=== PATIENT | female | born 1955 | race Caucasian/White ===

== ENCOUNTER → 2016-04-15 | Outpatient (CLI) | payer OTHER ==
[~2016-04-15] MED LIST: ANAS1TAB6 PO; AZITTAB PO; CETI10TA84 PO; CHOL100010 PO; FLUT0.15 NAE; HYDR-5688 PO; LEVOPOW PO; LORA10TA44 PO; MULT-506 PO; NAPR1CAP12 PO; TAMO20TA47 PO; ZNTT/150 PO
[2016-04-15 12:23] LABS: BASO % 0.8 %; BASO ABS # 0.04 K/uL (0-0.2); COMPLETE YES; LYMPH % 23.3 %; LYMPH ABS # 1.16 K/uL (1.2-3.4); MEAN CELL VOLUME 93.3 fL (80-100); MEAN CORPUSCULAR HEMOGLOBIN 30.6 pg (25-34); MEAN CORPUSCULAR HGB CONC 32.8 g/dl (32-36); MONO % 11.1 %; NEUT % 62.8 %; PLATELET COUNT 234 K/uL (130-400); RED BLOOD COUNT 3.86 M/uL (4.2-5.4); WHITE BLOOD COUNT 4.97 K/uL (4.8-10.8)
[2016-04-15 12:35] LABS: ALT/SGPT 84 U/L (12-78); BLOOD UREA NITROGEN 13 mg/dl (7-18); BUN/CREATININE RATIO 16.4 (10-20); CALCIUM 9.2 mg/dl (8.5-10.1); CARBON DIOXIDE 26 mmol/L (21-32); CHLORIDE 106 mmol/L (98-107); CREATININE 0.77 mg/dl (0.60-1.20); GLUCOSE 96 mg/dl (70-99); POTASSIUM 3.9 mmol/L (3.5-5.1); SODIUM 142 mmol/L (136-145)
[2016-04-15 12:38] LABS: ALB/GLOB RATIO 1.1 (0.9-2); ALKALINE PHOSPHATASE 109 U/L (45-117); AST/SGOT 50 U/L (15-37)
--- NOTE | 2016-04-17 07:26 | CODING QUERY NO DIAGNOSIS ---
TREATMENT RENDERED WITHOUT A DIAGNOSIS To promote full compliance with coding requirements relating to patient care, physician participation is requested in all cases of middle school director uncertainty. Please assist us with providing a diagnosis/symptom for the test(s) below: A diagnosis/symptom was not documented on your Order. A valid diagnosis/symptom is required to bill all insurances. Please remember that we are unable to code a diagnosis of rule out, probable, possible, questionable, or suspected. Tests that require a diagnosis: DOS 04/15 * CBC, CMP DIAGNOSIS: Provider Signature: Date: Thank you Carmelina Mtz Health Information Management Once completed, please kindly fax back to [phone] For questions please call [phone]
== END | disposition home or self-care (01) ==
LOC: C.LABBFT 08:59
PROVIDERS: ATTEND Internal Medicine Hematology & Oncology
DX: D05.10 Intraductal carcinoma in situ of unspecified breast (principal)

== ENCOUNTER → 2016-04-17 | Outpatient (CLI) | payer OTHER ==
[2016-04-17 14:36] VITALS: BP 119/71; PULSE 82; TEMP 36.9; O2SAT 93
--- NOTE | 2016-04-17 16:03 | Radiation Oncology Follow-Up ---
Radiation Oncology Follow-Up Date of Visit Apr 17, 2016. Reason For Visit One month and cancer survivorship care plan Radiation Completion Date finished 03-14-2016 Diagnosis (1) Breast cancer Onset Date: 12/19/2015 Stage: 0 Permanent Comment: STAGING: Right breast, DCIS, high grade, comedonecrosis present, ER positive, [place] negative, pTis, stage 0 TREATMENT: 1. Steriotactic Biopsy - 12/19/2015 2. Lumpectomy - 01/15/2016 - Dr. Bc Hernandez 3. Status post completion of radiation therapy 03/14/2016 received 5130 cGy utilizing hypo-fractionation Last Edited By: Malinda Miller on Mar 24, 2016 14:59 History of Present Illness Ms. Frias is a 60-year-old postmenopausal female who presented with an abnormal screening mammogram on 11/27/2015 which showed a cluster of calcifications in the right breast. She underwent a unilateral right diagnostic mammogram on 12/19/2015 which revealed a cluster of microcalcifications in the right breast from the 11:00 to 11:30 position measuring 2 cm in diameter. She then underwent a stereotactic guided biopsy of the right breast on 12/19/2015 which revealed atypical ductal hyperplasia suspicious for ductal carcinoma in situ. The patient was seen in consultation by Dr. Bc Hernandez who discussed treatment options including mastectomy and breast conserving therapy including a lumpectomy and adjuvant radiation therapy. The patient elected for a lumpectomy and underwent the procedure 01/[address] Bc Hernandez. 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 The margins were negative however there was a close 1 mm margin. The tumor was estrogen receptor positive and progesterone receptor negative. The patient was seen by Dr. Gerry Bell for medical oncology who recommended anti-hormonal therapy. We are now seeing the patient in consultation to discuss the role of adjuvant radiation therapy. Overall, the patient is doing relatively well. She is feeling well from her surgery. She has no other complaints. Final decision following CT simulation was to treat with a hypo-fractionation. This was completed March 2016. She received 5130 cGy Interim History She's been doing well over the past month. She had some mild dryness of the skin for which she used Aquaphor following treatment. She is noted no masses or tenderness. She saw Dr. Bell in follow-up and has now been started on tamoxifen. She denies any side effects to the medication. She has noticed no hot flashes. She has had no problems with weight gain. She saw him in January and had a recheck again this past week. She currently is not scheduled for follow-up mammography. She has a recheck visit with Dr. Hernandez scheduled. Allergies Coded Allergies: Statins (Verified Allergy, Unknown, MUSCLE PAINS, 01/15/16) Home Medications Scheduled Cholecalciferol (Vitamin D), 1 TAB PO QAM Levothyroxine Sodium (Bulk) (L-Thyroxine Sodium), 25 MCG PO QAM Multivitamin (Multivitamin), 2 TAB PO QAM Tamoxifen (Nolvadex), 20 MG PO DAILY Scheduled PRN Loratadine (Allergy), 1 TAB PO DAILY PRN for PRN Naproxen Sodium (Aleve), 1 TAB PO BID PRN for Pain Review of Systems Gastrointestinal: Symptoms: WNL Oral: Symptoms: No Problems Respiratory: Symptoms: WNL Urinary: Symptoms: WNL Skin: Symptoms: No Problems Breast: Right Upper Arm Measurement: 34.5 Right Mid Arm Measurement: 27.5 Right Wrist Measurement: 17.0 Left Upper Arm Measurement: 34.7 Left Mid Arm Measurement: 27.4 Left Wrist Measurement: 17.0 Arm Dominence: Right Patient Cosmetic Evaluation: Good Staff Cosmetic Evalaluation: Good Physical Exam Vital Signs Date Time Temp Pulse Resp B/P Pulse Ox O2 Delivery O2 Flow Rate FiO2 04/17/16 14:36 36.9 82 18 119/71 93 Pain: Side: Bilateral Patient Pain Scale: 0 - 10 Initial Pain Intensity: 0.0 General Appearance: no apparent distress Eyes: normal inspection, EOMI ENT: normal ENT inspection, hearing grossly normal Neck: no adenopathy, thyroid normal Respiratory/Chest: lungs clear, no respiratory distress, no accessory muscle use Breast: Breast examination reveals mild hyperpigmentation especially noted of the right upper anterior chest wall just below the breast. There is fading hyperpigmentation of the breast. There are no masses or tenderness and no axillary adenopathy. She is no skin retractions or nipple changes. Using the [place] score cosmesis she has a good outcome. Left breast shows no masses or tenderness and no axillary adenopathy. Cardiovascular: regular rate, rhythm, no gallop, no murmur Extremities: no pedal edema Neurologic/Psychiatric: no motor/sensory deficits, alert, normal mood/affect Skin: warm/dry Lymphatic: no adenopathy Laboratory Studies Test 01/22/16 15:30 04/15/16 09:03 White Blood Count 8.16 K/uL (4.8-10.8) 4.97 K/uL (4.8-10.8) Red Blood Count 3.92 M/uL (4.2-5.4) 3.86 M/uL (4.2-5.4) Hemoglobin 12.3 g/dL (12.0-16.0) 11.8 g/dL (12.0-16.0) Hematocrit 36.3 % (37-47) 36.0 % (37-47) Mean Corpuscular Volume 92.6 fL (80-100) 93.3 fL (80-100) Mean Corpuscular Hemoglobin 31.4 pg (25-34) 30.6 pg (25-34) Mean Corpuscular Hemoglobin Concent 33.9 g/dl (32-36) 32.8 g/dl (32-36) Platelet Count 254 K/uL (130-400) 234 K/uL (130-400) Mean Platelet Volume 11.6 fL (7.4-10.4) 12.0 fL (7.4-10.4) Neutrophils (%) (Auto) 57.1 % 62.8 % Lymphocytes (%) (Auto) 31.7 % 23.3 % Monocytes (%) (Auto) 9.1 % 11.1 % Eosinophils (%) (Auto) 1.7 % 2.0 % Basophils (%) (Auto) 0.2 % 0.8 % Neutrophils # (Auto) 4.65 K/uL (1.4-6.5) 3.12 K/uL (1.4-6.5) Lymphocytes # (Auto) 2.59 K/uL (1.2-3.4) 1.16 K/uL (1.2-3.4) Monocytes # (Auto) 0.74 K/uL (0.11-0.59) 0.55 K/uL (0.11-0.59) Eosinophils # (Auto) 0.14 K/uL (0-0.5) 0.10 K/uL (0-0.5) Basophils # (Auto) 0.02 K/uL (0-0.2) 0.04 K/uL (0-0.2) RDW Standard Deviation 44.7 fL (36.4-46.3) 46.4 fL (36.4-46.3) RDW Coefficient of Variation 13.2 % (11.5-14.5) 13.7 % (11.5-14.5) Immature Granulocyte % (Auto) 0.2 % 0.0 % Immature Granulocyte # (Auto) 0.02 K/uL (0.00-0.02) 0.00 K/uL (0.00-0.02) Sodium Level 141 mmol/L (136-145) 142 mmol/L (136-145) Potassium Level 3.7 mmol/L (3.5-5.1) 3.9 mmol/L (3.5-5.1) Chloride Level 104 mmol/L (98-107) 106 mmol/L (98-107) Carbon Dioxide Level 29 mmol/L (21-32) 26 mmol/L (21-32) Anion Gap 8.0 mmol/L (3-11) 10.0 mmol/L (3-11) Blood Urea Nitrogen 16 mg/dl (7-18) 13 mg/dl (7-18) Creatinine 0.81 mg/dl (0.60-1.20) 0.77 mg/dl (0.60-1.20) Estimated GFR () 91.5 97.3 Estimated GFR (Non- 78.9 83.9 BUN/Creatinine Ratio 20.2 (10-20) 16.4 (10-20) Random Glucose 75 mg/dl (70-99) 96 mg/dl (70-99) Calcium Level 9.0 mg/dl (8.5-10.1) 9.2 mg/dl (8.5-10.1) Total Bilirubin 0.4 mg/dl (0.2-1) 0.4 mg/dl (0.2-1) Aspartate Amino Transferase (AST) 23 U/L (15-37) 50 U/L (15-37) Alanine Aminotransferase (ALT) 32 U/L (12-78) 84 U/L (12-78) Alkaline Phosphatase 104 U/L (45-117) 109 U/L (45-117) Total Protein 8.1 gm/dl (6.4-8.2) 7.6 gm/dl (6.4-8.2) Albumin 4.4 gm/dl (3.4-5.0) 4.0 gm/dl (3.4-5.0) Globulin 3.7 gm/dl (2.5-4.0) 3.6 gm/dl (2.5-4.0) Albumin/Globulin Ratio 1.2 (0.9-2) 1.1 (0.9-2) Assessment & Plan Plan: The patient was seen and examined today by Dr. Agosto. Continue regular follow-up with her primary Care physician, Dr. Bell and Dr. Hernandez. Follow-up mammography was scheduled. She will have digital diagnostic mammograms. The right breast will be evaluated in 2 months. She'll then have bilateral mammography in 8 months. We reviewed that she'll continue digital diagnostic mammograms of the right breast every 6 months for 2 years. Then we'll follow the recommendation of the radiologist. Today we completed a cancer survivorship care plan. A copy of the document was given to the patient. She is also given a survivorship booklet. She continues on the tamoxifen. She'll continue Aquaphor as needed for dryness of the skin. We asked her to return to our office in 6 months. She may call she has any questions or concerns in the interim. Total Time In Follow-Up I spent 20 minutes speaking to the patient and performing examination. I spent 20 minutes reviewing information, completing survivorship document, and completing this note. Copy To Bc Hernandez M.D.; Malvin Bliss M.D.; Gerry Bell D.O.
== END | disposition home or self-care (01) ==
LOC: C.ONC 14:22
PROVIDERS: ATTEND Radiology Radiation Oncology
DX: Z08 Encounter for follow-up examination after completed treatment for malignant neoplasm (principal); Z92.3 Personal history of irradiation; Z85.3 Personal history of malignant neoplasm of breast

== ENCOUNTER → 2016-06-16 | Outpatient (CLI) | payer OTHER ==
[~2016-06-16] MED LIST changes: -HYDR-5688 PO; -TAMO20TA47 PO; +TAMO20TA9 PO
--- NOTE | 2016-06-16 12:44 | MAMMOGRAPHY REPORT ---
UNILATERAL RIGHT DIGITAL DIAGNOSTIC MAMMOGRAM TOMOSYNTHESIS WITH CAD: 06/16/2016 CLINICAL HISTORY: 61-year-old woman with right breast DCIS status post lumpectomy and radiation ther apy. She presents to establish new baseline after treatment in the right breast. TECHNIQUE: Right breast CC and MLO 2-D digital and tomosynthesis images, spot magnification right CC and ML views were obtained. Current study was also evaluated with a Computer Aided Detection (CAD) system. COMPARISON: Comparison is made to exams dated: 12/10/2015 mammogram, 11/27/2015 mammogram, 11/23/2014 mammogram, 11/22/2013 mammogram, 11/18/2012 mammogram, and 11/17/2011 mammogram - [facility]. BREAST COMPOSITION: There are scattered areas of fibroglandular density in the right breast. FINDINGS: There is expected architectural distortion and 2 surgical clips in the 9:00 posterior rig ht breast, at the site of prior lumpectomy. A linear scar marker overlies the upper outer posterior right breast. There is a grouping of 2 round and adjacent very faint punctate amorphous microcalci fications extending over 11 mm in the upper outer posterior right breast, superior to the lumpectomy bed. Based on the spot magnification ML view and comparing back to prior available for field mammo grams, these microcalcifications have been stable on all available prior mammograms dating back to a t least 11/13/2009, and likely also 2005 based on the records available, although technique is sligh tly different given the screen film mammograms have been digitized and scanned into the system. Wit h approximately 7-11 years of stability these microcalcifications are most likely benign but can con tinue to assess that follow-up to ensure stability. Overall, no new suspicious mass, focal area of architectural distortion or new suspicious cluster of calcifications is identified. IMPRESSION: ACR-BI-RADS CATEGORY 3: PROBABLY BENIGN Expected post-therapeutic changes in the right breast, without definite mammographic evidence of mal ignancy. Follow-up right diagnostic mammograms including spot magnification views are recommended i n 6 months. Annual left mammography is also due at that time. These results and recommendations were discussed with the patient at the time of the exam. Approximately 10% of breast cancers are not detected with mammography. A negative mammographic repor t should not delay biopsy if a clinically suggestive mass is present. Bharti Adamson M.D. ay/:06/16/2016 10:56:46 Tourist Guide: Dena AYALA(R)(M), [facility] letter sent: Follow Up Recommended 3 BI-RADS Code: ACR-BI-RADS Category 3: Probably Benign
== END | disposition home or self-care (01) ==
LOC: C.MAMM 09:28
PROVIDERS: ATTEND Physician Assistant Medical
DX: D05.11 Intraductal carcinoma in situ of right breast (principal); Z98.890 Other specified postprocedural states; Z92.3 Personal history of irradiation

== ENCOUNTER → 2016-06-18 | Outpatient (CLI) | payer OTHER ==
[2016-06-18 12:59] LABS: ALKALINE PHOSPHATASE 96 U/L (45-117); ALT/SGPT 86 U/L (12-78); AST/SGOT 37 U/L (15-37)
== END | disposition home or self-care (01) ==
LOC: C.LABBFT 08:46
PROVIDERS: ATTEND Family Medicine
DX: D05.11 Intraductal carcinoma in situ of right breast (principal)

== ENCOUNTER → 2016-07-11 | Outpatient (CLI) | payer OTHER ==
[~2016-07-11] MED LIST changes: -LORA10TA44 PO
[2016-07-11 13:53] LABS: URINE APPEARANCE CLEAR (CLEAR); URINE BILIRUBIN NEG (NEG); URINE COLOR YELLOW; URINE EPITHELIAL CELL AUTO >30 /lpf (0-5); URINE NITRITE NEG (NEG); URINE SPECIFIC GRAVITY 1.017 (1.000-1.030); UROBILINOGEN NEG (NEG); ZZUR CULT IF INDIC CLEAN CATCH NO
[2016-07-11 13:57] LABS: MANUAL MICROSCOPIC REQUIRED? NO; REVIEW REQ? NO
== END | disposition home or self-care (01) ==
LOC: C.LABSPEC 12:36
PROVIDERS: ATTEND Internal Medicine
DX: R25.1 Tremor, unspecified (principal)

== ENCOUNTER → 2016-07-23 | Outpatient (CLI) | payer OTHER ==
[2016-07-23 12:31] LABS: ALKALINE PHOSPHATASE 125 U/L (45-117); ALT/SGPT 147 U/L (12-78); AST/SGOT 76 U/L (15-37)
== END | disposition home or self-care (01) ==
LOC: C.LABBFT 08:27
PROVIDERS: ATTEND Physician Assistant Medical
DX: R74.8 Abnormal levels of other serum enzymes (principal)

== ENCOUNTER → 2016-07-30 | Outpatient (CLI) | payer OTHER ==
--- NOTE | 2016-07-30 08:26 | DIAGNOSTIC IMAGING REPORT ---
Hydrocodone ultrasound (LIVER) ABDOMEN LIMITED CLINICAL HISTORY: R74.8 Abnormal liver enzymes TECHNIQUE: Ultrasound COMPARISON STUDY: None FINDINGS: Fatty infiltration of liver. Normal gallbladder. Common bile duct 4 mm. Normal pancreas and right kidney. IMPRESSION: Fatty infiltration of liver. Otherwise normal study Electronically signed by: Luis Armando Oakes M.D. 07/30/2016 8:25 AM Dictated Date/Time: 07/30/2016 8:24 AM
== END | disposition home or self-care (01) ==
LOC: C.ULTR 07:47
PROVIDERS: ATTEND Nurse Practitioner
DX: R74.8 Abnormal levels of other serum enzymes (principal); K76.0 Fatty (change of) liver, not elsewhere classified

== ENCOUNTER → 2016-08-08 | Outpatient (CLI) | payer OTHER ==
[2016-08-08 12:47] LABS: HEPATITIS B AB NEG
[2016-08-08 12:56] LABS: ALKALINE PHOSPHATASE 123 U/L (45-117); ALT/SGPT 111 U/L (12-78); AST/SGOT 60 U/L (15-37); FERRITIN 388.7 ng/ml (8.0-388.0)
[2016-08-13 14:07] LABS: ALPHA-1-ANTITRYPSIN TC 67710E 184 MG/DL (83-199)
== END | disposition home or self-care (01) ==
LOC: C.LABBFT 07:54
PROVIDERS: ATTEND Internal Medicine
DX: R74.8 Abnormal levels of other serum enzymes (principal)

== ENCOUNTER → 2016-08-19 | Outpatient (CLI) | payer OTHER ==
[2016-08-19 12:21] LABS: BASO % 1.3 %; BASO ABS # 0.06 K/uL (0-0.2); COMPLETE YES; EOS % 3.1 %; HEMATOCRIT 36.5 % (37-47); MEAN CELL VOLUME 96.6 fL (80-100); MEAN CORPUSCULAR HEMOGLOBIN 32.3 pg (25-34); MEAN CORPUSCULAR HGB CONC 33.4 g/dl (32-36); MEAN PLATELET VOLUME 12.3 fL (7.4-10.4); MONO % 11.8 %; NEUT % 54.8 %; PLATELET COUNT 214 K/uL (130-400); RED BLOOD COUNT 3.78 M/uL (4.2-5.4); WHITE BLOOD COUNT 4.49 K/uL (4.8-10.8)
[2016-08-19 12:41] LABS: ALT/SGPT 77 U/L (12-78); BLOOD UREA NITROGEN 11 mg/dl (7-18); CARBON DIOXIDE 27 mmol/L (21-32); CHLORIDE 106 mmol/L (98-107); CREATININE 0.94 mg/dl (0.60-1.20); GLUCOSE 92 mg/dl (70-99); POTASSIUM 3.9 mmol/L (3.5-5.1); SODIUM 142 mmol/L (136-145)
[2016-08-19 12:43] LABS: CALCIUM 9.1 mg/dl (8.5-10.1)
[2016-08-19 12:44] LABS: ALKALINE PHOSPHATASE 104 U/L (45-117); AST/SGOT 38 U/L (15-37)
== END | disposition home or self-care (01) ==
LOC: C.LABBFT 08:05
PROVIDERS: ATTEND Internal Medicine Hematology & Oncology
DX: D05.11 Intraductal carcinoma in situ of right breast (principal)

== ENCOUNTER → 2016-09-10 | Outpatient (CLI) | payer OTHER ==
[~2016-09-10] MED LIST changes: +TAMO20TA47 PO; -TAMO20TA9 PO
[2016-09-10 12:48] LABS: ALKALINE PHOSPHATASE 101 U/L (45-117); ALT/SGPT 101 U/L (12-78); AST/SGOT 56 U/L (15-37)
== END | disposition home or self-care (01) ==
LOC: C.LABBFT 07:37
PROVIDERS: ATTEND Internal Medicine
DX: R74.8 Abnormal levels of other serum enzymes (principal)

== ENCOUNTER → 2016-09-23 | Outpatient (CLI) | payer OTHER ==
[2016-09-23 16:14] LABS: TOTAL IRON BINDING CAPACITY 421 mcg/dl (250-450)
== END | disposition home or self-care (01) ==
LOC: C.LAB1850 14:49
PROVIDERS: ATTEND Registered Nurse
DX: R74.8 Abnormal levels of other serum enzymes (principal)

== ENCOUNTER → 2016-10-16 | Outpatient (CLI) | payer OTHER ==
[2016-10-16 14:29] VITALS: BP 112/70; PULSE 76; TEMP 36.8; O2SAT 96
--- NOTE | 2016-10-16 15:56 | Radiation Oncology Follow-Up ---
Radiation Oncology Follow-Up Date of Visit Oct 16, 2016. Reason For Visit 6 month follow-up Radiation Completion Date finished 03-14-2016 Diagnosis (1) Breast cancer Onset Date: 12/19/2015 Stage: 0 Permanent Comment: STAGING: Right breast, DCIS, high grade, comedonecrosis present, ER positive, [place] negative, pTis, stage 0 TREATMENT: 1. Steriotactic Biopsy - 12/19/2015 2. Lumpectomy - 01/15/2016 - Dr. Bc Hernandez 3. Status post completion of radiation therapy 03/14/2016 received 5130 cGy utilizing hypo-fractionation Last Edited By: Malinda Miller on Mar 24, 2016 14:59 History of Present Illness Ms. Frias is a 61 year-old postmenopausal female who presented with an abnormal screening mammogram on 11/27/2015 which showed a cluster of calcifications in the right breast. She underwent a unilateral right diagnostic mammogram on 12/19/2015 which revealed a cluster of microcalcifications in the right breast from the 11:00 to 11:30 position measuring 2 cm in diameter. She then underwent a stereotactic guided biopsy of the right breast on 12/19/2015 which revealed atypical ductal hyperplasia suspicious for ductal carcinoma in situ. The patient was seen in consultation by Dr. Bc Hernandez who discussed treatment options including mastectomy and breast conserving therapy including a lumpectomy and adjuvant radiation therapy. The patient elected for a lumpectomy and underwent the procedure 01/[address] Bc Hernandez. 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 The margins were negative however there was a close 1 mm margin. The tumor was estrogen receptor positive and progesterone receptor negative. The patient was seen by Dr. Gerry Bell for medical oncology who recommended anti-hormonal therapy. We are now seeing the patient in consultation to discuss the role of adjuvant radiation therapy. Overall, the patient is doing relatively well. She is feeling well from her surgery. She has no other complaints. Final decision following CT simulation was to treat with a hypo-fractionation. This was completed March 2016. She received 5130 cGy Interim History She's been doing well over the past 6 months. She's noted no changes to her breast. There are no masses or tenderness no change of the axilla. She's had no swelling of her arm. She is up-to-date on mammography. She did have difficulty with antiestrogen therapy. She was started on tamoxifen. This causes swelling of her hands and elevated liver function studies. The medication was stopped. Within 2 weeks her symptoms had resolved. Her laboratory studies improved. Decision was to continue off the medication and start anastrozole. She has had no difficulty with taking this medication. Her next mammogram is scheduled for 12/23/2016. Allergies Coded Allergies: Statins (Verified Allergy, Unknown, MUSCLE PAINS, 06/27/16) Home Medications Scheduled Anastrozole (Anastrozole), 1 TAB PO DAILY Cholecalciferol (Vitamin D), 1 TAB PO QAM Levothyroxine Sodium (Bulk) (L-Thyroxine Sodium), 25 MCG PO QAM Multivitamin (Multivitamin), 2 TAB PO QAM Ranitidine (Zantac), 1 TAB PO BID Scheduled PRN Fluticasone Propionate (Nasal) (Flonase Allergy Relief), 2 SPRAYS ABE QPM PRN for ALLERGIES Naproxen Sodium (Aleve), 1 TAB PO BID PRN for Pain Review of Systems Gastrointestinal: Symptoms: WNL Oral: Symptoms: No Problems Respiratory: Symptoms: WNL Urinary: Comments: occ nocturia Skin: Symptoms: No Problems Breast: Right Upper Arm Measurement: 34.5 Right Mid Arm Measurement: 27.5 Right Wrist Measurement: 17.0 Left Upper Arm Measurement: 34.5 Left Mid Arm Measurement: 25.5 Left Wrist Measurement: 17.1 Arm Dominence: Right Patient Cosmetic Evaluation: Excellent Staff Cosmetic Evalaluation: Excellent Physical Exam Vital Signs Date Time Temp Pulse Resp B/P (MAP) Pulse Ox O2 Delivery O2 Flow Rate FiO2 10/16/16 14:29 36.8 76 16 112/70 96 Pain: Side: Bilateral Patient Pain Scale: 0 - 10 Initial Pain Intensity: 0.0 Fatigue: None General Appearance: no apparent distress Eyes: normal inspection, EOMI ENT: normal ENT inspection, hearing grossly normal Neck: no adenopathy, thyroid normal Respiratory/Chest: lungs clear, no respiratory distress, no accessory muscle use Breast: Breast examination reveals well-healed incision of the right breast. There are no masses or tenderness no axillary adenopathy. She has no skin retractions or nipple changes. Using the [place] score cosmesis she has a excellent outcome. The left breast showed no masses or tenderness no axillary adenopathy. Cardiovascular: regular rate, rhythm, no gallop, no murmur Extremities: no pedal edema Neurologic/Psychiatric: no motor/sensory deficits, alert, normal mood/affect Skin: warm/dry Laboratory Studies Test 08/08/16 08:00 08/19/16 08:20 09/10/16 07:50 09/23/16 14:52 Ferritin 388.7 ng/ml (8.0-388.0) Direct Bilirubin < 0.1 mg/dl (0-0.2) < 0.1 mg/dl (0-0.2) [id number] 184 MG/DL (83-199) Ceruloplasmin 35 MG/DL (18-53) Anti-Nuclear Antibody Screen NEGATIVE (NEGATIVE) Anti-Smooth Muscle Antibody LESS THAN 1:20 TITER Hepatitis B Surface Antigen NEG (NEG) Hepatitis B Surface Antibody NEG Hepatitis B Core Total Antibody NON-REACTIVE (NON-REACTIVE) Hepatitis C Antibody NEG (NEG) White Blood Count 4.49 K/uL (4.8-10.8) Red Blood Count 3.78 M/uL (4.2-5.4) Hemoglobin 12.2 g/dL (12.0-16.0) Hematocrit 36.5 % (37-47) Mean Corpuscular Volume 96.6 fL (80-100) Mean Corpuscular Hemoglobin 32.3 pg (25-34) Mean Corpuscular Hemoglobin Concent 33.4 g/dl (32-36) Platelet Count 214 K/uL (130-400) Mean Platelet Volume 12.3 fL (7.4-10.4) Neutrophils (%) (Auto) 54.8 % Lymphocytes (%) (Auto) 29.0 % Monocytes (%) (Auto) 11.8 % Eosinophils (%) (Auto) 3.1 % Basophils (%) (Auto) 1.3 % Neutrophils # (Auto) 2.46 K/uL (1.4-6.5) Lymphocytes # (Auto) 1.30 K/uL (1.2-3.4) Monocytes # (Auto) 0.53 K/uL (0.11-0.59) Eosinophils # (Auto) 0.14 K/uL (0-0.5) Basophils # (Auto) 0.06 K/uL (0-0.2) RDW Standard Deviation 47.6 fL (36.4-46.3) RDW Coefficient of Variation 13.6 % (11.5-14.5) Immature Granulocyte % (Auto) 0.0 % Immature Granulocyte # (Auto) 0.00 K/uL (0.00-0.02) Sodium Level 142 mmol/L (136-145) Potassium Level 3.9 mmol/L (3.5-5.1) Chloride Level 106 mmol/L (98-107) Carbon Dioxide Level 27 mmol/L (21-32) Anion Gap 9.0 mmol/L (3-11) Blood Urea Nitrogen 11 mg/dl (7-18) Creatinine 0.94 mg/dl (0.60-1.20) Estimated GFR () 75.9 Estimated GFR (Non- 65.5 BUN/Creatinine Ratio 12.0 (10-20) Random Glucose 92 mg/dl (70-99) Calcium Level 9.1 mg/dl (8.5-10.1) Total Bilirubin 0.3 mg/dl (0.2-1) 0.4 mg/dl (0.2-1) Aspartate Amino Transferase (AST) 38 U/L (15-37) 56 U/L (15-37) Alanine Aminotransferase (ALT) 77 U/L (12-78) 101 U/L (12-78) Alkaline Phosphatase 104 U/L (45-117) 101 U/L (45-117) Total Protein 7.5 gm/dl (6.4-8.2) 7.1 gm/dl (6.4-8.2) Albumin 3.8 gm/dl (3.4-5.0) 4.0 gm/dl (3.4-5.0) Globulin 3.7 gm/dl (2.5-4.0) Albumin/Globulin Ratio 1.0 (0.9-2) Iron Level 88 mcg/dl (35-150) Total Iron Binding Capacity 421 mcg/dl (250-450) Transferrin 325 mg/dl (200-360) Transferrin % Saturation 19 % (15-50) Anti-Mitochondrial Antibody LESS THAN 1:20 TITER Hepatitis A Antibody Total NON-REACTIVE (NON-REACTIVE) Additional Studies Patient: ALEX FRIAS [facility] Rec: [id number] Address1: [address] [place] [address] Address2: Acct ID: [id number] Date: 1955 Sex: F Ref Phy: Malvin Bliss M.D. Att Phy: Malinda Miller PA-C Marika Phy: Malvin Bliss M.D. Inter Phy: Bharti Adamson MD [facility] Zip: [place] [address] SC: C.MAMM Report #: [id number] Certified Pest Control Technician: CALVIN Diagnosis: F/U S/P TREATMENT-HX RIGHT BREAST CA Service Date: 06/16/16 MNE: [id number] Ordering Dr: Malinda Miller PA-C CC: Malinda Miller PA-C CONF: DICTATED BY: Bharti Adamson MD MAMMOGRAPHY REPORT UNILATERAL RIGHT DIGITAL DIAGNOSTIC MAMMOGRAM TOMOSYNTHESIS WITH CAD: 06/16/2016 CLINICAL HISTORY: 61-year-old woman with right breast DCIS status post lumpectomy and radiation therapy. She presents to establish new baseline after treatment in the right breast. TECHNIQUE: Right breast CC and MLO 2-D digital and tomosynthesis images, spot magnification right CC and ML views were obtained. Current study was also evaluated with a Computer Aided Detection (CAD) system. COMPARISON: Comparison is made to exams dated: 12/10/2015 mammogram, 11/27/2015 mammogram, 11/23/2014 mammogram, 11/22/2013 mammogram, 11/18/2012 mammogram, and 12/2011 mammogram - [facility]. BREAST COMPOSITION: There are scattered areas of fibroglandular density in the right breast. FINDINGS: There is expected architectural distortion and 2 surgical clips in the 9:00 posterior right breast, at the site of prior lumpectomy. A linear scar marker overlies the upper outer posterior right breast. There is a grouping of 2 round and adjacent very faint punctate amorphous microcalcifications extending over 11 mm in the upper outer posterior right breast, superior to the lumpectomy bed. Based on the spot magnification ML view and comparing back to prior available for field mammograms, these microcalcifications have been stable on all available prior mammograms dating back to at least 11/13/2009, and likely also 2006 based on the records available , although technique is slightly different given the screen film mammograms have been digitized and scanned into the system. With approximately 7-11 years of stability these microcalcifications are most likely benign but can continue to assess that follow-up to ensure stability. Overall, no new suspicious mass, focal area of architectural distortion or new suspicious cluster of calcifications is identified. IMPRESSION: ACR-BI-RADS CATEGORY 3: PROBABLY BENIGN Expected post-therapeutic changes in the right breast, without definite mammographic evidence of malignancy. Follow-up right diagnostic mammograms including spot magnification views are recommended in 6 months. Annual left mammography is also due at that time. These results and recommendations were discussed with the patient at the time of the exam. Approximately 10% of breast cancers are not detected with mammography. A negative mammographic report should not delay biopsy if a clinically suggestive mass is present. Bharti Adamson M.D. ay/:06/16/2016 10:56:46 Forest Management Professor: Dena LOPEZ)(Pro), [facility] letter sent: Follow Up Recommended 3 BI-RADS Code: ACR-BI-RADS Category 3: Probably Benign Dictated by: Bharti Adamson MD Signed by: Bharti Adamson MD Assessment & Plan Plan: She was also seen and examined by Dr. Agosto. Continue scheduled mammography. She'll be having a mammogram in December. She continues on anastrozole. We asked her to return to our office in 1 year. She may call if she has any questions or concerns in the interim. ADDENDUM: I agree with note created by Malinda Miller PA-C. I reviewed the patient's chart and information with her. I have examined and evaluated the patient. I reviewed relevant clinical information and answered the patient's and /or family's questions. Total Time In Follow-Up I spent 20 minutes speak to the patient and performing examination. I spent 15 minutes reviewing information in completing this note. I spent 15 minutes examining and counseling the patient. NEONATAL NURSE Copy To Bc Hernandez M.D.; Malvin Bliss M.D.; Gerry Bell D.O.
== END | disposition home or self-care (01) ==
LOC: C.ONC 14:03
PROVIDERS: ATTEND Physician Assistant Medical
DX: D05.11 Intraductal carcinoma in situ of right breast (principal)

== ENCOUNTER → 2016-12-16 | Outpatient (CLI) | payer OTHER ==
[~2016-12-16] MED LIST changes: -AZITTAB PO; -CETI10TA84 PO; -TAMO20TA47 PO
--- NOTE | 2016-12-16 14:23 | MAMMOGRAPHY REPORT ---
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 She presents for close follow-up in the right breast after treatment, and routine screening of the left breast. TECHNIQUE: Bilateral CC and MLO 2-D and tomosynthesis images, spot magnification CC and ML views of each breast were obtained. Current study was also evaluated with a Computer Aided Detection (CAD) sy stem. COMPARISON: Comparison is made to exams dated: 06/16/2016 mammogram, 01/15/2016 specimen, 01/15/2016 lo calization, 12/19/2015 stereotactic biopsy, 12/19/2015 mammogram, and 12/10/2015 mammogram - [facility]. BREAST COMPOSITION: There are scattered areas of fibroglandular density in both breasts. FINDINGS: There is expected architectural distortion in 2 surgical clips in the 9:00 far posterior r ight breast, at the site of prior lumpectomy. On the spot magnification views of the right breast, n o new microcalcifications are seen near the surgical site. There are punctate and amorphous grouped microcalcifications located 3 cm superior to the surgical clips on the spot magnification MLO view me asuring 19 mm in AP dimension. When comparing back to all available prior mammograms, these calcific ations appear nearly identical to the 2011 MLO view, and likely also the 2009 mammogram, given slight differences in technique. There are unchanged comparing to the most recent spot magnification views dated 06/16/2016. However, given their appearance is somewhat similar to the biopsy proven DCIS, de spite long-term stability definitive characterization with a stereotactic biopsy is recommended. No other new suspicious masses, calcifications or focal area of distortion is seen in the right breast. There are loosely grouped punctate microcalcifications in the upper outer posterior left breast, that appears similar to prior mammograms dating back to 2009. However, given the history of right breast DCIS with a somewhat similar appearing microcalcifications, definitive characterization with a stere otactic biopsy is also recommended in the left breast. No other new suspicious masses, asymmetry or areas of distortion are seen in the left breast. IMPRESSION: ACR BI-RADS CATEGORY 4: SUSPICIOUS Bilateral breast stereotactic guided biopsy is recommended for punctate and amorphous microcalcificat ions in the upper outer posterior right breast, 3 cm superior to the surgical site, and also punctate , loosely grouped microcalcifications in the upper outer posterior left breast. These results and recommendations were discussed with the patient at the time of the exam. She tenta tively scheduled the bilateral stereotactic biopsies prior to leaving our department. Approximately 10% of breast cancers are not detected with mammography. A negative mammographic report should not delay biopsy if a clinically suggestive mass is present. Bharti Adamson M.D. ay/:12/16/2016 10:18:43 Mangle Catcher: Selene Chiu, [facility] letter sent: Abnormal 4/5 BI-RADS Code: ACR BI-RADS Category 4: Suspicious
== END | disposition home or self-care (01) ==
LOC: C.MAMM 09:16
PROVIDERS: ATTEND Physician Assistant Medical
DX: Z85.3 Personal history of malignant neoplasm of breast (principal); Z98.890 Other specified postprocedural states; R92.0 Mammographic microcalcification found on diagnostic imaging of breast

== ENCOUNTER → 2016-12-23 | Outpatient (CLI) | payer OTHER ==
[2016-12-23 12:45] LABS: ALKALINE PHOSPHATASE 135 U/L (45-117); ALT/SGPT 141 U/L (12-78); AST/SGOT 84 U/L (15-37)
== END | disposition home or self-care (01) ==
LOC: C.LABBFT 08:32
PROVIDERS: ATTEND Registered Nurse
DX: R74.8 Abnormal levels of other serum enzymes (principal)

== ENCOUNTER → 2016-12-24 | Outpatient (CLI) | payer OTHER ==
--- NOTE | 2016-12-24 10:51 | Discharge Instructions ---
Discharge Instructions Procedure Procedure Date: Dec 24, 2016. Reason for visit: Bilateral Calcifications. Discharge Discharge Date: Dec 24, 2016. Discharge Diagnosis: post bilateral breast stereotactic guided biopsy Instructions Activity Recommendations: Additional Limitations (see below) Return to School/Work: no limitations Recommended Home Diet: No Limitations Provider Instructions: ACTIVITY RECOMMENDATIONS: * No lifting, pushing, pulling or exercising the affected side for three days. RETURN TO SCHOOL/WORK: * You may return to work/school after the procedure, but do not perform any strenuous activities for 24 to 48 hours. MEDICATIONS: * Tylenol (two 325 mg) every four to six hours if needed for mild pain (if not allergic to Tylenol). DIET: * Resume previous diet. SPECIAL CARE INSTRUCTIONS: * Keep biopsy site dry for 24 hours. May shower after 24 hours, but do not soak (bathe) incision. * May remove Tegaderm (plastic patch) tomorrow AFTER showering. * Leave the steri-strips on for one week. Allow the steri-strips to fall off by themselves. If not off after one week, you may remove them. You may place a Bandaid crosswise over the strips, if desired. * Apply ice 10 minutes on and 10 minutes off as needed. * Wear a bra at bedtime to sleep more comfortably for 2-3 days. * Your referring physician should have the results after approximately 5 to 7 business days. * Call for unusual bleeding, fever, drainage, etc or if you have any questions call [phone] during normal business hours or after hours call Dr Adamson, . FOLLOW UP VISIT: Follow-up with Referring Physician as scheduled. Allergies Coded Allergies: Statins (Verified Allergy, Unknown, MUSCLE PAINS, 06/27/16) Melissa Macedo Recommendations: Call your doctor if: * Temperature above 101 degrees * Pain not relieved by pain medicine ordered * There is increased drainage or redness from any incision * You have any unanswered questions or concerns. Your Doctors Instructions noted above were prepared by provider Bharti Adamson. Patient Signature Section: Patient Instructions Signature Page Danuta Frias Patient (or Guardian) Signature/Date: I have read and understand the instructions given to me by my caregivers. Caregiver/RN/Doctor Signature/Date: The above-named patient and/or guardian has received patient instructions on this date. + Original Patient Signature Page (only) stays with chart. Please make copy for patient.
--- NOTE | 2016-12-25 07:44 | MAMMOGRAPHY REPORT ---
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 COMPARISON: Comparison is made to exams dated: 12/16/2016 mammogram, 06/16/2016 mammogram, 01/15/2016 specimen, 01/15/2016 localization, 12/19/2015 stereotactic biopsy, and 12/19/2015 mammogram - [facility]. PATIENT CONSENT: After explaining the risks, benefits and alternatives of the procedure to the patien t, informed consent was obtained both verbally and in writing. Specific risks include: Bleeding, inf ection, puncture of adjacent structure, pain, nontarget biopsy, sampling error, metal allergy and med ication reaction. PROCEDURE DESCRIPTION: A time-out was performed and both breasts were confirmed as sites for biopsy. The patient was placed prone on the stereotactic biopsy table and the right breast was placed in lat eralmedial compression. A handle sander operator image was obtained that demonstrated the clustered microcalcificatio ns in question. They are amenable to sterotactic biopsy. Then +15 and -15 stereo pair images were obtained. The calcifications were targeted utilizing the coordinates obtained by the computer. The s kin was prepped with Betadine. 1% Lidocaine with and without epinipherine was administered as local a nesthesia. A small skin incision was made. Through the incision, the needle was inserted to the dept h determined by the computer. 7 samples were obtained using a [employer] 9-gauge vacuum-assisted bio psy device. The specimen radiograph demonstrated several videotape sales representative microcalcifications, therefor e, a dumbbell-shaped metallic marker was placed at the biopsy site. There was no immediate complicati on. Hemostasis was achieved after several minutes of manual compression. Then the clustered rounded and punctate macro calcifications in the upper outer posterior left breast were targeted for biopsy. With the patient prone on the biopsy table, the left breast was placed in lateralmedial compression. A handle sander operator image was obtained that demonstrated the clustered microcalcific ations in question. They are amenable to sterotactic biopsy. Then +15 and -15 stereo pair images w ere obtained. The calcifications were targeted utilizing the coordinates obtained by the computer. T he skin was prepped with Betadine. 1% Lidocaine with and without epinipherine was administered as loc al anesthesia. A small skin incision was made. Through the incision, the needle was inserted to the depth determined by the computer. 7 samples were obtained using a CUPS 9-gauge vacuum-assisted biopsy device. The specimen radiograph demonstrated several videotape sales representative microcalcifications, ther efore, a dumbbell-shaped metallic marker was placed at the biopsy site. There was no immediate compli cation. Hemostasis was achieved after several minutes of manual compression. The left breast samples were sent in one container as they were seen interspersed throughout all core samples. The right breast core biopsy samples were demonstrating with calcifications and without calcifications in 2 appropriately labeled containers. The patient left the department in sat isfactory condition. Postprocedure CC and ML views of each breast were obtained. New dumbbell-shaped biopsy marker clips are seen in each upper outer quadrant. There is a small, 1 cm hematoma at the biopsy site in the upp er outer posterior right breast, no significant hematoma identified in the left breast. IMPRESSION: STEREOTACTIC GUIDED BIOPSY Status post bilateral breast stereotactic guided biopsy of clustered micro-calcifications in each upp er outer quadrant, with biopsy marker clips placed at each site. The patient will receive notification of the biopsy results from her referring physician. Bharti Adamson M.D. ay/:12/24/2016 11:56:11 Office Machine Servicer: Donnell LOPEZ)(Pro), [facility]
--- NOTE | 2016-12-25 07:44 | MAMMOGRAPHY REPORT ---
STEREOTACTIC GUIDED BIOPSY: 12/24/2016 CLINICAL HISTORY: Indeterminate clustered microcalcifications in each upper outer quadrant. Personal history of right breast DCIS status post breast conserving treatment. Patient presents for dolores [place]wood stereotactic guided biopsies. Please refer to the report from stereotactic guided biopsy performed at the same time for full detail . IMPRESSION: STEREOTACTIC GUIDED BIOPSY Please refer to the report from stereotactic guided biopsy performed at the same time for full detail . Bharti Adamson M.D. ay/:12/24/2016 11:56:53 Burr Sander: Lorena AYALA(R)(M), [facility]
--- NOTE | 2016-12-25 07:49 | MAMMOGRAPHY REPORT ---
BILATERAL DIGITAL DIAGNOSTIC MAMMOGRAM: 12/24/2016 CLINICAL HISTORY: Status post bilateral breast stereotactic guided biopsy of clustered micro-calcific ations in each upper outer quadrant. Personal history of right breast DCIS status post breast conser ving therapy. Please refer to reports from right and left stereotactic guided biopsy performed at the same time for full detail. IMPRESSION: POST PROCEDURE IMAGING FOR MARKER PLACEMENT Please refer to reports from right and left stereotactic guided biopsy performed at the same time for full detail. Approximately 10% of breast cancers are not detected with mammography. A negative mammographic report should not delay biopsy if a clinically suggestive mass is present. Bharti Adamson M.D. ay/:12/24/2016 10:53:54 Boiler Out: Donnell AYALA(R)(M), [facility] BI-RADS Code: Post Procedure Imaging For Marker Placement
== END | disposition home or self-care (01) ==
LOC: C.MAMM 09:08
PROVIDERS: ATTEND Physician Assistant Medical
DX: R92.0 Mammographic microcalcification found on diagnostic imaging of breast (principal)

== ENCOUNTER → 2017-02-16 | Outpatient (CLI) | payer OTHER ==
[2017-02-16 12:16] LABS: BASO % 0.5 %; BASO ABS # 0.03 K/uL (0-0.2); COMPLETE YES; EOS % 2.9 %; HEMATOCRIT 38.7 % (37-47); IG% 0.2 %; LYMPH % 28.1 %; LYMPH ABS # 1.54 K/uL (1.2-3.4); MEAN CELL VOLUME 96.5 fL (80-100); MEAN CORPUSCULAR HEMOGLOBIN 31.7 pg (25-34); MEAN CORPUSCULAR HGB CONC 32.8 g/dl (32-36); MEAN PLATELET VOLUME 11.8 fL (7.4-10.4); MONO % 10.7 %; NEUT % 57.6 %; PLATELET COUNT 249 K/uL (130-400); RED BLOOD COUNT 4.01 M/uL (4.2-5.4); WHITE BLOOD COUNT 5.49 K/uL (4.8-10.8)
[2017-02-16 12:49] LABS: ALT/SGPT 136 U/L (12-78); AST/SGOT 71 U/L (15-37); BLOOD UREA NITROGEN 14 mg/dl (7-18); BUN/CREATININE RATIO 15.8 (10-20); CALCIUM 9.4 mg/dl (8.5-10.1); CARBON DIOXIDE 29 mmol/L (21-32); CHLORIDE 102 mmol/L (98-107); CREATININE 0.86 mg/dl (0.60-1.20); GLUCOSE 94 mg/dl (70-99); POTASSIUM 3.8 mmol/L (3.5-5.1); SODIUM 137 mmol/L (136-145)
[2017-02-16 12:52] LABS: ALB/GLOB RATIO 1.1 (0.9-2); ALKALINE PHOSPHATASE 127 U/L (45-117)
== END | disposition home or self-care (01) ==
LOC: C.LABBFT 07:52
PROVIDERS: ATTEND Internal Medicine Hematology & Oncology
DX: D05.11 Intraductal carcinoma in situ of right breast (principal)

== ENCOUNTER → 2017-03-26 | Outpatient (CLI) | payer OTHER ==
[2017-03-26 13:42] LABS: ALBUMIN 4.1 gm/dl (3.4-5.0); ALT/SGPT 64 U/L (12-78); AST/SGOT 29 U/L (15-37); BLOOD UREA NITROGEN 19 mg/dl (7-18); CALCIUM 9.5 mg/dl (8.5-10.1); CARBON DIOXIDE 31 mmol/L (21-32); CREATININE 0.88 mg/dl (0.60-1.20); GLUCOSE 93 mg/dl (70-99); POTASSIUM 3.9 mmol/L (3.5-5.1); SODIUM 138 mmol/L (136-145); TOTAL PROTEIN 7.8 gm/dl (6.4-8.2)
[2017-03-26 13:53] LABS: ALKALINE PHOSPHATASE 113 U/L (45-117)
== END | disposition home or self-care (01) ==
LOC: C.LABBFT 08:16
PROVIDERS: ATTEND Internal Medicine
DX: E03.9 Hypothyroidism, unspecified (principal); R74.8 Abnormal levels of other serum enzymes; E55.9 Vitamin D deficiency, unspecified

== ENCOUNTER → 2017-04-30 | Outpatient (CLI) | payer OTHER ==
[~2017-04-30] MED LIST changes: +RANI150T85 PO; -ZNTT/150 PO
== END | disposition home or self-care (01) ==
LOC: C.MAMM 12:59
PROVIDERS: ATTEND Internal Medicine
DX: Z78.0 Asymptomatic menopausal state (principal); M85.89 Other specified disorders of bone density and structure, multiple sites

== ENCOUNTER → 2017-06-24 | Outpatient (CLI) | payer OTHER ==
[~2017-06-24] MED LIST changes: +ANAS1TAB19 PO; -ANAS1TAB6 PO; +ANAS1TAB7 PO; +ASCO125C3 PO; +FLAX1CAP11 PO; +LEVO25TA5 PO; +MISCCAP80 PO; +MULT1CHW39 PO; +ONDA4TAB46 PO
--- NOTE | 2017-06-24 15:14 | MAMMOGRAPHY REPORT ---
UNILATERAL RIGHT DIGITAL DIAGNOSTIC MAMMOGRAM TOMOSYNTHESIS WITH CAD: 06/24/2017 CLINICAL HISTORY: History of right breast cancer status post lumpectomy January 2016. Also with rec ent stereotactic biopsy of right breast calcifications December 2016 which yielded benign pathology. The patient reports no new lumps or other complaints. TECHNIQUE: Breast tomosynthesis in addition to standard 2D mammography was performed. Current study was also evaluated with a Computer Aided Detection (CAD) system. Right CC and MLO 2D and tomosynthes is images and spot magnification right CC and ML views were obtained. COMPARISON: Comparison is made to exams dated: 12/24/2016 stereotactic biopsy, 12/24/2016 mammogram, 12/24/2016 stereotactic biopsy, 12/16/2016 mammogram, 06/16/2016 mammogram, and 01/15/2016 specimen - [facility]. BREAST COMPOSITION: There are scattered areas of fibroglandular density in the right breast. FINDINGS: There are stable postsurgical changes in the right upper outer quadrant from prior lumpecto my, including stable density, architectural distortion, and surgical clips at the lumpectomy bed. A biopsy marker clip is seen within the right upper outer quadrant superior to the lumpectomy bed at th e site of recent benign stereotactic biopsy. A few residual punctate calcifications at the biopsy si te are stable. There are no suspicious masses, calcifications, or areas of architectural distortion noted in either breast. IMPRESSION: ACR-BI-RADS CATEGORY 3: PROBABLY BENIGN Stable postsurgical and postbiopsy changes in the right breast,, without mammographic evidence of mal ignancy in the right breast. Recommend bilateral diagnostic tomosynthesis mammograms in 6 months to reevaluate right breast posttreatment changes and for routine mammography of the left breast. The patient has been verbally notified of the results. Approximately 10% of breast cancers are not detected with mammography. A negative mammographic report should not delay biopsy if a clinically suggestive mass is present. Melody Ho M.D. /:06/24/2017 08:47:29 Supervisor Production: Selene Chiu, [facility] letter sent: Personal History 3 BI-RADS Code: ACR-BI-RADS Category 3: Probably Benign
== END | disposition home or self-care (01) ==
LOC: C.MAMM 08:17
PROVIDERS: ATTEND Physician Assistant Medical
DX: Z85.3 Personal history of malignant neoplasm of breast (principal); Z08 Encounter for follow-up examination after completed treatment for malignant neoplasm

== ENCOUNTER → 2017-06-29 | Outpatient (CLI) | payer OTHER | END | disposition home or self-care (01) | LOC: C.LABBFT 13:46 | PROVIDERS: ATTEND Internal Medicine | DX: R39.9 Unspecified symptoms and signs involving the genitourinary system (principal) ==

== ENCOUNTER → 2017-07-02 | Outpatient (CLI) | payer OTHER | END | disposition home or self-care (01) | LOC: C.LABBFT 08:34 | PROVIDERS: ATTEND Physician Assistant Medical | DX: R39.9 Unspecified symptoms and signs involving the genitourinary system (principal) ==

== ENCOUNTER 2017-07-10 15:31 | Emergency (ER) | payer OTHER ==
[~2017-07-10] VITALS: Ht 157.5 cm; Wt 75.6 kg
[~2017-07-10 15:31] MED LIST changes: -ANAS1TAB7 PO; -FLUT0.15 NAE; -LEVOPOW PO; -MULT-506 PO; -NAPR1CAP12 PO
[2017-07-10 15:37] VITALS: TEMP 36.6; Ht 157.5 cm; Wt 75.6 kg
[2017-07-10] MEDS ORDERED: SODIUM CHLORIDE 0.9% 500ML 500 ML IV STA (15:53)
[2017-07-10] MEDS ORDERED: ONDANSETRON INJ 2 MG/ML 2 ML VIAL IV STA (15:53)
[2017-07-10] MEDS ORDERED: KETOROLAC TROMETHAMINE 30 MG/ML VIAL IV STA (15:53)
[2017-07-10 16:31] LABS: BASO % 0.4 %; BASO ABS # 0.04 K/uL (0-0.2); EOS % 0.2 %; EOS ABS # 0.02 K/uL (0-0.5); HEMATOCRIT 35.6 % (37-47); HEMOGLOBIN 12.2 g/dL (12.0-16.0); IG# 0.03 K/uL (0.00-0.02); LYMPH % 8.9 %; LYMPH ABS # 1.01 K/uL (1.2-3.4); MEAN CELL VOLUME 91.8 fL (80-100); MEAN CORPUSCULAR HEMOGLOBIN 31.4 pg (25-34); MEAN CORPUSCULAR HGB CONC 34.3 g/dl (32-36); MEAN PLATELET VOLUME 11.4 fL (7.4-10.4); MONO % 5.4 %; MONO ABS # 0.61 K/uL (0.11-0.59); NEUT % 84.8 %; NEUT ABS # 9.69 K/uL (1.4-6.5); PLATELET COUNT 276 K/uL (130-400); RED CELL DISTRIBUTION WIDTH CV 13.2 % (11.5-14.5); RED CELL DISTRIBUTION WIDTH SD 43.9 fL (36.4-46.3)
[2017-07-10 17:01] LABS: ALBUMIN 4.6 gm/dl (3.4-5.0); ALT/SGPT 45 U/L (12-78); AST/SGOT 33 U/L (15-37); BLOOD UREA NITROGEN 22 mg/dl (7-18); CALCIUM 9.7 mg/dl (8.5-10.1); CARBON DIOXIDE 26 mmol/L (21-32); CREATININE 1.19 mg/dl (0.60-1.20); GLUCOSE 100 mg/dl (70-99); LIPASE 187 U/L (73-393); POTASSIUM 3.9 mmol/L (3.5-5.1); SODIUM 139 mmol/L (136-145)
--- NOTE | 2017-07-10 17:01 | DIAGNOSTIC IMAGING REPORT ---
ABD/PELVIS WITHOUT FOR STONE HISTORY: 62 years-old Female right flank pain eval for stone acute right-sided flank pain with concern for nephrolithiasis COMPARISON: None available TECHNIQUE: Multiple axial CT images of the abdomen and pelvis were obtained without the use of IV contrast. A dose lowering technique was used consistent with the principals of KAUR. FINDINGS: Mild subsegmental dependent bibasilar atelectasis. No pneumatosis or pneumoperitoneum. Coronary arterial calcifications are noted along with mild cardiomegaly. Mural fibrofatty changes of the left ventricular apex suggest sequela of prior myocardial infarction. Evaluation of the solid abdominal organs is limited without the use of IV contrast. Mild fatty infiltration of the liver. No intrahepatic biliary ductal dilation. Spleen, pancreas, gallbladder and left adrenal gland are unremarkable. Calcification of the medial limb right adrenal gland suggests sequela of prior hemorrhage or infection. There are several nonobstructing renal calculi on the left measuring up to 5 mm. Several nonobstructing renal calculi are also seen on the right measuring up to 5 mm. There is increased attenuation involving the medullary pyramids bilaterally. There is mild right-sided perinephric and periureteral inflammatory stranding with hydroureteronephrosis secondary to a 5 x 4 x 5 mm obstructing calculus of the proximal right ureter seen at the level of the inferior endplate L3. No additional obstructing calculi identified. Bladder is partially decompressed. Uterus and adnexa are unremarkable. Multiple phleboliths of the pelvis. No aortic aneurysm or pathologic adenopathy. There is no bowel obstruction or focal bowel wall thickening. Colonic diverticulosis without diverticulitis. Surgically absent appendix. Soft tissues are unremarkable. Degenerative changes of the spine and pelvis. Moderate intervertebral disc space narrowing and facet arthrosis at L4-L5. IMPRESSION: 1. Mild right-sided hydroureteronephrosis secondary to a 5 x 4 x 5 mm obstructing calculus of the proximal right ureter at the level of the inferior endplate L3. Multiple additional bilateral nonobstructing renal calculi are noted. 2. Increased attenuation of the medullary pyramids bilaterally suggests medullary nephrocalcinosis. 3. Colonic diverticulosis without diverticulitis. 4. Hepatic steatosis. 5. Mild cardiomegaly with coronary arterial disease and mural fibrofatty changes of the left ventricular apex suggesting sequela of prior myocardial infarction. The above report was generated using voice recognition software. It may contain grammatical, syntax or spelling errors. Electronically signed by: Bobby Ellis M.D. 07/10/2017 5:00 PM Dictated Date/Time: 07/10/2017 4:50 PM
[2017-07-10 17:04] LABS: ALKALINE PHOSPHATASE 125 U/L (45-117); TOTAL PROTEIN 8.6 gm/dl (6.4-8.2)
[2017-07-10] MEDS ORDERED: [UNRECOGNIZED DRUG - OTHER] PO (17:39)
[2017-07-10] MEDS ORDERED: [UNRECOGNIZED DRUG - OTHER] PO (17:39)
[2017-07-10] MEDS ORDERED: NAPR1TAB9 PO (17:39)
[2017-07-10] MEDS ORDERED: OXYC1TAB3 PO (17:47)
[2017-07-10] MEDS ORDERED: ONDA4TAB10 SL (17:47)
--- NOTE | 2017-07-10 18:10 | EMERGENCY ROOM VISIT NOTE ---
History Report prepared by Rupal: Wilma Claros Under the Supervision of: Dr. Andrew Terrazas M.D. First contact with patient: 15:46 Chief Complaint: FLANK PAIN Stated Complaint: PAIN ON RIGHT SIDE OF BODY, VOMITING History of Present Illness The patient is a 62 year old female who presents to the Emergency Room with complaints of intermittent right sided flank pain beginning this morning. The patient describes her pain as sharp. She denies any modifying factors. Presently , she does not have any significant pain. She reports when her pain was present this afternoon it was so severe she vomited. She denies any fever, diarrhea, chest pain, shortness of breath, urinary symptoms, or blood in the urine. The patient has a history of DCIS. She denies any family history of kidney stones. Source of History: patient Onset: this morning Position: other (right flank) Quality: sharp Timing: intermittent Modifying Factors (Relieving): other (none) Associated Symptoms: + vomiting, No fevers, No chest pain, No SOB, No diarrhea, No urinary symptoms Review of Systems See HPI for pertinent positives & negatives. A total of 10 systems reviewed and were otherwise negative. Past Medical & Surgical Medical Problems: (1) Breast cancer (2) Diverticulosis Colon (W/O Ment Of Hemorrhage) (3) Hyperlipidemia Nec/Nos (4) Hypothyroidism Nos Surgical Problems: (1) No significant past surgical history Family History Patient reports no known family medical history. Social History Smoking Status: Never Smoker Alcohol Use: none Marital Status: Occupation Status: employed Current/Historical Medications Scheduled Anastrozole (Arimidex), 1 MG PO HS Ascorbic Acid (Vitamin C Gummies), 2 DOSE PO QAM Cholecalciferol (Vitamin D), 2 TAB PO QAM Flaxseed (Linseed) (Flax Seed Oil), 500 MG PO QAM Levothyroxine Sodium (Levothyroxine Sodium), 1 TAB PO QAM Multiple Vitamins W/ Minerals (Multivitamin Gummies [place]), 2 DOSE PO QAM Naproxen (Aleve), 440 MG PO PRN UD Ondasetron Odt (Zofran Odt), 4 MG SL Q6H [Fora Myces], 2 TABS PO DAILY [Ultra Cindi 1 B], 1 TAB PO DAILY Scheduled PRN Ondansetron Hcl (Zofran), 4 MG PO DIRECTED PRN for Nausea Oxycodone Ir (Roxicodone Ir), 5 MG PO Q4H PRN for Pain Ranitidine (Zantac), 150 MG PO BID PRN for reflux Allergies Coded Allergies: Statins (Verified Allergy, Unknown, MUSCLE PAINS, 07/02/17) Clindamycin (Verified Adverse Reaction, Severe, DIARRHEA, URINARY FREQUENCY, 07/10/17) Physical Exam Vital Signs Date Time Temp Pulse Resp B/P (MAP) Pulse Ox O2 Delivery O2 Flow Rate FiO2 07/10/17 19:28 71 20 129/71 100 07/10/17 18:02 76 14 133/67 99 Room Air 07/10/17 15:37 36.6 86 16 154/83 96 Room Air Physical Exam Constitutional: Vital signs reviewed. Eyes: Pupils are equal round reactive to light. Conjunctiva are noninjected. ENT: Pharynx is clear without erythema or exudate. Mucous membranes are moist. Neck supple without meningeal signs. Respiratory: Clear to auscultation bilaterally. Breath sounds are equal bilaterally. Cardiovascular: Regular rate and rhythm. No rubs or gallops. GI: Soft, nondistended and nontender. Bowel sounds are present. Musculoskeletal: No peripheral edema. No CVA tenderness. Integumentary: No cyanosis. Neurological: The patient is awake and alert. No focal deficits. Psychiatric: Normal affect. Medical Decision & Procedures ER Provider Diagnostic Interpretation: Radiology results as stated below per my review and the radiologist's interpretation: ABD/PELVIS WITHOUT FOR STONE FINDINGS: Mild subsegmental dependent bibasilar atelectasis. No pneumatosis or pneumoperitoneum. Coronary arterial calcifications are noted along with mild cardiomegaly. Mural fibrofatty changes of the left ventricular apex suggest sequela of prior myocardial infarction. Evaluation of the solid abdominal organs is limited without the use of IV contrast. Mild fatty infiltration of the liver. No intrahepatic biliary ductal dilation. Spleen, pancreas, gallbladder and left adrenal gland are unremarkable. Calcification of the medial limb right adrenal gland suggests sequela of prior hemorrhage or infection. There are several nonobstructing renal calculi on the left measuring up to 5 mm. Several nonobstructing renal calculi are also seen on the right measuring up to 5 mm. There is increased attenuation involving the medullary pyramids bilaterally. There is mild right-sided perinephric and periureteral inflammatory stranding with hydroureteronephrosis secondary to a 5 x 4 x 5 mm obstructing calculus of the proximal right ureter seen at the level of the inferior endplate L3. No additional obstructing calculi identified. Bladder is partially decompressed. Uterus and adnexa are unremarkable. Multiple phleboliths of the pelvis. No aortic aneurysm or pathologic adenopathy. There is no bowel obstruction or focal bowel wall thickening. Colonic diverticulosis without diverticulitis. Surgically absent appendix. Soft tissues are unremarkable. Degenerative changes of the spine and pelvis. Moderate intervertebral disc space narrowing and facet arthrosis at L4-L5. IMPRESSION: 1. Mild right-sided hydroureteronephrosis secondary to a 5 x 4 x 5 mm obstructing calculus of the proximal right ureter at the level of the inferior endplate L3. Multiple additional bilateral nonobstructing renal calculi are noted. 2. Increased attenuation of the medullary pyramids bilaterally suggests medullary nephrocalcinosis. 3. Colonic diverticulosis without diverticulitis. 4. Hepatic steatosis. 5. Mild cardiomegaly with coronary arterial disease and mural fibrofatty changes of the left ventricular apex suggesting sequela of prior myocardial infarction. The above report was generated using voice recognition software. It may contain grammatical, syntax or spelling errors. Electronically signed by: Bobby Ellis M.D. Laboratory Results 07/10/17 16:10 Red Blood Count 3.88, Mean Corpuscular Volume 91.8, Mean Corpuscular Hemoglobin 31.4, Mean Corpuscular Hemoglobin Concent 34.3, Mean Platelet Volume 11.4, Neutrophils (%) (Auto) 84.8, Lymphocytes (%) (Auto) 8.9, Monocytes (%) (Auto) 5.4, Eosinophils (%) (Auto) 0.2, Basophils (%) (Auto) 0.4, Neutrophils # (Auto) 9.69, Lymphocytes # (Auto) 1.01, Monocytes # (Auto) 0.61, Eosinophils # (Auto) 0.02, Basophils # (Auto) 0.04 07/10/17 16:10 Test 07/10/17 16:10 White Blood Count 11.40 K/uL (4.8-10.8) Red Blood Count 3.88 M/uL (4.2-5.4) Hemoglobin 12.2 g/dL (12.0-16.0) Hematocrit 35.6 % (37-47) Mean Corpuscular Volume 91.8 fL (80-100) Mean Corpuscular Hemoglobin 31.4 pg (25-34) Mean Corpuscular Hemoglobin Concent 34.3 g/dl (32-36) Platelet Count 276 K/uL (130-400) Mean Platelet Volume 11.4 fL (7.4-10.4) Neutrophils (%) (Auto) 84.8 % Lymphocytes (%) (Auto) 8.9 % Monocytes (%) (Auto) 5.4 % Eosinophils (%) (Auto) 0.2 % Basophils (%) (Auto) 0.4 % Neutrophils # (Auto) 9.69 K/uL (1.4-6.5) Lymphocytes # (Auto) 1.01 K/uL (1.2-3.4) Monocytes # (Auto) 0.61 K/uL (0.11-0.59) Eosinophils # (Auto) 0.02 K/uL (0-0.5) Basophils # (Auto) 0.04 K/uL (0-0.2) RDW Standard Deviation 43.9 fL (36.4-46.3) RDW Coefficient of Variation 13.2 % (11.5-14.5) Immature Granulocyte % (Auto) 0.3 % Immature Granulocyte # (Auto) 0.03 K/uL (0.00-0.02) Urine Color YELLOW Urine Appearance CLOUDY (CLEAR) Urine pH 5.5 (4.5-7.5) Urine Specific [place] 1.025 (1.000-1.030) Urine Protein TRACE (NEG) Urine Glucose (UA) NEG (NEG) Urine Ketones 2+ (NEG) Urine Occult Blood 3+ (NEG) Urine Nitrite NEG (NEG) Urine Bilirubin NEG (NEG) Urine Urobilinogen NEG (NEG) Urine Leukocyte Esterase NEG (NEG) Urine RBC >30 /hpf (0-4) Urine WBC 1-5 /hpf (0-5) Urine Epithelial Cells 10-20 /lpf (0-5) Urine Amorphous Sediment PRESENT (NONE PRSENT) Urine Bacteria NEG (NEG) Anion Gap 7.0 mmol/L (3-11) Est Creatinine Clear Calc Drug Dose 46.7 ml/min Estimated GFR () 56.7 Estimated GFR (Non- 48.9 BUN/Creatinine Ratio 18.6 (10-20) Calcium Level 9.7 mg/dl (8.5-10.1) Total Bilirubin 0.5 mg/dl (0.2-1) Direct Bilirubin < 0.1 mg/dl (0-0.2) Aspartate Amino Transf (AST/SGOT) 33 U/L (15-37) Alanine Aminotransferase (ALT/SGPT) 45 U/L (12-78) Alkaline Phosphatase 125 U/L (45-117) Total Protein 8.6 gm/dl (6.4-8.2) Albumin 4.6 gm/dl (3.4-5.0) Lipase 187 U/L (73-393) Laboratory results as reviewed by me. Medications Administered Medications (Trade) Dose Ordered Sig/Lui Route Start Time Stop Time Status Last Admin Dose Admin Ondansetron HCl (Zofran Inj) 4 mg NOW STAT IV 07/10/17 15:53 07/10/17 15:54 DC 07/10/17 16:18 4 MG Sodium Chloride 500 ml @ 999 mls/hr Q31M STAT IV 07/10/17 15:53 07/10/17 16:23 DC 07/10/17 16:20 999 MLS/HR Ketorolac Tromethamine (Toradol Inj) 10 mg NOW STAT IV 07/10/17 15:53 07/10/17 15:54 DC 07/10/17 16:18 10 MG Oxycodone HCl (Roxicodone Immediate Rel 5MG Home Pack) 1 homepack UD ONCE PO 07/10/17 18:15 07/10/17 18:16 DC 07/10/17 19:27 1 HOMEPACK Ondansetron HCl (ZOFRAN ODT 4MG Home Pack) 1 homepack STK-MED ONCE .ROUTE 07/10/17 19:21 07/10/17 19:22 DC 07/10/17 19:28 1 HOMEPACK ED Course 1547: The patient was evaluated in room C7. A complete history and physical exam was performed. 1553: Ordered Toradol Inj 10 mg IV, Sodium Chloride 500 ml @ 999 mls/hr IV, Zofran Inj 4 mg IV. 1712: On reassessment, the patient is not having any pain besides a mild ache. I reviewed her test results with her. The patient has an appointment with Dr. Burgos-Urology on the . I asked case management to call on Thursday to try to get the patients appointment moved up. 1754: Upon reevaluation, the patient appeared to have improvement of her symptoms. I discussed rhonda's findings with her. She verbalized agreement of the treatment plan. She was discharged home. Medical Decision This is a 62-year-old female presents with flank pain. Differential diagnosis includes renal colic, hydronephrosis, strain, duodenitis, pancreatitis, cardiac. I did perform a limited focused review of portions of the patient's old chart on the electronic medical record. The patient has had no recent pertinent visits to this hospital. I did evaluate the patient as noted above. IV access was established. I did treat the patient with normal saline IV. She was also given Toradol and Zofran IV. I did order and review the patient's blood work as noted in the electronic medical record. I did order a CT of the abdomen and pelvis. I did review the images myself as well as the radiology report as described above. The patient has a 5 mm proximal ureteral stone with multiple intrarenal calculi. She also had some incidental findings as discussed above. I did discuss the test results with her. I did discuss the incidental findings as well. She has an appointment to see Dr. Burgos on the . I did ask the comp field case manager see if they were able to move that appointment up. She was given a prescription for Zofran and oxycodone and given precautions regarding this medication. A urinalysis was ordered. There was no evidence of infection. The patient was given return instructions and discharged. [place] Drug Monitoring Program Search Results: patient reviewed within database Drug Monitoring Findings: No matching patients. Medication Reconcilliation Current Medication List: was personally reviewed by me Blood Pressure Screening Patient's blood pressure: Elevated blood pressure Blood pressure disposition: Referred to PCP Impression Primary Impression: Renal colic Additional Impression: Obstructive uropathy Scribe Attestation The scribe's documentation has been prepared under my direct and personally reviewed by me in its entirety. I confirm that the note above accurately reflects all work, treatment, procedures, and medical decision making performed by me. Departure Information Dispostion Home / Self-Care Prescriptions Ondasetron Odt (ZOFRAN ODT) 4 Mg Tab 4 MG SL Q6H for Nausea, #6 TAB Prov: Andrew Terrazas M.D. 07/10/17 Oxycodone Ir (Roxicodone Ir) 5 Mg Tab 5 MG PO Q4H Y for Pain, #20 TAB Prov: Andrew Terrazas M.D. 07/10/17 Referrals Malvin Bliss M.D. (PCP) Forms HOME CARE DOCUMENTATION FORM, IMPORTANT VISIT INFORMATION Patient Instructions Kidney Stones Expectant Therapy, My [facility] Additional Instructions You have been examined and treated today on an emergency basis only. This is not a substitute for, or an effort to provide, complete comprehensive medical care. It is impossible to recognize and treat all injuries or illnesses in a single emergency department visit. It is therefore important that you follow up closely with Dr. Burgos of urology per your appointment. The comp field case manager will try to call on Thursday to move your appointment up. Return for worsening symptoms or if you develop fever, vomiting, or any other concerning symptoms. Problem Qualifiers
[2017-07-10] MEDS ORDERED: OXYCODONE IR HOME PACK PO ONE (18:15)
[2017-07-10] MEDS ORDERED: ONDANSETRON HOME PACK 4MG OD TAB ONE (19:21)
[2017-07-10 19:28] VITALS: BP 129/71; PULSE 71; O2SAT 100
== END 2017-07-10 19:28 | disposition home or self-care (01) ==
LOC: C.EDB 15:32 → C.EDC 19:28
DX: N23 Unspecified renal colic (principal); N13.9 Obstructive and reflux uropathy, unspecified; E78.5 Hyperlipidemia, unspecified; E03.9 Hypothyroidism, unspecified; K57.90 Diverticulosis of intestine, part unspecified, without perforation or abscess without bleeding; Z88.8 Allergy status to other drugs, medicaments and biological substances

== ENCOUNTER → 2017-07-17 | Outpatient (CLI) | payer OTHER ==
[~2017-07-17] MED LIST changes: -MISCCAP80 PO; +NAPR1TAB9 PO; +ONDA4TAB10 SL; +OXYC1TAB3 PO; +[UNRECOGNIZED DRUG - OTHER] PO; +[UNRECOGNIZED DRUG - OTHER] PO
== END | disposition home or self-care (01) ==
LOC: C.LABSPEC 15:00
PROVIDERS: ATTEND Urology
DX: N20.0 Calculus of kidney (principal)

== ENCOUNTER → 2017-07-17 | Outpatient (CLI) | payer OTHER ==
--- NOTE | 2017-07-17 11:47 | DIAGNOSTIC IMAGING REPORT ---
CHEST 2 VIEWS ROUTINE CLINICAL HISTORY: N20.0 [id number] preoperative evaluation COMPARISON STUDY: No previous studies for comparison. FINDINGS: The bones soft tissues and hemidiaphragms are normal. The cardiomediastinal silhouette is normal. The lungs are clear. The pulmonary vasculature is normal. IMPRESSION: Negative chest. The above report was generated using voice recognition software. It may contain grammatical, syntax or spelling errors. Electronically signed by: Luis Armando Oakes M.D. 07/17/2017 11:45 AM Dictated Date/Time: 07/17/2017 11:44 AM
--- NOTE | 2017-07-17 11:50 | DIAGNOSTIC IMAGING REPORT ---
KUB CLINICAL HISTORY: N20.0 [id number] COMPARISON STUDY: CT 07/10/2017 FINDINGS: There is a right ureteral calculus immediately inferior to the right transverse process of L3. This is unchanged compared to the prior CT study. Bilateral nephrocalcinosis is noted. This is similar. There is nonobstructive bowel pattern. Multiple pelvic vascular calcifications. IMPRESSION: 1. 3 mm right ureteral calculus inferior to the right transverse process of L3. 2. This is unchanged from the prior CT exam. 3. Stable bilateral nephrocalcinosis. The above report was generated using voice recognition software. It may contain grammatical, syntax or spelling errors. Electronically signed by: Luis Armando Oakes M.D. 07/17/2017 11:48 AM Dictated Date/Time: 07/17/2017 11:46 AM
== END | disposition home or self-care (01) ==
LOC: C.CPL 11:18
PROVIDERS: ATTEND Urology
DX: N20.0 Calculus of kidney (principal)

== ENCOUNTER → 2017-07-23 | Outpatient (CLI) | payer OTHER ==
[~2017-07-23] MED LIST changes: -ONDA4TAB10 SL; -OXYC1TAB3 PO; +TAMS0.4C38 PO; +TRAM-10 PO
--- NOTE | 2017-07-23 18:52 | DIAGNOSTIC IMAGING REPORT ---
KUB CLINICAL HISTORY: Nephrolithiasis. FINDINGS: An AP supine abdominal radiograph is compared to study dated 07/17/2017 and correlated with abdominal CT dated 07/10/2017. There is a nonobstructed abdominal bowel gas pattern. A 4 mm calculus in the right proximal ureter is unchanged in position and projects below the right transverse process of L3. Additional small nonobstructing calculi project over both kidneys. There are numerous phleboliths in the pelvis. The bony structures appear intact. IMPRESSION: 1. Unchanged position of a 4 mm obstructing calculus in the right proximal ureter as compared to 07/17/2017. 2. Additional bilateral nonobstructing renal calculi are also unchanged. Electronically signed by: Casey Quijano M.D. 07/23/2017 6:51 PM Dictated Date/Time: 07/23/2017 6:49 PM
== END | disposition home or self-care (01) ==
LOC: C.RAD 16:56
PROVIDERS: ATTEND Urology
DX: N20.2 Calculus of kidney with calculus of ureter (principal)

== ENCOUNTER → 2017-07-24 | Day surgery (SDC) | payer OTHER ==
[2017-07-21 07:39] VITALS: Ht 157.5 cm; Wt 76.8 kg
[~2017-07-24] VITALS: Ht 157.5 cm; Wt 76.8 kg
[~2017-07-24] MED LIST changes: +ATROPINE SULFATE 0.1 MG/ML 5ML SYR IV PRN; +CIPROFLOXACIN 400MG / D5W IV SCH; +DEXAMETHASONE SOD INJ 4 MG/ML VIAL ONE; +EpHEDrine SULFATE INJ 50 MG/ML AMP IV PRN; +FENTANYL CITRATE INJ 50 MCG/1 ML 2 ML VIAL ONE; +FLUMAZENIL 0.1 MG/1 ML 10 ML VIAL IV ONE; +LIDOCAINE HCL 2% 2 ML VIAL (20MG/ML) ONE; +ONDANSETRON INJ 2 MG/ML 2 ML VIAL IV PRN; +ONDANSETRON INJ 2 MG/ML 2 ML VIAL ONE; +OXYCODONE/ACETAMINOPHEN 5-325 TAB ONE; +OXYCODONE/ACETAMINOPHEN 5-325 TAB PO PRN; +PROPOFOL IV EMULSION 10 MG/ML 20 ML VIAL ONE; +SODIUM CHLORIDE 0.9% 1000ML 1,000 ML IV SCH
[2017-07-24] MEDS: LACTATED RINGER'S 1000ML 1,000 ML IV SCH ×2 (09:53→12:31)
--- NOTE | 2017-07-24 11:02 | History & Physical Bridge Note ---
H&P Re-Evaluation Bridge Note: I have examined the patient, reviewed the History & Physical and in the interval since the performance of the History & Physical I have noted the following changes of clinical significance: No changes noted
--- NOTE | 2017-07-24 12:00 | Discharge Instructions-SurgCtr ---
Discharge Instructions Date of Service July 24, 2017. Visit Reason for Visit: STONE Discharge Discharge Diagnosis / Problem: stone Discharge Goals Goal(s): Decrease discomfort, Improve function, Increase independence, Improve disease control Activity Recommendations Activity Limitations: resume your previous activity Lifting Limitations: none Exercise/Sports Limitations: none May Resume Sexual Activity: when tolerated Shower/Bathe: no limitations Driving or Machine Use: resume 1 day after discharge Anesthesia . Post Anesthesia Instructions: If you have had General Anesthesia or IV Sedation: * Do not drive today. * Resume driving when surgeon permits. * Do not make important decisions or sign legal documents today. * Call surgeon for: 1. Temperature elevations greater than 101 degrees F. 2. Uncontrollable pain. 3. Excessive bleeding. 4. Persistent nausea and vomiting. 5. Medication intolerance (nausea, vomiting or rash). * For nausea and vomiting use only clear liquids such as: tea, soda, bouillon until nausea subsides, then gradually increase diet as tolerated. * If you have any concerns or questions, call your surgeon's office. If physician is unavailable and it is an emergency, call 911 or go to the nearest emergency room. . Diet Recommendations Home Diet: no limitations, resume previous diet Procedures Procedures Performed: Right Extracorporeal Shock Wave Lithotripsy, Ureteral Pending Studies Studies pending at discharge: no Medical Emergencies . Who to Call and When: Medical Emergencies: If at any time you feel your situation is an emergency, please call 911 immediately. . Non-Emergent Contact Non-Emergency issues call your: Urologist Call Non-Emergent contact if: you have a fever, temperature is above 101.5, your pain is not controlled, your pain is worsening . . "Provider Documentation" section prepared by Artie Graves. . [place] Drug Monitoring Program Search Results: patient reviewed within database, no issues identified
[2017-07-24] MEDS: FENTANYL CITRATE INJ 50 MCG/1 ML 2 ML VIAL IV PRN ×3 (12:18→12:38)
--- NOTE | 2017-07-24 12:39 | [facility] Operative Report ---
Operative Report Operative Date July 24, 2017. Pre-Operative Diagnosis Right ureteral calculus Post-Operative Diagnosis same as preop Procedure(s) Performed Right Extracorporeal Shock Wave Lithotripsy, Ureteral Surgeon Dr. Adamson [employer] Engineer Surgeon(s) none Estimated Blood Loss 0ml Findings Numerous calculi -target of the ureteral stone on the right Specimens none Drains None Anesthesia Type General Complication(s) none Disposition yes Recovery Room / PACU Indications Symptomatic right ureteral stone Description of Procedure The patient was identified in the preoperative holding area, appropriate informed consent was reviewed and completed and the patient was transported to the operating suite. Upon arrival appropriate preoperative antibiotics were administered and general anesthesia induced. The patient was placed in supine position and the stone was localized under fluoroscopy. A total of 3000 shocks were delivered to the stone. There appeared to be good fragmentation of the stone. Details of this procedure can be found on the [facility] information sheet. At the conclusion of the case the patient was extubated and taken to the PACU in stable condition. There were no complications. I attest to the content of the Intraoperative Record and any orders documented therein. Any exceptions are noted below.
[2017-07-24 12:48] VITALS: TEMP 36.8
[2017-07-24 13:10] VITALS: BP 116/72; PULSE 67; O2SAT 94
--- NOTE | 2017-07-24 13:16 | Anesthesia Progress Nt - [facility] ---
Anesthesia Post Op Note Date & Time July 24, 2017 at 13:16 Vital Signs Pain Intensity: 4.0 Vital Signs Past 12 Hours Date Time Temp Pulse Resp B/P (MAP) Pulse Ox O2 Delivery O2 Flow Rate FiO2 07/24/17 13:10 67 14 116/72 (87) 94 Room Air 07/24/17 12:48 36.8 67 14 125/86 (99) 94 Room Air 07/24/17 12:46 36.4 07/24/17 12:41 66 14 07/24/17 12:41 67 14 127/65 (77) 97 07/24/17 12:37 Room Air 07/24/17 12:36 66 16 124/70 (85) 100 07/24/17 12:36 67 16 07/24/17 12:31 61 15 07/24/17 12:31 61 15 116/57 (66) 99 07/24/17 12:26 63 15 126/70 (81) 100 07/24/17 12:26 63 15 07/24/17 12:21 66 15 07/24/17 12:21 66 15 126/72 (80) 100 07/24/17 12:16 68 18 130/69 (84) 100 07/24/17 12:16 69 18 07/24/17 12:12 116/72 (84) 07/24/17 12:11 69 14 99 07/24/17 12:11 70 14 07/24/17 12:09 130/80 (105) 07/24/17 12:06 36.1 70 16 130/80 98 Diffusion Mask 6 07/24/17 09:31 36.2 84 20 122/83 (96) 94 Room Air Notes Mental Status: alert / awake / arousable, participated in evaluation Pt Amnestic to Procedure: Yes Nausea / Vomiting: adequately controlled Pain: adequately controlled Airway Patency, RR, SpO2: stable & adequate BP & HR: stable & adequate Hydration State: stable & adequate Anesthetic Complications: no major complications apparent
== END | disposition home or self-care (01) ==
LOC: X.SURG 09:18
PROVIDERS: ATTEND Urology
DX: N20.1 Calculus of ureter (principal); I25.2 Old myocardial infarction; E78.5 Hyperlipidemia, unspecified; E03.9 Hypothyroidism, unspecified; E55.9 Vitamin D deficiency, unspecified; D64.9 Anemia, unspecified; K21.9 Gastro-esophageal reflux disease without esophagitis; Z86.000 Personal history of in-situ neoplasm of breast; Z82.49 Family history of ischemic heart disease and other diseases of the circulatory system; Z83.3 Family history of diabetes mellitus; Z82.3 Family history of stroke

== ENCOUNTER → 2017-07-30 | Outpatient (CLI) | payer OTHER ==
[~2017-07-30] MED LIST changes: -ATROPINE SULFATE 0.1 MG/ML 5ML SYR IV PRN; -CIPROFLOXACIN 400MG / D5W IV SCH; -DEXAMETHASONE SOD INJ 4 MG/ML VIAL ONE; -EpHEDrine SULFATE INJ 50 MG/ML AMP IV PRN; -FENTANYL CITRATE INJ 50 MCG/1 ML 2 ML VIAL ONE; -FLUMAZENIL 0.1 MG/1 ML 10 ML VIAL IV ONE; -LIDOCAINE HCL 2% 2 ML VIAL (20MG/ML) ONE; -ONDANSETRON INJ 2 MG/ML 2 ML VIAL IV PRN; -ONDANSETRON INJ 2 MG/ML 2 ML VIAL ONE; -OXYCODONE/ACETAMINOPHEN 5-325 TAB ONE; -OXYCODONE/ACETAMINOPHEN 5-325 TAB PO PRN; -PROPOFOL IV EMULSION 10 MG/ML 20 ML VIAL ONE; -SODIUM CHLORIDE 0.9% 1000ML 1,000 ML IV SCH
[2017-07-30 13:23] LABS: BASO % 0.9 %; BASO ABS # 0.05 K/uL (0-0.2); EOS % 2.8 %; EOS ABS # 0.15 K/uL (0-0.5); HEMATOCRIT 35.7 % (37-47); HEMOGLOBIN 11.8 g/dL (12.0-16.0); IG# 0.01 K/uL (0.00-0.02); LYMPH % 26.3 %; MEAN CORPUSCULAR HEMOGLOBIN 30.7 pg (25-34); MEAN CORPUSCULAR HGB CONC 33.1 g/dl (32-36); MEAN PLATELET VOLUME 11.7 fL (7.4-10.4); MONO ABS # 0.53 K/uL (0.11-0.59); NEUT % 59.8 %; NEUT ABS # 3.18 K/uL (1.4-6.5); PLATELET COUNT 252 K/uL (130-400); RED CELL DISTRIBUTION WIDTH CV 13.4 % (11.5-14.5); RED CELL DISTRIBUTION WIDTH SD 45.4 fL (36.4-46.3); WHITE BLOOD COUNT 5.32 K/uL (4.8-10.8)
[2017-07-30 13:52] LABS: ALBUMIN 4.1 gm/dl (3.4-5.0); BLOOD UREA NITROGEN 15 mg/dl (7-18); CARBON DIOXIDE 27 mmol/L (21-32); GLUCOSE 80 mg/dl (70-99); PHOSPHORUS 3.1 mg/dl (2.5-4.9); POTASSIUM 3.7 mmol/L (3.5-5.1); SODIUM 139 mmol/L (136-145); URIC ACID 5.1 mg/dl (2.6-7.2)
== END | disposition home or self-care (01) ==
LOC: C.LAB1850 11:47
PROVIDERS: ATTEND Internal Medicine Nephrology
DX: D64.9 Anemia, unspecified (principal); N20.0 Calculus of kidney; E55.9 Vitamin D deficiency, unspecified

== ENCOUNTER → 2017-10-20 | Outpatient (CLI) | payer OTHER ==
[~2017-10-20] MED LIST changes: -ANAS1TAB19 PO; +ANAS1TAB59 PO; +ASPI81TA28 PO; +EZET10TA63 PO; +SACC250C11 PO; +[UNRECOGNIZED DRUG - OTHER] PO
[2017-10-20 13:02] VITALS: BP 118/81; PULSE 72; TEMP 36.5; O2SAT 95
--- NOTE | 2017-10-20 14:59 | Radiation Oncology Follow-Up ---
Radiation Oncology Follow-Up Date of Visit Oct 20, 2017. Reason For Visit Annual follow-up Radiation Completion Date finished 03-14-2016 Diagnosis (1) Breast cancer Onset Date: 12/19/2015 Stage: 0 Permanent Comment: STAGING: Right breast, DCIS, high grade, comedonecrosis present, ER positive, IN negative, pTis, stage 0 TREATMENT: 1. Steriotactic Biopsy - 12/19/2015 2. Lumpectomy - 01/15/2016 - Dr. Bc Hernandez 3. Status post completion of radiation therapy 03/14/2016 received 5130 cGy utilizing hypo-fractionation Last Edited By: Malinda Miller on Mar 24, 2016 14:59 History of Present Illness Ms. Frias is a postmenopausal female who presented with an abnormal screening mammogram on 11/27/2015 which showed a cluster of calcifications in the right breast. She underwent a unilateral right diagnostic mammogram on 12/19/2015 which revealed a cluster of microcalcifications in the right breast from the 11: 00 to 11:30 position measuring 2 cm in diameter. She then underwent a stereotactic guided biopsy of the right breast on 12/19/2015 which revealed atypical ductal hyperplasia suspicious for ductal carcinoma in situ. The patient was seen in consultation by Dr. Bc Hernandez who discussed treatment options including mastectomy and breast conserving therapy including a lumpectomy and adjuvant radiation therapy. The patient elected for a lumpectomy and underwent the procedure 01/15/[address] Bc Hernandez. 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 The margins were negative however there was a close 1 mm margin. The tumor was estrogen receptor positive and progesterone receptor negative. The patient was seen by Dr. Gerry Bell for medical oncology who recommended anti-hormonal therapy. We are now seeing the patient in consultation to discuss the role of adjuvant radiation therapy. Overall, the patient is doing relatively well. She is feeling well from her surgery. She has no other complaints. Final decision following CT simulation was to treat with a hypo-fractionation. This was completed March 2016. She received 5130 cGy Interim History She has been doing well over the past year. She is noted no changes to her breast. She has occasional mild discomfort. This is less over time. She is noted no masses and no change of the axilla. She has had no swelling of her arm. She is up-to-date on mammography. She is on anastrozole. She denies side effects. She denies hot flashes. She had been on tamoxifen and that was discontinued due to elevated liver function studies. She did undergo bilateral stereotactic biopsy December 24, 2016. Path report was benign. Case [id number]. Allergies Coded Allergies: Clindamycin (Verified Adverse Reaction, Severe, DIARRHEA, URINARY FREQUENCY, 07/24/17) Statins (Verified Adverse Reaction, Unknown, MUSCLE PAINS, 07/24/17) Home Medications Scheduled Anastrozole (Arimidex), 1 MG PO HS Ascorbic Acid (Vitamin C Gummies), 2 DOSE PO QAM Aspirin (Aspirin Ec), 81 MG PO 2XWK Cholecalciferol (Vitamin D), 2 TAB PO QAM Ezetimibe (Zetia), 10 MG PO DAILY Levothyroxine Sodium (Levothyroxine Sodium), 1 TAB PO QAM Multiple Vitamins W/ Minerals (Multivitamin Gummies Wome), 2 DOSE PO QAM Naproxen (Aleve), 440 MG PO PRN UD Saccharomyces Boulardii (Probiotic), 1 TAB PO DAILY [black oil seed oil], 1,000 TABS PO DAILYBB Scheduled PRN Ondansetron Hcl (Zofran), 4 MG PO Q6 PRN for Nausea Ranitidine (Zantac), 150 MG PO BID PRN for reflux Tramadol (Ultram), 50 MG PO Q8H PRN for Pain Review of Systems Gastrointestinal: Symptoms: WNL Oral: Symptoms: No Problems Respiratory: Symptoms: WNL Urinary: Symptoms: Nocturia Comments: nocturia times 1 Skin: Symptoms: No Problems Breast: Right Upper Arm Measurement: 34.5 Right Mid Arm Measurement: 28.0 Right Wrist Measurement: 17.1 Left Upper Arm Measurement: 33.5 Left Mid Arm Measurement: 26.0 Left Wrist Measurement: 16.6 Arm Dominence: Right Patient Cosmetic Evaluation: Excellent Staff Cosmetic Evalaluation: Excellent Physical Exam Vital Signs Date Time Temp Pulse Resp B/P (MAP) Pulse Ox O2 Delivery O2 Flow Rate FiO2 10/20/17 13:02 36.5 72 16 118/81 95 Fatigue: None General Appearance: no apparent distress Eyes: normal inspection, EOMI ENT: normal ENT inspection, hearing grossly normal Neck: no adenopathy, thyroid normal Respiratory/Chest: lungs clear, no respiratory distress, no accessory muscle use Breast: Breast examination reveals well-healed incision of the right breast. There are no masses or tenderness and no axillary adenopathy. She has no skin retractions or nipple changes. Using the [place] score cosmesis she has an excellent outcome. The left breast showed no masses or tenderness and no axillary adenopathy. Pain Management Patient Reports Pain: No Side: Bilateral Patient Preferred Pain Scale: 0 - 10 Initial Pain Intensity: 0.0 Pain Management Plan She denies pain therefore requires no pain management. Laboratory Laboratory Results: not applicable Pathology Pathology Results: were reviewed Pathology Comments Reviewed in the interim history. Imaging Imaging Studies: were reviewed, and pertinent findings noted below Imaging Comments Patient: ALEX FRIAS [facility] Rec: [id number] Address1: [address] [place] [address] [id number] Date: 1955 Sex: F Ref Phy: Gerry Bell D.O. Att Phy: Malinda Miller PA-C Marika Phy: Malvin Bliss M.D. Inter Phy: Melody Ho MD [facility] Zip: [place] [address] SC: [id number] Report #: [id number] Demonstrator Knitting: MARIVEL Diagnosis: 6 MOS F/U RIGHT Service Date: 06/24/17 MNE: [id number] Ordering Dr: Malinda Miller PA-C CC: Malinda Miller PA-C CONF: DICTATED BY: Melody Ho MD MAMMOGRAPHY REPORT UNILATERAL RIGHT DIGITAL DIAGNOSTIC MAMMOGRAM TOMOSYNTHESIS WITH CAD: 06/24/2017 CLINICAL HISTORY: History of right breast cancer status post lumpectomy January 2016. Also with recent stereotactic biopsy of right breast calcifications December 2016 which yielded benign pathology. The patient reports no new lumps or other complaints. TECHNIQUE: Breast tomosynthesis in addition to standard 2D mammography was performed. Current study was also evaluated with a Computer Aided Detection (CAD ) system. Right CC and MLO 2D and tomosynthesis images and spot magnification right CC and ML views were obtained. COMPARISON: Comparison is made to exams dated: 12/24/2016 stereotactic biopsy, 12/24/2016 mammogram, 12/24/2016 stereotactic biopsy, 12/16/2016 mammogram, 06/16 mammogram, and 01/15/2016 specimen - [facility]. BREAST COMPOSITION: There are scattered areas of fibroglandular density in the right breast. FINDINGS: There are stable postsurgical changes in the right upper outer quadrant from prior lumpectomy, including stable density, architectural distortion, and surgical clips at the lumpectomy bed. A biopsy marker clip is seen within the right upper outer quadrant superior to the lumpectomy bed at the site of recent benign stereotactic biopsy. A few residual punctate calcifications at the biopsy site are stable. There are no suspicious masses, calcifications, or areas of architectural distortion noted in either breast. IMPRESSION: ACR-BI-RADS CATEGORY 3: PROBABLY BENIGN Stable postsurgical and postbiopsy changes in the right breast,, without mammographic evidence of malignancy in the right breast. Recommend bilateral diagnostic tomosynthesis mammograms in 6 months to reevaluate right breast posttreatment changes and for routine mammography of the left breast. The patient has been verbally notified of the results. Approximately 10% of breast cancers are not detected with mammography. A negative mammographic report should not delay biopsy if a clinically suggestive mass is present. Melody Ho M.D. ah/:06/24/2017 08:47:29 Campground Attendant: Selene Chiu, [facility] letter sent: Personal History 3 BI-RADS Code: ACR-BI-RADS Category 3: Probably Benign Dictated by: Melody Ho MD Signed by: Melody Ho MD Assessment & Plan Plan: She was seen and examined by Dr. Agosto. She continues on anastrozole. Continue regular follow-up with medical oncology and her primary care physician. She is scheduled for bilateral mammogram in December. We asked her to return to our office in 1 year. She may call if she has any questions or concerns in the interim. Assessment & Plan (Attending) I agree with note created by Malinda Miller PA-C. I reviewed the patient's chart and information with her. I have examined and evaluated the patient. I reviewed relevant clinical information and answered the patient's and/or family' s questions. DIRECTIONAL BORE OPERATOR Total Time In Follow-Up I spent 20 minutes speaking to the patient in performing examination. I spent 15 minutes reviewing information and completing this note. AK Total Time (Attending) In Follow-Up I spent 15 minutes examining and counseling the patient. DIRECTIONAL BORE OPERATOR Copy To Malvin Bliss M.D.; Gerry Bell D.O.
== END | disposition home or self-care (01) ==
LOC: C.ONC 12:37
PROVIDERS: ATTEND Physician Assistant Medical
DX: Z08 Encounter for follow-up examination after completed treatment for malignant neoplasm (principal); Z92.3 Personal history of irradiation; Z86.000 Personal history of in-situ neoplasm of breast

== ENCOUNTER → 2017-10-26 | Outpatient (CLI) | payer OTHER ==
[~2017-10-26] MED LIST changes: -FLAX1CAP11 PO; -TAMS0.4C38 PO; -[UNRECOGNIZED DRUG - OTHER] PO; -[UNRECOGNIZED DRUG - OTHER] PO
[2017-10-26 13:39] LABS: ALBUMIN 4.1 gm/dl (3.4-5.0); ALKALINE PHOSPHATASE 115 U/L (45-117); ALT/SGPT 44 U/L (12-78); AST/SGOT 22 U/L (15-37); BLOOD UREA NITROGEN 15 mg/dl (7-18); CALCIUM 9.4 mg/dl (8.5-10.1); CARBON DIOXIDE 25 mmol/L (21-32); CHOLESTEROL 195 mg/dl (0-200); GLUCOSE 89 mg/dl (70-99); LDL CHOLESTEROL CALCULATED 116 mg/dl; POTASSIUM 4.2 mmol/L (3.5-5.1); SODIUM 138 mmol/L (136-145); TOTAL PROTEIN 7.7 gm/dl (6.4-8.2)
== END | disposition home or self-care (01) ==
LOC: C.LABBFT 08:08
PROVIDERS: ATTEND Internal Medicine
DX: K76.0 Fatty (change of) liver, not elsewhere classified (principal); E03.9 Hypothyroidism, unspecified; E55.9 Vitamin D deficiency, unspecified; I25.10 Atherosclerotic heart disease of native coronary artery without angina pectoris

== ENCOUNTER 2024-01-08 09:39 | Observation (INO) ==
--- NOTE | 2023-12-01 15:22 | PAT Medication Instructions ---
Medication Instructions Date of Service December 01, 2023 Home Medications Medication Instructions Recorded ezetimibe 10 mg tablet 10 mg PO HS #90 tabs 03/30/23 famotidine 20 mg tablet 20 mg PO BID #180 tabs 09/01/23 aspirin 81 mg tablet,delayed release 81 mg PO QPM multivitamin 1 tab PO QAM cholecalciferol (vitamin D3) 50 mcg (2,000 unit) tablet (Vitamin D3) 3,000 units PO QAM Black Seed Oil Cold Press 2 cap PO QAM ezetimibe 10 mg tablet 10 mg PO HS famotidine 20 mg tablet 20 mg PO BID ascorbic acid 1,000 rg-qitylcuqzqsr-rfgxvfkx powder effervescent pack (Emergen- C) 1 ea PO UD PRN fall/winter per choice calcium 500 mg tablet 500 mg PO QAM fexofenadine 180 mg tablet 180 mg PO HS levothyroxine 50 mcg tablet 50 mcg PO QAM pantoprazole 40 mg tablet,delayed release 40 mg PO UD PRN gerd ASK your prescriber and surgeon aspirin 81 mg tablet,delayed release 81 mg PO QPM STOP taking 2 weeks before surgery (or as soon as possible if surgery is within 2 weeks) Black Seed Oil Cold Press 2 cap PO QAM DO NOT take the morning of surgery multivitamin 1 tab PO QAM cholecalciferol (vitamin D3) 50 mcg (2,000 unit) tablet (Vitamin D3) 3,000 units PO QAM ascorbic acid 1,000 po-qbhwbnyjezyy-pwcswuab powder effervescent pack (Emergen- C) 1 ea PO UD PRN fall/winter per choice calcium 500 mg tablet 500 mg PO QAM Take morning of surgery With a small sip of water, OTHERWISE NOTHING TO EAT OR DRINK AFTER MIDNIGHT: famotidine 20 mg tablet 20 mg PO BID levothyroxine 50 mcg tablet 50 mcg PO QAM pantoprazole 40 mg tablet,delayed release 40 mg PO UD PRN gerd (if needed) Take evening before surgery ezetimibe 10 mg tablet 10 mg PO HS famotidine 20 mg tablet 20 mg PO BID ascorbic acid 1,000 ea-lsbmslhxkhnn-rkdyjyyj powder effervescent pack (Emergen- C) 1 ea PO UD PRN fall/winter per choice (if needed) fexofenadine 180 mg tablet 180 mg PO HS pantoprazole 40 mg tablet,delayed release 40 mg PO UD PRN gerd (if needed) Other Notes If you have any questions please call us at [phone] or [phone] or [phone] or [phone]
--- NOTE | 2023-12-10 09:42 | Anesthesiology Consultation ---
Date of Service December 10, 2023 Assessment & Plan (1) Encounter for pre-operative examination: Chart Review Chart Review: Acceptable Risk for Surgery and Patient seen in Pre Admission Testing Pt currently scheduled as 23 hours observation. If surgeon decides to change patient to Same Day Joint, patient would be acceptable risk for TKA, pending patient is motivated, has good support and surgeon's office completes Same Day Joint Program preop requirements. Per PAT appt on 12/10/23, no recent illness/disease exposures, illness related symptoms, or recent illness/disease positive tests. Will leave to surgeon's discretion if preop Covid testing needed Left [facility] 10[facility]14/19= Done under [place] with LMA #4 unique and atraumatic Teaching & Discussion Pre-Anesthesia Teaching/Discussion Notes: Instructed NPO after midnight before surgery,except medications with 15 cc of water. Medication instructions provided according to the PAT guidelines. History Surgery Operation Date: 01/08/24 10:00 Proposed Procedures p Left Total Knee Arthroplasty - Zhao Lu, Height/Weight Height: 5 ft 2 in Weight: 71.8 kg Allergies Allergy/AdvReac Type Severity Reaction Status Date / Time clindamycin Allergy Unknown DIARRHEA, Verified 11/24/23 10:37 URINARY FREQUENCY & uti's. lovastatin [From Mevacor] AdvReac Unknown myalgia Verified 11/24/23 10:37 niacin AdvReac Unknown myalgia Verified 11/24/23 10:37 pravastatin [From Pravachol] AdvReac Unknown myalgia Verified 11/24/23 10:37 simvastatin [From Zocor] AdvReac Unknown myalgia Verified 11/24/23 10:37 Grvnuxc-RDU-XlP Reductase AdvReac Unknown MUSCLE Verified 11/24/23 10:37 Inhibitor PAINS [Grmobrr-Qff-Utl Reductase Inhibitor] Medications Home Medications Medication Instructions Recorded Confirmed Last Taken aspirin 81 mg tablet,delayed 81 mg PO QPM 02/04/18 11/24/23 10/04/19 release multivitamin 1 tab PO QAM 10/21/18 11/24/23 10/13/19 cholecalciferol (vitamin D3) 50 3,000 units PO QAM 11/03/18 11/24/23 10/13/19 mcg (2,000 unit) tablet (Vitamin D3) Black Seed Oil Cold Press 2 cap PO QAM 10/05/19 11/24/23 10/13/19 ezetimibe 10 mg tablet 10 mg PO HS #90 tabs 03/30/23 11/24/23 Unknown famotidine 20 mg tablet 20 mg PO BID #180 tabs 09/01/23 11/24/23 Unknown ascorbic acid 1,000 1 ea PO UD PRN fall/winter per 11/24/23 11/24/23 Unknown ll-nggkxsdivcbr-azksssuz powder choice effervescent pack (Emergen-C) calcium 500 mg tablet 500 mg PO QAM 11/24/23 11/24/23 Unknown fexofenadine 180 mg tablet 180 mg PO HS 11/24/23 11/24/23 Unknown levothyroxine 50 mcg tablet 50 mcg PO QAM 11/24/23 11/24/23 Unknown pantoprazole 40 mg tablet,delayed 40 mg PO UD PRN gerd 11/24/23 11/24/23 Unknown release Past Medical History Medical History (Updated 12/10/23 @ 10:35 by Fransisca Edward PA-C) Coronary artery calcification Noted incidentally on CT scan in 2018- seen by [facility] 2019- follow up PRN Follows with PCP- on ASA and Zetia Fatty liver No current issues with LFTs per patient GERD (gastroesophageal reflux disease) well controlled and stable History of anemia no current iron supplements History of COVID-19 (2022) No current issues History of right breast cancer (2015) hx right lumpectomy. hx 20 radiation tx's. no chemo no limb restriction per patient History of sciatica Occurs occasionally- well controlled currently Hyperlipidemia Hypothyroidism Kidney stones 6mm left, multiple small on the right. No change in the last 2-3 yrs. Upcoming lithotripsy planned for spring as long as no changes prior. Osteoarthritis Renal cyst small , not sure if still there. Exercise / Class Metabolic Activity II 4-5 Yardwork/Stairs/Walk up hill (one flight of stairs- no chest pain or SOB ) Past Family History Family History Sister Prediabetes Liver cancer Stroke Heart disease Alzheimer disease Grandmother (Maternal) Family history of diabetes mellitus Mother Hypertension Hypothyroidism Osteoarthritis Father Coronary heart disease Hypertension Prostate cancer Other No family history of adverse response to anesthesia Denies family history of Ovarian cancer Breast cancer Colorectal cancer Past Surgical History Surgical History History of appendectomy History of bilateral tubal ligation History of breast biopsy right--malignant History of colonoscopy History of lithotripsy MULT. History of lumpectomy of right breast Past Anesthesia History No Hx of Anesthesia Complications and No Family Hx of Anesthesia Complications History of PONV No Hx of PONV and No Hx of Motion Sickness Social History Smoking Status: Never smoker Do You Dip or Chew Tobacco: No Hx Alcohol Use: No Hx Substance Use: No substance use type: does not use Review of Systems Patient denies chest pain, shortness of breath, dyspnea on exertion, cough, wheezing, palpitations. No hx of seizures, stroke, DC, apnea/snoring. No hx of blood clots or blood transfusions Physical Exam Vital Signs VITALS BP 125/68 P 78 TEMP 97.7 SP02 97% RESP 16 Constitutional no acute distress ENMT Mouth: no TMJ clicking Thyromental Distance: > or= 3.5 Finger Breadths Mallampati Class: II Missing molars Crowns and caps to molars and front teeth Neck neck extension not limited Respiratory normal respiratory effort; no respiratory distress Auscultation: lungs clear to auscultation bilaterally; no wheezes Cardiovascular Rate/Rhythm: regular rate and regular rhythm Heart Sounds: no murmur Vessels: no carotid bruit Musculoskeletal Spine: no pain with cervical ROM Extremities: extremities normal to inspection Psychiatric Orientation: alert Lab Results Anesthesia Preop Results Results Anesthesia Widget: WBC 6.23 K/ul (4.8-10.8) 12/10/23 Hgb 11.7 g/dl (12.0-16.0) L 12/10/23 Hct 35.8 % (37.0-47.0) L 12/10/23 Plt 246 K/uL (130-400) 12/10/23 Na 140 mmol/L (136-145) 12/10/23 K 4.0 mmol/L (3.5-5.1) 12/10/23 Cl 104 mmol/L (98-107) 12/10/23 CO2 30 mmol/L (21-32) 12/10/23 BUN 14 mg/dl (6-23) 12/10/23 Creat 0.84 mg/dl (0.6-1.2) 12/10/23 Glucose Level 88 mg/dl (70-99(Fasting)) 12/10/23 PT 10.0 Seconds (9.0-12.0) 12/10/23 PTT 25 Seconds (21-31) 12/10/23 INR 0.9 (0.9-1.1) 12/10/23 Blood Type A Positive 12/10/23 Antibody Screen NEGATIVE 12/10/23 Testing Laboratory Results - Mild anemia- chronic and stable from previous Electrocardiogram Date: 12/10/23 Findings: + NSR @ (68bpm) Left axis deviation Poor R wave progression, consider anterior DC vs lead placement vs LVH When compared to EKG from October 07, 2019- no significant change was found per cardio Chest X-Ray Date: 03/12/23 FINDINGS: No pneumothorax. No pleural effusions. No focal lung consolidations to suggest a pneumonia. No evidence for pulmonary edema. The heart remains mildly enlarged. No acute fractures. Surgical clips noted within the right breast. There is also a biopsy clip seen within the left breast. IMPRESSION: No significant change compared to the prior study. No acute process. Echocardiogram Date: 11/18/19 EF: 60-65% LV Function: normal RWMA: + none Other Findings: no LVH or no diastolic dysfunction Valvular Disease: + no significant valvular disease Normal estimated RVSP
--- NOTE | 2024-01-07 06:45 | History & Physical Report ---
Date of Service January 07, 2024 Assessment & Plan (1) Left knee DJD: We will proceed with a left total knee arthroplasty. Postoperatively she will be started on aspirin for DVT prophylaxis and kept overnight in the hospital for postop medical management. She plans to have fit for play for physical therapy upon discharge. History of Present Illness Chief Complaint: Osteoarthritis of the left knee. Primary Care Provider: Malvin Bliss MD Danuta is a pleasant 68-year-old female who has been dealing with chronic increasing left knee pain. X-rays and MRI from Dr. Platt have shown signs of advancing arthritis, possible AVN of the left knee. After failing conservative treatment,she has elected proceed with a left total knee arthroplasty. Allergies Allergy/AdvReac Type Severity Reaction Status Date / Time clindamycin Allergy Unknown DIARRHEA, Verified 11/24/23 10:37 URINARY FREQUENCY & uti's. lovastatin [From Mevacor] AdvReac Unknown myalgia Verified 11/24/23 10:37 niacin AdvReac Unknown myalgia Verified 11/24/23 10:37 pravastatin [From Pravachol] AdvReac Unknown myalgia Verified 11/24/23 10:37 simvastatin [From Zocor] AdvReac Unknown myalgia Verified 11/24/23 10:37 Jgzjccw-TKU-OgX Reductase AdvReac Unknown MUSCLE Verified 11/24/23 10:37 Inhibitor PAINS [Aoqlkic-Nxa-Ril Reductase Inhibitor] Home Medications Medication Instructions Recorded Confirmed Type aspirin 81 mg tablet,delayed 81 mg PO QPM 02/04/18 11/24/23 History release multivitamin 1 tab PO QAM 10/21/18 11/24/23 History cholecalciferol (vitamin D3) 50 3,000 units PO QAM 11/03/18 11/24/23 History mcg (2,000 unit) tablet (Vitamin D3) Black Seed Oil Cold Press 2 cap PO QAM 10/05/19 11/24/23 History ezetimibe 10 mg tablet 10 mg PO HS #90 tabs 03/30/23 11/24/23 Rx famotidine 20 mg tablet 20 mg PO BID #180 tabs 09/01/23 11/24/23 Rx ascorbic acid 1,000 1 ea PO UD PRN fall/winter per 11/24/23 11/24/23 History gl-rclaimrhglmi-jmpefwbe powder choice effervescent pack (Emergen-C) calcium 500 mg tablet 500 mg PO QAM 11/24/23 11/24/23 History fexofenadine 180 mg tablet 180 mg PO HS 11/24/23 11/24/23 History levothyroxine 50 mcg tablet 50 mcg PO QAM 11/24/23 11/24/23 History pantoprazole 40 mg tablet,delayed 40 mg PO UD PRN gerd 11/24/23 11/24/23 History release Past Med/Surg History Problem List Encounter for pre-operative examination Right knee DJD Left knee DJD History of breast cancer 2015 Hypothyroidism Elevated liver enzymes LFTs WNL 08/2023 Cardiomegaly Mild on 03/2023 CXR No acute issues noted on 2019 ECHO Fatty liver Insomnia GERD (gastroesophageal reflux disease) Hyperlipidemia Hydronephrosis of right kidney Renal cyst Kidney stones Medical History Coronary artery calcification Noted incidentally on CT scan in 2017- seen by [facility] 2018- follow up PRN Follows with PCP- on ASA and Zetia History of COVID-19 (2022) No current issues Osteoarthritis History of sciatica Occurs occasionally- well controlled currently Renal cyst small , not sure if still there. History of right breast cancer (2015) hx right lumpectomy. hx 20 radiation tx's. no chemo no limb restriction per patient History of anemia no current iron supplements Kidney stones 6mm left, multiple small on the right. No change in the last 2-3 yrs. Upcoming lithotripsy planned for spring as long as no changes prior. Fatty liver No current issues with LFTs per patient GERD (gastroesophageal reflux disease) well controlled and stable Hypothyroidism Hyperlipidemia Surgical History History of appendectomy History of bilateral tubal ligation History of breast biopsy right--malignant History of lithotripsy MULT. History of colonoscopy History of lumpectomy of right breast Family History Sister Prediabetes Liver cancer Stroke Heart disease Alzheimer disease Grandmother (Maternal) Family history of diabetes mellitus Mother Hypertension Hypothyroidism Osteoarthritis Father Coronary heart disease Hypertension Prostate cancer Other No family history of adverse response to anesthesia Denies family history of Ovarian cancer Breast cancer Colorectal cancer Social History Smoking Status: Never smoker Second Hand Exposure: No; Do You Dip or Chew Tobacco: No; Hx Alcohol Use: No Hx Substance Use: No Preferred Language: Romanian Communication Ability: Effective Hearing Ability: Normal Plate Finisher Required: No Beliefs That Will Affect Care: None marital status: Current Living Situation: Spouse Current Living Situation Comment: lives with current occupational status: retired Feels Safe at Home: Yes Childhood Exposure to Second-Hand Smoke: Yes Diet: regular caffeine: No Dental Care, Regularly: Yes Physical Activity Frequency: Daily Seatbelt Use: always Sunscreen Use: Yes Assistive Devices: Glasses Review of Systems All systems reviewed & are unremarkable except as noted in HPI & below. Physical Exam On physical exam of the left knee, she has tenderness palpation of the distal medial femoral condyle and over the medial joint line.. Constitutional WD/WN, vitals as above Eyes PERRL, conjunctivae normal, anicteric sclerae ENMT external ear and nose normal, oropharynx normal Neck trachea midline, no thyromegaly Respiratory normal respiratory effort Cardiovascular RRR, no murmur, no edema Gastrointestinal (Abdomen) normal bowel sounds, soft, nontender, no hepatosplenomegaly Psychiatric A+Ox3, euthymic affect Results & Data Results & Data Laboratory Results . Diagnostic Findings X-rays of the left knee show advanced osteoarthritis with joint space narrowing, osteophyte formation, and szul-jg-bqud articulation. PG Care Time/CCT Total # of Minutes Spent Total Time Spent with Patient: Total time spent is greater than 50% in coordination of care (as documented) at patient's floor/unit and/or counseling patient: Coding Level of Care Code None Diagnoses Left knee DJD M17.12
[~2024-01-08 09:39] MED LIST changes: -ANAS1TAB59 PO; -ASCO125C3 PO; -ASPI81TA28 PO; +BUPIVACAINE 0.25% PF 30 ML VIAL ONE; +BUPIVACAINE 0.5 % 5 MG/1 ML PF 10ML VIAL ONE; -CHOL100010 PO; -EZET10TA63 PO; -LEVO25TA5 PO; -MULT1CHW39 PO; -NAPR1TAB9 PO; -ONDA4TAB46 PO; -RANI150T85 PO; -SACC250C11 PO; -TRAM-10 PO; -[UNRECOGNIZED DRUG - OTHER] PO
[2024-01-08] MEDS: LR 60ML/HR IV SCH (10:13)
[2024-01-08] MEDS: ACETAMINOPHEN 500 MG TAB PO SCH (10:14)
[2024-01-08] MEDS: GABAPENTIN 300 MG CAP PO SCH (10:14)
[2024-01-08] MEDS: FAMOTIDINE 20 MG TAB PO SCH ×2 (10:14→21:06)
[2024-01-08] MEDS: LR 500ML BOLUS, THEN 15ML/HR IV SCH (10:40)
[2024-01-08] MEDS: dexAMETHasone**PF** 10 MG/ML VIAL IV SCH (10:41)
[2024-01-08] MEDS ORDERED: fentaNYL citrate PF 100 MCG/2 ML VIAL ONE (11:29)
[2024-01-08] MEDS ORDERED: LIDOCAINE 2% 2 ML VIAL/AMP(20MG/ML) INFIL ONE (11:29)
[2024-01-08] MEDS ORDERED: PROPOFOL IV EMULSION 10 MG/ML 20 ML VIAL IV ONE ×3 (11:29→13:44)
[2024-01-08] MEDS ORDERED: MIDAZOLAM HCL 1 MG/ML 2ML VIAL ONE (11:29)
--- NOTE | 2024-01-08 11:36 | History & Physical Bridge Note ---
Date of Service January 08, 2024 History & Physical Bridge Note I have examined the patient, reviewed the History & Physical and in the interval since the performance of the History & Physical I have noted the following changes of clinical significance: no changes noted
[2024-01-08] MEDS: TRANEXAMIC ACID 1,000 MG **IV Pre-op IV SCH (12:34)
[2024-01-08] MEDS ORDERED: ATROPINE SULFATE 0.1 MG/ML 10ML SYR IV PRN (12:35)
[2024-01-08] MEDS ORDERED: ONDANSETRON INJ 2 MG/ML 2 ML VIAL IV PRN ×2 (12:35→14:30)
[2024-01-08] MEDS ORDERED: fentaNYL citrate PF 100 MCG/2 ML VIAL IV PRN (12:35)
[2024-01-08] MEDS ORDERED: ePHEDrine sulfate 50 MG/ML AMP IV PRN (12:35)
[2024-01-08] MEDS ORDERED: ONDANSETRON INJ 2 MG/ML 2 ML VIAL ONE (13:01)
[2024-01-08] MEDS ORDERED: ePHEDrine sulfate 50 MG/5 ML SYR ONE (13:01)
[2024-01-08] MEDS: ceFAZolin 2000MG 2,000 MG/15 ML SYR IV SCH ×2 (13:04→21:05)
[2024-01-08] MEDS: ROPIV 0.5% 246mg, Ketorolac 30mg, EPINEPHrine 0.5mg in NSS INFIL SCH (13:18)
[2024-01-08] MEDS: ORTHO JOINT ANESTHETIC ONE (13:19)
[2024-01-08] MEDS: TRANEXAMIC ACID 1,000 MG **IV Intra-op IV SCH (13:40)
--- NOTE | 2024-01-08 13:57 | Operative Report ---
PG Post Operative Report Pre & Post Diagnosis Operation Date: 01/08/24 12:00 Pre-Op Diagnosis: Left Knee Degenerative Joint Disease Post-Op Diagnosis: Left Knee Degenerative Joint Disease I identified the patient and participated in the time-out.: Yes Procedure Operation Date: 01/08/24 12:00 Actual Procedures p Left Total Knee Arthroplasty(Left) - Zhao Lu DO Surgeon Zhao Lu DO Research Programmer Rochelle Ledesma PA-C Estimated Blood Loss 30 Findings Consistent with Post-Op Diagnosis Specimens Left femoral and tibial bone Description of Procedure Implants used: I used a Olga Lidia Persona total knee arthroplasty system with a size 5 standard CR femur, C tibia, 28 oval patella, and a size 14 medial congruent polyethylene bearing. All components were cemented in place with Biomet cement. Danuta arrived [facility] for the above procedure. She was seen in the preoperative holding area and the operative extremity was identified and signed. She was given a preoperative antibiotic, TXA, a spinal anesthetic and an adductor nerve block. She was taken back to the operating room and laid on the table in supine position. She was given basic sedation. The operative knee was then prepped and draped in sterile fashion. A timeout was done, and the patient and the operative extremity was properly identified. A midline incision was made directly over the patella. Dissection was taken down to the extensor mechanism. A subvastus arthrotomy was used. The medial retinaculum was released and the fat pad was mostly excised. The knee was flexed and the ACL, PCL, and meniscus were removed. A drill was sent down the center of the femoral canal followed by an intramedullary patrice. Off that patrice a distal femoral cutting block was placed. 9 mm was resected off the distal femur at 5 of valgus. A posterior referencing AP sizing guide was then placed on the distal femur. The femur measured to be a size 5. 2 drill holes were placed in 3 of external rotation. A 4-in-1 cutting block was then impacted into place. Anterior, posterior, and chamfer cuts were then made. The proximal tibia was then exposed. An external tibial alignment guide was placed. A tibial cut guide was then anchored in place and the proximal tibia was then resected. The posterior aspect of the knee was then opened up and any additional meniscus fragments and osteophytes were removed. The tibia measured to be a size C. The tibial plate was then placed in the appropriate rotation and the tibia was drilled and punched. Trial components were then placed. I used a size 14 medial congruent polyethylene insert. The knee was brought through a full range of motion and felt to be stable. The peg holes for the femoral component were then drilled. The patella was then everted and 9 mm was resected off the posterior aspect of the patella. The patella measured to be a size 28 oval. 3 peg holes were then drilled. A trial patella was placed. The knee was once again brought through a full range of motion and felt to be stable. Trial components were then removed. The surrounding soft tissues were injected with 100 cc of an orthopedic pain control cocktail. All components were then cemented into place with Biomet cement. The final polyethylene insert was then snapped into place. Once cement was dry the tourniquet was deflated. Hemostasis was obtained. A dilute betadyne lavage was then done for 3 minutes. The joint was then irrigated with normal saline solution. The subvastus arthrotomy was then closed with #1 Vicryl suture. The skin was closed with 2-0 Vicryl, 3-0V lock suture, and barbara. A soft compressive dressing was placed. She was then transferred to a hospital bed and taken to the postanesthesia care unit in stable condition. She tolerated the procedure well. Rochelle Ledesma PA-C, was present for the entire procedure. He was critical for patient positioning, prepping, draping, retraction exposure, wound closure and application of sterile dressing. I attest to the content of the Intraoperative Record and any orders documented therein. Any exceptions are noted below.
[2024-01-08] MEDS ORDERED: NALOXONE HCL 0.4 MG/1 ML VIAL/CARP IV PRN (14:30)
[2024-01-08] MEDS ORDERED: oxyCODONE HCL IR 5 MG TAB (IMMEDIATE RELEASE) PO PRN (14:30)
[2024-01-08] MEDS ORDERED: HYDROmorphone INJ 1 MG/ML SYRINGE IV PRN (14:30)
[2024-01-08] MEDS ORDERED: HYDROmorphone INJ 0.5 MG/0.5 ML SYR IV PRN (14:30)
[2024-01-08] MEDS ORDERED: ACETAMINOPHEN 1,000 MG/100 ML VIAL IV PRN (14:30)
[2024-01-08] MEDS ORDERED: MAGNESIUM HYDROXIDE SUSP 30 ML UDC PO PRN (14:30)
[2024-01-08] MEDS ORDERED: METOCLOPRAMIDE HCL INJ 5 MG/ML 2 ML VIAL IV PRN (14:30)
[2024-01-08] MEDS ORDERED: bisacodyL 10 MG SUPP PR PRN (14:30)
[2024-01-08] MEDS ORDERED: diphenhydrAMINE Capsule 25 MG CAP PO PRN (14:30)
[2024-01-08] MEDS ORDERED: PANTOprazole 40 MG TAB PO PRN (14:35)
[2024-01-08] MEDS ORDERED: NON-FORMULARY MEDICATION (Ascorbic Acid-Multivit-Min [Emergen-C] 1,000 mg Powder Effervesc PO PRN (14:35)
--- NOTE | 2024-01-08 15:11 | Anesthesiology Progress Note ---
Date of Service January 08, 2024 Anesthesia Post Procedure Vital Signs Vital Signs: Temp Pulse Resp BP Pulse Ox O2 Del Method O2 Flow Rate 01/08/24 15:05 89 15 118/60 98 Room Air 01/08/24 14:55 91 H 14 127/59 L 98 Room Air 01/08/24 14:45 86 16 118/57 L 95 Oxymask 3 01/08/24 14:35 79 13 107/51 L 99 Oxymask 6 01/08/24 14:29 36.0 C L 82 18 106/51 L 97 Oxymask 6 01/08/24 10:11 36.6 C 81 20 155/79 H 99 Room Air Pain Intensity Left Knee: Pain Intensity: 4 Transfer of Care Handoff Completed per policy Notes Mental Status: alert / awake / arousable Patient Amnestic to Procedure: Yes Nausea / Vomiting: adequately controlled Pain: adequately controlled Airway Patency, RR, SpO2: stable & adequate BP & HR: stable & adequate Hydration State: stable & adequate Neuraxial Anesthesia: was administered and sensory block is resolving Anesthetic Complications: no major complications apparent
[2024-01-08] MEDS: KETOROLAC TROMETHAMINE 15 MG/ML VIAL IV SCH (16:39)
[2024-01-08] MEDS: SENNA 8.6 MG TAB PO SCH (21:04)
[2024-01-08] MEDS: DOCUSATE SODIUM 100 MG CAP PO SCH (21:04)
[2024-01-08] MEDS: EZETIMIBE 10 MG TAB PO SCH (21:05)
[2024-01-08] MEDS: FEXOFENADINE HCL 180 MG TAB PO SCH (21:07)
[2024-01-09] MEDS: LEVOTHYROXINE SODIUM 50 MCG TABLET PO SCH (05:10)
[2024-01-09 07:13] VITALS: BP 109/70; PULSE 76; RESP 16; TEMP 97.9; O2SAT 98
--- NOTE | 2024-01-09 08:09 | XRay Report ---
EXAM: XR knee LT 1 or 2V routine CLINICAL HISTORY: POST OP LT KNEE PORTABLE BME TECHNIQUE: X-ray images of the left knee were obtained in anteroposterior (AP), lateral crosstable projections. COMPARISON: X-ray dated 09/17/2023. FINDINGS: Bone Structure: Bone structure is normal and well-aligned. No evidence of acute fractures or dislocations. No osseous lesions or abnormalities identified. Evidence of total knee replacement. Soft Tissues: Soft tissue swelling and air densities are noted as likely recent operative changes. Additional Findings: Cutaneous surgical abrbara are seen. IMPRESSION: 1. Recent total knee replacement showing early postoperative changes. Clinical correlation and follow-up as clinically indicated. 2. Mild suprapatellar joint effusion. Interval new finding. Disclaimer: A subtle bone abnormality or fracture may not be readily apparent on X-rays, thus clinical correlation and further imaging including follow-up CT, MRI, or follow-up X-rays are advised as needed. Electronically signed by Kat Vance 01-09-2024 08:08 AM
[2024-01-09] MEDS: MULTIVITAMIN TAB PO SCH (08:10)
[2024-01-09] MEDS: CALCIUM CARBONATE 1250MG TAB PO SCH (08:10)
[2024-01-09] MEDS: CHOLECALCIFEROL 25 MCG (1000 UNITS) TAB PO SCH (08:10)
[2024-01-09] MEDS: dexAMETHasone 4 MG TAB PO SCH (08:10)
--- NOTE | 2024-01-09 08:25 | Orthopedic Progress Note ---
Date of Service January 09, 2024 Assessment & Plan (1) Status post left knee replacement: Overall she doing well. She is not having much pain in the left knee. She will be seen by physical therapy today for ambulation and range of motion exercises. She is on aspirin for DVT prophylaxis. The nursing staff can change her dressing after physical therapy. She can be discharged to home later today. She will follow-up with orthopedics in 2 weeks. Dominik Tipton was seen and examined at bedside this morning. Overall she is doing very well. She is not having much pain in the left knee. She has been up and ambulating to the bathroom. She has no complaints.. Review of Systems All systems reviewed & are unremarkable except as noted in HPI & below. Physical Exam On physical exam of the left knee, the dressing is clean and dry. Her leg is out full extension. She has active dorsiflexion and plantarflexion of her left ankle.. Results & Data Results & Data Laboratory Results . Diagnostic Findings Postoperative x-rays of the left knee show the prosthesis to be in anatomic alignment without any evidence of fracture complication, or loosening.. PG Care Time/CCT Total # of Minutes Spent Total Time Spent with Patient: Total time spent is greater than 50% in coordination of care (as documented) at patient's floor/unit and/or counseling patient: Coding Level of Care Code 48910 Post Operative Follow-Up Diagnoses Status post left knee replacement Z96.652
--- NOTE | 2024-01-09 08:26 | Discharge Summary ---
Date of Service January 09, 2024 Admission HPI (Per Admitting) Danuta is a pleasant 68-year-old female who has been dealing with chronic increasing left knee pain. X-rays and MRI from Dr. Platt have shown signs of advancing arthritis, possible AVN of the left knee. After failing conservative treatment,she has elected proceed with a left total knee arthroplasty. Admission Exam (Per Admitting) On physical exam of the left knee, she has tenderness palpation of the distal medial femoral condyle and over the medial joint line.. Principal Diagnosis Same as "Discharge Diagnosis" noted below under Discharge Instructions. Discharge Exam On physical exam of the left knee, the dressing is clean and dry. Her leg is out full extension. She has active dorsiflexion and plantarflexion of her left ankle.. Discharge Data Procedures Performed Operation Date: 01/08/24 12:00 Actual Procedures p Left Total Knee Arthroplasty(Left) - Zhao Lu DO Ordered Studies 01/08/24 05:00 US - OR guided needle placemen Routine Hospital Course (1) Status post left knee replacement: On January 08, 2024 Danuta arrived at [facility] and underwent a left knee replacement without complication. She had a spinal anesthetic. Postoperatively she was started on aspirin for DVT prophylaxis and transferred to the general orthopedic floors. Her hospital course was uneventful. On postop day #1, her vital signs were stable and her pain was well-controlled. She was able to participate well with physical therapy doing ambulation and range of motion exercises. She was then discharged to home. She will follow-up orthopedics in 2 weeks. PG Care Time/CCT Total # of Minutes Spent Total Time Spent with Patient: Total time spent is greater than 50% in coordination of care (as documented) at patient's floor/unit and/or counseling patient: Discharge Plan Discharge Items Patient Disposition: Home - Self-Care Reason For Visit: S/P LEFT KNEE TOTAL ARTHROPLASTY Discharge Diagnosis: Left knee replacement Activity: Per Instructions section Non-emergency contact: Surgeon Call non-emergency contact if: your wound has increased redness and your wound has increased drainage Follow-up/Referrals: Malvin Bliss MD [Primary Care Provider] - Diet: Regular Addtl Attending Provider Instructions: Activity and Therapy Recommendations: * If you are using [facility] then therapy will be provided at your home until they feel you have accomplished all of your goals. * If you are using [facility] then Physical Therapy will be provided until they feel you are ready to start Outpatient Physical Therapy. * If you are not using home therapy then Outpatient Physical Therapy should start about 3-5 days from your day of surgery. Therapy will last about 6-10 weeks * It is important not to put a pillow under your knee when you are relaxing or sleeping. It is just as important to make sure you are getting your knee perfectly straight as it is to regain your knee bend. * You were shown a series of exercises in the hospital. Do these exercises three times each day including the exercises you were shown in physical therapy. * Get up and walk several times each day. For the first four weeks, try not to stand or walk for more than one hour at a time. If you do stand or walk for more than one hour, you will not hurt anything, but your leg will likely swell. * As you feel comfortable, you may change from the walker or crutches to a cane and then to independent walking. Medications: * Narcotic You will likely be sent home from the hospital with a prescription for the narcotic pain medication that worked best throughout your stay. * Cefadroxil -take the antibiotic twice a day for 10 days to help prevent infection. * Aspirin Most patients will be required to take Aspirin 81mg twice a day for 6 weeks after surgery. This is obtained [id number]-[id number] and a prescription is not necessary. * Other medications may be prescribed for specific circumstances. If you have any questions, please call the office at . * Resume previous home medications unless otherwise instructed TEDs/Elastic Stockings: The white elastic stockings help limit swelling and prevent blood clots from forming in your legs.~ The more you wear them, the more they work. Wear them for six weeks. Dressing Care: The dressing can be changed after physical therapy on postop day #1. Daily dry dressing changes for a few days, especially if the incision is still draining some. If the incision is not draining then you may leave the barbara open to air. If there is a little bit of drainage or if the barbara are getting stuck on your clothing then cover the incision with a dry dressing. The barbara will be removed at your 2 week follow-up appointment. Showering: You may shower 5 days from the day of surgery as long as the incision is no longer draining. You may shower with the barbara exposed. Let soapy water run over the barbara and pat them dry. Do not scrub or soak the incision. Diet: You may resume your previous diet. Things To Watch For: * Drainage from the incision site that occurs more than one week after your surgery. * Increased redness at the incision site. * Fever above 102 degrees Fahrenheit. * Unusual chest pain or shortness of breath. * Call [facility] at with any of the above problems Follow-Up Visit: Follow-up with Dr. Lu's PA (Zhao Velazco) 2-3 weeks after your day of surgery. He will remove your barbara and answer any questions. If you have any additional questions or concerns, Dr Lu is usually in the office at the same time and will be available An appointment was probably scheduled when you signed-up for surgery in the office. If you have any questions call Office Instructions: More detailed instructions as well as Frequently Asked Questions were provided in a folder by our office when you signed-up for surgery. Please review these instructions when you get home. If you have any further questions or concerns, please feel free to call the office at [phone] Pending Studies at Discharge: No Stand-Alone Forms: My [facility] Medications and DC Order Prescriptions: New oxycodone 5 mg Tablet 5 mg PO Q4H PRN (Reason: pain) Qty: 30 0RF cefadroxil 500 mg capsule 500 mg PO BID 10 Days Qty: 20 0RF Continued cholecalciferol (vitamin D3) [Vitamin D3] 2,000 unit tablet 3,000 units PO QAM ezetimibe 10 mg tablet 10 mg PO HS Qty: 90 3RF famotidine 20 mg tablet 20 mg PO BID Qty: 180 3RF multivitamin tablet 1 tab PO QAM Black Seed Oil Cold Press 2 cap PO QAM calcium 500 mg Tablet 500 mg PO QAM levothyroxine 50 mcg tablet 50 mcg PO QAM pantoprazole 40 mg tablet,delayed release (DR/EC) 40 mg PO UD PRN (Reason: gerd) fexofenadine 180 mg Tablet 180 mg PO HS Emergen-C 1,000 mg Powder Effervescent In Packet 1 ea PO UD PRN (Reason: fall/winter per choice ) Changed aspirin 81 mg Tablet,Delayed Release (Dr/Ec) 81 mg PO BID 42 Days Qty: 0 0RF Discharge Orders: Discharge Order (Routine); Ordered 01/09/24 Ordered By: Zhao Lu Admission Data Admit Date/Time: 01/08/24 14:30 Attending Provider: Zhao Lu Admit Provider: Zhao Lu Primary Care Provider: Malvin Bliss
[2024-01-09] MEDS ORDERED: NON-FORMULARY MEDICATION (Multivitamin tablet) PO SCH (09:00)
[2024-01-09] MEDS ORDERED: BLACK SEED OIL PO SCH (09:00)
[2024-01-09] MEDS ORDERED: ASPIRIN 81 MG ECTAB PO SCH (21:00)
== END 2024-01-09 11:06 | disposition home or self-care (01) ==
LOC: 3W 09:39 → ASU 09:39

== ENCOUNTER 2024-08-31 08:44 | Inpatient (IN) ==
--- NOTE | 2024-08-31 09:05 | Emergency Department Note ---
Impression & Plan Acute CVA (cerebrovascular accident), Expressive aphasia ED Provider Note HISTORY OF PRESENT ILLNESS: Patient is a 69-year-old female presenting with strokelike symptoms. provides history, as patient is having significant expressive aphasia. Reports that he last saw her well at around 8 AM. Reports that between 8 and 815 the patient seemed to be flexing and extending her fingers on both hands and states she was not feeling right. He states that at 815 she started having difficulty speaking and he noticed profound slurred speech that continued to get worse on presentation to the emergency department. He reports that she was complaining of right sided weakness. She is on a baby aspirin daily but no other anticoagulation or antiplatelet therapies. No history of A-fib. ROS: as above PHYSICAL EXAM: Constitutional: Patient appears in no acute distress. HENT: Head: Normocephalic and atraumatic. Eyes: EOMI, PERRL Mouth/Throat: Mucous membranes moist. Neck: Trachea midline. Neck supple. Cardiovascular: RRR, No murmurs, rubs or gallops. Intact distal pulses. Pulmonary/Chest: No respiratory distress. Breath sounds clear and equal bilaterally. No wheezes or rales. Abdominal: Abdomen soft, no tenderness, rebound or guarding. Musculoskeletal: No edema, tenderness or deformity noted. Skin: Warm and dry. No rash, erythema, pallor or cyanosis Neurological: Alert. Patient having significant expressive aphasia and is unable to identify objects. She is unable to answer orientation questions. Slight decreased strength in the right upper extremity with 4 out of 5 strength. 5 out of 5 strength in the left upper and left lower extremities and in the right lower extremity. Symmetric facies. Sensation intact to light touch throughout the nerve distributions of the bilateral upper and lower extremities. MDM: - Vitals signs showed hypertension. Fingerstick glucose 99 on arrival to the ER. - History obtained via patient's , given her aphasia.. History as above. - Chronic conditions affecting care: Hypothyroidism; HLD - Differential diagnoses include, but are not limited to: CVA; intracranial hemorrhage; hypoglycemia; complex migraine - Order placed for continuous cardiac monitoring. At this time, monitor showed rate of 73 bpm with normal sinus rhythm, per my interpretation. - External medical records reviewed. Primary care visit note dated 06/03/2024 was reviewed. Patient was seen for orthopedic complaints at that visit and an orthopedic referral was placed. - IV access was obtained. Patient was taken over to CT scan from triage. - CT head wo contrast images interpreted by myself was negative for acute intracranial hemorrhage, per my interpretation. - Prior to telestroke consultation, I did discuss TNK administration with the patient's , given that she could not consent for self secondary to her aphasia. Discussed the less than 6% chance of risk of bleeding with TNK administration. Discussed that telestroke would also discuss this with him, but I did discuss that patient is a prime candidate for TNK administration, given her prompt presentation with her symptom onset and her debilitating symptoms with her aphasia. denies the patient ever having intracranial hemorrhage. Denies any recent surgeries other than a knee surgery in January 2024. - Discussed case with teleneurologist from [facility], Dr. Olivo, at 9:10 am. She plans to evaluate the patient via the telestroke cart. - CTA head/neck showed occlusion of an M2 branch of left middle cerebral artery, likely secondary to acute thrombus, per radiology. - Patient was evaluated by teleneurologist from [facility], Dr. Olivo, at 9:12. Dr. Olivo messaged me at 9:37 and requested that I order TNK. TNK was administered at 9:37. - Patient was reevaluated at 9:48 AM and had significant improvement in her aphasia. Her speech is almost completely normal at this point. also reports her speech has significantly improved. Patient is now able to identify objects and speak in complete sentences. - Was called to patient's bedside by nursing staff at 10:00 am. Patient is complaining of right hand numbness and her speech sounds very broken again. Given that she was just given TNK, she was taken over for CT Noncon to ensure no intracranial hemorrhage conversion. Repeat fingerstick glucose 86. - CT head wo contrast negative for intracranial hemorrhage. - Updated Dr. Olivo on symptoms. She recommended that patient's head of bed be lowered and she started on a liter bolus of normal saline followed by maintenance fluids. - Discussed case on a conference call with endovascular physician and Dr. Olivo at [facility] at 10:43. Technically, the patient does have a large vessel occlusion, though it is a distal branch of the M2 segment. They were concerned that if the patient were still having significant symptoms that she should be transferred. However, patient has near resolution of her speech abnormalities and has no focal neurological deficits at this point. Dr. Olivo thinks that patient's systolic blood pressure should be at a goal of greater than 160 for the next 24 hours. Thinks that maybe some of her post TNKase symptoms could be secondary to transient blood pressure changes. Recommended that her head of bed remain down. Stated that if the patient develops a headache or any changes in neurological status, [facility] telestroke should be consulted for reevaluation and potential transfer. - EKG image interpreted by myself showed normal sinus rhythm. Rate 76 bpm. QT 406. No acute ischemic changes - Laboratory workup interpreted by myself showed normal WBC; normal PT/INR; slight hyponatremia (Na 134); normal creatinine - CXR image reviewed by myself is negative for pneumonia, per my interpretation. - Discussion was had with watch case polisher about patient's case and need for admission - Hospitalist consulted for admission - Patient admitted to [facility] service for further evaluation and management. I have personally spent 83 minutes of critical care time in the direct management of this patient. This includes bedside care, interpretation of diagnostic studies, and testing, discussion with consultants, patient, and family members, and other required patient management activities. This 83 minutes is in excess of all separately billable procedures. ASSESSMENT AND PLAN: Diagnosis: Acute CVA; expressive aphasia Plan: Admit Past Med/Surg History Problem List (Updated 08/31/24 @ 10:54 by Mahi Arevalo MD) Expressive aphasia (Acute) Acute CVA (cerebrovascular accident) (Acute) Right elbow pain Status post left knee replacement (~01/2024) Right knee DJD Left knee DJD History of breast cancer 2016 Hypothyroidism Elevated liver enzymes LFTs WNL 08/2023 Cardiomegaly Mild on 03/2023 CXR No acute issues noted on 2019 ECHO Fatty liver Insomnia GERD (gastroesophageal reflux disease) Hyperlipidemia Hydronephrosis of right kidney Renal cyst Kidney stones Medical History (Updated 08/31/24 @ 10:54 by Mahi Arevalo MD) Coronary artery calcification Noted incidentally on CT scan in 2017- seen by [facility] 2018- follow up PRN Follows with PCP- on ASA and Zetia History of COVID-19 (2022) No current issues Osteoarthritis History of sciatica Occurs occasionally- well controlled currently Renal cyst small , not sure if still there. History of right breast cancer (2016) hx right lumpectomy. hx 20 radiation tx's. no chemo no limb restriction per patient History of anemia no current iron supplements Kidney stones 6mm left, multiple small on the right. No change in the last 2-3 yrs. Upcoming lithotripsy planned for spring as long as no changes prior. Fatty liver No current issues with LFTs per patient GERD (gastroesophageal reflux disease) well controlled and stable Hypothyroidism Hyperlipidemia Surgical History History of left knee replacement History of appendectomy History of bilateral tubal ligation History of breast biopsy History of lithotripsy History of colonoscopy History of lumpectomy of right breast Family History Sister Prediabetes Liver cancer Stroke Heart disease Alzheimer disease Grandmother (Maternal) Family history of diabetes mellitus Mother Hypertension Hypothyroidism Osteoarthritis Father Coronary heart disease Hypertension Prostate cancer Other No family history of adverse response to anesthesia Denies family history of Ovarian cancer Breast cancer Colorectal cancer Social History Smoking Status: Never smoker Second Hand Exposure: No; Do You Dip or Chew Tobacco: No; Hx Alcohol Use: No Hx Substance Use: No Preferred Language: Albanian Communication Ability: Effective Hearing Ability: Normal [place] Required: No Beliefs That Will Affect Care: None marital status: Current Living Situation: Spouse Current Living Situation Comment: lives with current occupational status: retired Feels Safe at Home: Yes Childhood Exposure to Second-Hand Smoke: Yes Diet: regular caffeine: No Dental Care, Regularly: Yes Physical Activity Frequency: Daily Seatbelt Use: always Sunscreen Use: Yes Assistive Devices: Glasses Allergies Allergies Allergy/AdvReac Type Severity Reaction Status Date / Time clindamycin Allergy Unknown DIARRHEA, Verified 06/03/24 11:03 URINARY FREQUENCY & uti's. lovastatin [From Mevacor] AdvReac Unknown myalgia Verified 06/03/24 11:03 niacin AdvReac Unknown myalgia Verified 06/03/24 11:03 pravastatin [From Pravachol] AdvReac Unknown myalgia Verified 06/03/24 11:03 simvastatin [From Zocor] AdvReac Unknown myalgia Verified 06/03/24 11:03 Rayjewn-MSM-PnR Reductase AdvReac Unknown MUSCLE Verified 06/03/24 11:03 Inhibitor PAINS [Owpaovd-Axo-Qtu Reductase Inhibitor] Home Meds Home Medications Medication Instructions Recorded Confirmed multivitamin 1 tab PO QAM 10/21/18 06/03/24 cholecalciferol (vitamin D3) 50 3,000 units PO QAM 11/03/18 06/03/24 mcg (2,000 unit) tablet (Vitamin D3) Black Seed Oil Cold Press 2 cap PO QAM 10/05/19 06/03/24 ascorbic acid 1,000 1 ea PO UD PRN fall/winter per 11/24/23 06/03/24 [id number]-[id number] powder choice effervescent pack (Emergen-C) calcium 500 mg tablet 500 mg PO QAM 11/24/23 06/03/24 fexofenadine 180 mg tablet 180 mg PO HS 11/24/23 06/03/24 aspirin 81 mg tablet,delayed 81 mg PO DAILY 05/03/24 06/03/24 release Previous Rx's Medication Instructions Recorded ezetimibe 10 mg tablet 10 mg PO HS #90 tabs 03/04/24 pantoprazole 40 mg tablet,delayed 40 mg PO DAILY PRN gerd #90 tabs 05/03/24 release amoxicillin 500 mg capsule 2,000 mg (4 x 500 mg) PO ONCE #4 06/09/24 caps famotidine 20 mg tablet 20 mg PO BID #180 tabs 08/22/24 levothyroxine 50 mcg tablet 50 mcg PO QAM #90 tabs 08/22/24 Results & Data (ED) Vital Signs Vital Signs - 24 hr 08/31/24 08:45 08/31/24 08:50 08/31/24 09:15 Temperature 36.2 C L Temperature Source Temporal Artery Scan Pulse Rate 77 72 Pulse Rate [Apical] Pulse Rhythm Regular Respiratory Rate 20 Respiratory Effort / Characteristics Non-Labored Spontaneous Respiratory Depth Normal Respiratory Pattern Regular Blood Pressure 163/86 H Blood Pressure [Left Arm] Blood Pressure Mean 111 Blood Pressure Mean [Left Arm] Blood Pressure Position Sitting Pulse Oximetry 97 100 Oxygen Delivery Method Room Air Room Air Sepsis Recent Fever Within 48 Hours No Sepsis New/Unexplained Change in Mental Status No Sepsis Action Taken by Nursing No Action Required 08/31/24 09:35 08/31/24 09:50 08/31/24 10:12 Temperature Temperature Source Pulse Rate Pulse Rate [Apical] 67 70 73 Pulse Rhythm Respiratory Rate 24 22 18 Respiratory Effort / Characteristics Non-Labored Spontaneous Respiratory Depth Normal Respiratory Pattern Blood Pressure Blood Pressure [Left Arm] 165/91 H 135/104 H 124/104 H Blood Pressure Mean Blood Pressure Mean [Left Arm] 115 114 110 Blood Pressure Position Pulse Oximetry 100 100 99 Oxygen Delivery Method Room Air Room Air Room Air Sepsis Recent Fever Within 48 Hours Sepsis New/Unexplained Change in Mental Status Sepsis Action Taken by Nursing 08/31/24 10:12 08/31/24 10:20 08/31/24 10:35 Temperature 36.4 C L Temperature Source Oral Pulse Rate Pulse Rate [Apical] 68 71 Pulse Rhythm Respiratory Rate 19 17 Respiratory Effort / Characteristics Respiratory Depth Respiratory Pattern Blood Pressure Blood Pressure [Left Arm] 152/77 H 164/93 H Blood Pressure Mean Blood Pressure Mean [Left Arm] 102 116 Blood Pressure Position Pulse Oximetry 99 99 98 Oxygen Delivery Method Room Air Room Air Room Air Sepsis Recent Fever Within 48 Hours Sepsis New/Unexplained Change in Mental Status Sepsis Action Taken by Nursing 08/31/24 10:50 Temperature Temperature Source Pulse Rate Pulse Rate [Apical] 75 Pulse Rhythm Respiratory Rate 22 Respiratory Effort / Characteristics Respiratory Depth Respiratory Pattern Blood Pressure Blood Pressure [Left Arm] 163/75 H Blood Pressure Mean Blood Pressure Mean [Left Arm] 104 Blood Pressure Position Pulse Oximetry 95 Oxygen Delivery Method Room Air Sepsis Recent Fever Within 48 Hours Sepsis New/Unexplained Change in Mental Status Sepsis Action Taken by Nursing Laboratory Data 08/31/24 09:09 08/31/24 09:09 Lab Results 08/31/24 08/31/24 08/31/24 Range/Units 09:05 09:09 09:12 WBC 5.51 (4.8-10.8) K/ul RBC 3.68 L (4.20-5.40) M/uL Hgb 11.4 L (12.0-16.0) g/dl POC Hgb 11.6 L (12.0-16.0) g/dl Hct 34.1 L (37.0-47.0) % POC Hct 34 L (37-47) % MCV 92.7 (80.0-100.0) fL MCH 31.0 (25.0-34.0) pg MCHC 33.4 (32.0-36.0) g/dL RDW Std Deviation 46.0 (36.4-46.3) fL RDW Coeff of Cris 13.5 (11.5-14.5) % Plt Count 192 (130-400) K/uL MPV 11.4 (9.4-12.4) fL PT 9.8 (9.0-12.0) Seconds INR 0.9 (0.9-1.1) APTT 24 (21-31) Seconds PTT Ratio 0.9 POC Sodium 135 (135-144) mmol/L Sodium 134 L (136-145) mmol/L POC Potassium 4.4 (3.3-5.0) mmol/L Potassium 4.3 (3.5-5.1) mmol/L POC Chloride 101 (101-112) mmol/L Chloride 103 (98-107) mmol/L Carbon Dioxide 28 (21-32) mmol/L POC Total CO2 26 (24-31) mmol/L Anion Gap 3 (3-11) POC Anion Gap 14.0 L (16-25) mmol/L POC BUN 20 H (7-18) mg/dl BUN 16 (6-23) mg/dl Creatinine 0.81 (0.6-1.2) mg/dl POC Creatinine 0.9 (0.6-1.3) mg/dl Est Cr Clr Drug Dosing 62.5 ml/min eGFR 78.53 BUN/Creatinine Ratio 19.8 (10-20) Glucose 94 (70-99(Fasting)) mg/dl POC Glucose 99 (70-99) mg/dl POC Glucose (other) 91 (70-99) mg/dl Calcium 8.9 (8.6-10.3) mg/dl POC Ioniz Calcium Sebastián 1.11 L (1.12-1.32) mmol/l Magnesium 2.0 (1.7-2.4) mg/dl Total Bilirubin 0.4 (0.2-1.0) mg/dl AST 34 (13-39) U/L ALT 42 (7-52) U/L Alkaline Phosphatase 72 (34-104) U/L Total Protein 6.5 (6.0-8.3) gm/dl Albumin 4.2 (3.4-5.0) gm/dl Globulin 2.3 L (2.5-4.0) gm/dl Albumin/Globulin Ratio 1.8 (0.9-2) // Range/Units 10:13 WBC (4.8-10.8) K/ul RBC (4.20-5.40) M/uL Hgb (12.0-16.0) g/dl POC Hgb (12.0-16.0) g/dl Hct (37.0-47.0) % POC Hct (37-47) % MCV (80.0-100.0) fL MCH (25.0-34.0) pg MCHC (32.0-36.0) g/dL RDW Std Deviation (36.4-46.3) fL RDW Coeff of Cris (11.5-14.5) % Plt Count (130-400) K/uL MPV (9.4-12.4) fL PT (9.0-12.0) Seconds INR (0.9-1.1) APTT (21-31) Seconds PTT Ratio POC Sodium (135-144) mmol/L Sodium (136-145) mmol/L POC Potassium (3.3-5.0) mmol/L Potassium (3.5-5.1) mmol/L POC Chloride (101-112) mmol/L Chloride (98-107) mmol/L Carbon Dioxide (21-32) mmol/L POC Total CO2 (24-31) mmol/L Anion Gap (3-11) POC Anion Gap (16-25) mmol/L POC BUN (7-18) mg/dl BUN (6-23) mg/dl Creatinine (0.6-1.2) mg/dl POC Creatinine (0.6-1.3) mg/dl Est Cr Clr Drug Dosing ml/min eGFR BUN/Creatinine Ratio (10-20) Glucose (70-99(Fasting)) mg/dl POC Glucose 86 (70-99) mg/dl POC Glucose (other) (70-99) mg/dl Calcium (8.6-10.3) mg/dl POC Ioniz Calcium Sebastián (1.12-1.32) mmol/l Magnesium (1.7-2.4) mg/dl Total Bilirubin (0.2-1.0) mg/dl AST (13-39) U/L ALT (7-52) U/L Alkaline Phosphatase (34-104) U/L Total Protein (6.0-8.3) gm/dl Albumin (3.4-5.0) gm/dl Globulin (2.5-4.0) gm/dl Albumin/Globulin Ratio (0.9-2) Administered Medications Discontinued Medications Tenecteplase 19 mg/ Syringe 3.8 mls @ 45.6 mls/min IV NOW ONE; Protocol Stop: 08/31/24 09:41 Last Admin: 08/31/24 09:37 Dose: 45.6 mls/min Documented By: MARY Co-signed By: HECTOR Ioversol (Optiray 320 125ml) 112 ml IV ONCE ONE Stop: 08/31/24 09:08 Last Admin: 08/31/24 09:08 Dose: 112 ml Documented By: CORINNE Imaging Data Radiologist's Impression: Chest X-Ray 08/31/24 08:55 XR chest 1V portable CLINICAL HISTORY: stroke alert COMPARISON STUDY: 03/12/2023 FINDINGS: Stable mild cardiomegaly without pulmonary vascular congestion. No effusion, consolidation, or pneumothorax. IMPRESSION: No acute findings. ACT 112: Negative or not required by law. Electronically signed by: Cristofer Macias M.D. 08/31/2024 10:[address] 08/31/24 08:55 CT head/brain wo con CLINICAL HISTORY: Neuro deficit, acute, stroke suspected. TECHNIQUE: Multiple axial CT images of the head were obtained without contrast. A dose lowering technique was utilized adhering to the principles of ALARA. CT DOSE: 1117 COMPARISON: None FINDINGS: No intracranial hemorrhage seen. No mass effect, midline shift, or hydrocephalus. No skull fracture seen. Visualized paranasal sinuses and mastoid air cells are clear. IMPRESSION: No acute findings. ACT 112: Negative or not required by law. The above report was generated using voice recognition software. It may contain grammatical, syntax or spelling errors. Electronically signed by: Cristofer Macias M.D. 08/31/2024 9:14 AM Head CTA 08/31/24 08:55 CT angio head w con, CT angio neck with con CLINICAL HISTORY: 69 years-old Female with stroke like symptoms. Acute strokelike symptoms COMPARISON STUDY: Head CT of same day TECHNIQUE: Following the IV administration of 112 cc of Optiray, CT angiogram of the head and neck was performed from the aortic arch to the skull apex. Images are reviewed in the axial, sagittal, and coronal planes. 3-D MIPS images are created and assessed. IV contrast was administered without complication. All measurements were obtained according to NASCET criteria. A dose lowering technique was utilized adhering to the principles of ALARA. CT DOSE: 1117. mGy.cm FINDINGS: CT BRAIN: Dictated separately. Involutional changes with chronic microvascular ischemic disease. CT ANGIOGRAM OF THE HEAD AND NECK: Three-vessel morphology of the thoracic arch. Patency of the innominate and imaged subclavian arteries. Common and internal carotid arteries are widely patent. Occlusion involves an M2 branch of the left middle cerebral artery, image 108 series 6 within the sylvian fissure. Otherwise patent bilateral anterior and right-sided middle cerebral arteries. The vertebrobasilar system and posterior cerebral arteries are widely patent. There is no aneurysm, high- grade stenosis, or additional proximal branch occlusion identified. Dural sinuses appear patent. Lung apices are clear. Unremarkable soft tissues. Multilevel degenerative changes of the cervical spine. IMPRESSION: 1. Occlusion of an M2 branch of the left middle cerebral artery, likely secondary to acute thrombus. 2. Otherwise unremarkable CTA of the head and neck. ACT 112: Negative or not required by law. The above report was generated using voice recognition software. It may contain grammatical, syntax or spelling errors. Electronically signed by: Skyler Ellis M.D. 08/31/2024 9:28 AM Neck CTA 08/31/24 08:55 CT angio head w con, CT angio neck with con CLINICAL HISTORY: 69 years-old Female with stroke like symptoms. Acute strokelike symptoms COMPARISON STUDY: Head CT of same day TECHNIQUE: Following the IV administration of 112 cc of Optiray, CT angiogram of the head and neck was performed from the aortic arch to the skull apex. Images are reviewed in the axial, sagittal, and coronal planes. 3-D MIPS images are created and assessed. IV contrast was administered without complication. All measurements were obtained according to NASCET criteria. A dose lowering technique was utilized adhering to the principles of ALARA. CT DOSE: 1117. mGy.cm FINDINGS: CT BRAIN: Dictated separately. Involutional changes with chronic microvascular ischemic disease. CT ANGIOGRAM OF THE HEAD AND NECK: Three-vessel morphology of the thoracic arch. Patency of the innominate and imaged subclavian arteries. Common and internal carotid arteries are widely patent. Occlusion involves an M2 branch of the left middle cerebral artery, image 108 series 6 within the sylvian fissure. Otherwise patent bilateral anterior and right-sided middle cerebral arteries. The vertebrobasilar system and posterior cerebral arteries are widely patent. There is no aneurysm, high- grade stenosis, or additional proximal branch occlusion identified. Dural sinuses appear patent. Lung apices are clear. Unremarkable soft tissues. Multilevel degenerative changes of the cervical spine. IMPRESSION: 1. Occlusion of an M2 branch of the left middle cerebral artery, likely secondary to acute thrombus. 2. Otherwise unremarkable CTA of the head and neck. ACT 112: Negative or not required by law. The above report was generated using voice recognition software. It may contain grammatical, syntax or spelling errors. Electronically signed by: Skyler Ellis M.D. 08/31/2024 9:[address] 08/31/24 10:04 CT head/brain wo con CLINICAL HISTORY: Stroke Alert. Follow-up TNK. TECHNIQUE: Multiple axial CT images of the head were obtained without contrast. A dose lowering technique was utilized adhering to the principles of ALARA. CT DOSE: 625.8 mGy.cm COMPARISON: Exam earlier today FINDINGS: There is expected intravascular contrast. No intracranial hemorrhage seen. No mass effect, midline shift, or hydrocephalus. IMPRESSION: No intracranial hemorrhage seen. ACT 112: Negative or not required by law. The above report was generated using voice recognition software. It may contain grammatical, syntax or spelling errors. Electronically signed by: Cristofer Macias M.D. 08/31/2024 10:23 AM Discharge Plan Visit Data Chief Complaint: Stroke Alert Stated Complaint: SLURRED WORDS,DIZZINESS,FEELING UN WELL ED Provider: Mahi Arevalo Discharge Problem: Acute CVA (cerebrovascular accident), Expressive aphasia Patient Disposition: Transfer Acute Care Hospital Condition: Serious Forms Stand Alone Forms: My [facility] Prescriptions Prescriptions: No Action cholecalciferol (vitamin D3) [Vitamin D3] 2,000 unit tablet 3,000 units PO QAM ezetimibe 10 mg tablet 10 mg PO HS Qty: 90 3RF amoxicillin 500 mg capsule 2,000 mg PO ONCE Qty: 4 0RF Rx Instructions: Take 4 Capsules (2000 mg) by mouth ONE hour prior to dental procedure. levothyroxine 50 mcg tablet 50 mcg PO QAM Qty: 90 3RF famotidine 20 mg tablet 20 mg PO BID Qty: 180 3RF aspirin 81 mg tablet,delayed release (DR/EC) 81 mg PO DAILY pantoprazole 40 mg tablet,delayed release (DR/EC) 40 mg PO DAILY PRN (Reason: gerd) Qty: 90 3RF multivitamin tablet 1 tab PO QAM Black Seed Oil Cold Press 2 cap PO QAM calcium 500 mg Tablet 500 mg PO QAM fexofenadine 180 mg Tablet 180 mg PO HS Emergen-C 1,000 mg Powder Effervescent In Packet 1 ea PO UD PRN (Reason: fall/winter per choice ) Referrals Referrals: Malvin Bliss MD [Primary Care Provider] -
[2024-08-31] MEDS: OPTIRAY 320 125ml IV ONE (09:08)
--- NOTE | 2024-08-31 09:15 | CT Scan Report ---
CT head/brain wo con CLINICAL HISTORY: Neuro deficit, acute, stroke suspected. TECHNIQUE: Multiple axial CT images of the head were obtained without contrast. A dose lowering tech nique was utilized adhering to the principles of ALARA. CT DOSE: 1117 COMPARISON: None FINDINGS: No intracranial hemorrhage seen. No mass effect, midline shift, or hydrocephalus. No skull fracture seen. Visualized paranasal sinuses and mastoid air cells are clear. IMPRESSION: No acute findings. ACT 112: Negative or not required by law. The above report was generated using voice recognition software. It may contain grammatical, syntax o r spelling errors. Electronically signed by: Cristofer Macias M.D. 08/31/2024 9:14 AM
[2024-08-31 09:21] LABS: Hematocrit (blood only) 34.1 % (37.0-47.0); Hemoglobin 11.4 g/dl (12.0-16.0); Mean Corpuscular Hgb Conc 33.4 g/dL (32.0-36.0); Mean Corpuscular Volume 92.7 fL (80.0-100.0); Mean Platelet Volume 11.4 fL (9.4-12.4); Platelet Count 192 K/uL (130-400); RDW Coefficient of Variation 13.5 % (11.5-14.5); Red Blood Count 3.68 M/uL (4.20-5.40); White Blood Count 5.51 K/ul (4.8-10.8)
[2024-08-31 09:24] LABS: iSTAT Creatinine 0.9 mg/dl (0.6-1.3); iSTAT Hemoglobin 11.6 g/dl (12.0-16.0); iSTAT Ionized Calcium 1.11 mmol/l (1.12-1.32); iSTAT Potassium 4.4 mmol/L (3.3-5.0)
[2024-08-31] MEDS ORDERED: No Aspirin within 24hrs of THROMBOLYTIC-Stroke PO SCH (09:30)
--- NOTE | 2024-08-31 09:30 | CT Scan Report ---
CT angio head w con, CT angio neck with con CLINICAL HISTORY: 69 years-old Female with stroke like symptoms. Acute strokelike symptoms COMPARISON STUDY: Head CT of same day TECHNIQUE: Following the IV administration of 112 cc of Optiray, CT angiogram of the head and neck wa s performed from the aortic arch to the skull apex. Images are reviewed in the axial, sagittal, and c oronal planes. 3-D MIPS images are created and assessed. IV contrast was administered without complic ation. All measurements were obtained according to NASCET criteria. A dose lowering technique was uti lized adhering to the principles of ALARA. CT DOSE: 1117. mGy.cm FINDINGS: CT BRAIN: Dictated separately. Involutional changes with chronic microvascular ischemic disease. CT ANGIOGRAM OF THE HEAD AND NECK: Three-vessel morphology of the thoracic arch. Patency of the innominate and imaged subclavian arterie s. Common and internal carotid arteries are widely patent. Occlusion involves an M2 branch of the lef t middle cerebral artery, image 108 series 6 within the sylvian fissure. Otherwise patent bilateral a nterior and right-sided middle cerebral arteries. The vertebrobasilar system and posterior cerebral a rteries are widely patent. There is no aneurysm, high-grade stenosis, or additional proximal branch o cclusion identified. Dural sinuses appear patent. Lung apices are clear. Unremarkable soft tissues. Multilevel degenerative changes of the cervical spi ne. IMPRESSION: 1. Occlusion of an M2 branch of the left middle cerebral artery, likely secondary to acute thrombus. 2. Otherwise unremarkable CTA of the head and neck. ACT 112: Negative or not required by law. The above report was generated using voice recognition software. It may contain grammatical, syntax o r spelling errors. Electronically signed by: Skyler Ellis M.D. 08/31/2024 9:28 AM
[2024-08-31 09:33] LABS: INR 0.9 (0.9-1.1); Partial Thromboplastin Ratio 0.9; Partial Thromboplastin Time 24 Seconds (21-31); Prothrombin Time 9.8 Seconds (9.0-12.0)
[2024-08-31] MEDS: TENECTEPLASE 19 MG in SYRINGE 0 ML IV ONE (09:37)
[2024-08-31 09:46] LABS: Albumin Globulin Ratio 1.8 (0.9-2); Albumin Level 4.2 gm/dl (3.4-5.0); BUN Creatinine Ratio 19.8 (10-20); Bilirubin,Total 0.4 mg/dl (0.2-1.0); Calcium 8.9 mg/dl (8.6-10.3); Creatinine Clr Calc Pharmacy 62.5 ml/min; Globulin 2.3 gm/dl (2.5-4.0); Potassium 4.3 mmol/L (3.5-5.1); Total Protein 6.5 gm/dl (6.0-8.3)
--- NOTE | 2024-08-31 10:18 | XRay Report ---
XR chest 1V portable CLINICAL HISTORY: stroke alert COMPARISON STUDY: 03/12/2023 FINDINGS: Stable mild cardiomegaly without pulmonary vascular congestion. No effusion, consolidation, or pneumothorax. IMPRESSION: No acute findings. ACT 112: Negative or not required by law. Electronically signed by: Cristofer Macias M.D. 08/31/2024 10:16 AM
[2024-08-31] MEDS ORDERED: PHARMACIST DISCHARGE MED REC CONSULT PRN (10:21)
--- NOTE | 2024-08-31 10:25 | CT Scan Report ---
CT head/brain wo con CLINICAL HISTORY: Stroke Alert. Follow-up TNK. TECHNIQUE: Multiple axial CT images of the head were obtained without contrast. A dose lowering tech nique was utilized adhering to the principles of ALARA. CT DOSE: 625.8 mGy.cm COMPARISON: Exam earlier today FINDINGS: There is expected intravascular contrast. No intracranial hemorrhage seen. No mass effect, midline shift, or hydrocephalus. IMPRESSION: No intracranial hemorrhage seen. ACT 112: Negative or not required by law. The above report was generated using voice recognition software. It may contain grammatical, syntax o r spelling errors. Electronically signed by: Cristofer Macias M.D. 08/31/2024 10:23 AM
--- NOTE | 2024-08-31 10:28 | History & Physical Report ---
Date of Service August 31, 2024 Assessment & Plan (1) Acute CVA (cerebrovascular accident): (2) Expressive aphasia: Plan This is a 69 year old female with past medical history of GERD, hypothyroidism, hyperlipidemia who presented to the ED on 08/31/24 for stroke like symptoms. While in the ED she was found to have stable CBC/BMP. Initial head ct negative. Head/neck CTA significant for occlusion M2 branch of L MCA secondary to acute thrombus. TNK was administered around 9:[address] around 10am negative for intracranial hemorrhage. #Acute CVA s/p TNK @ 9:37 am on 08/31/24 - avoid anticoagulation Head CT negative prior & after TNK administered Head/Neck CTA: occlusion of M2 branch of L MCA secondary to acute thrombus CBC/BMP stable EKG normal sinus; CXR negative [place] [facility] consulted in ED --> concern that if she has significant sym ptoms then she should be transferred. Given improvement in symptoms hold on transfer but if she develops any changes in neurological status/headache, [facility] tel[facility]roke should be consulted for re-eval & potential transfer. Recommended SBP > 160 for next 24 hours. Neurology consulted, appreciate recommendations Clinical Ob consulted, appreciate recommendations Allow for permissive HTN fo 24-48 hours Echo 2019 was normal --> repeat pending w/ bubble study Given expressive aphasia, fails dysphagia screening -> maintain NPO status for now CBC, BMP, Hgb A1c, Lipid panel in AM #Hypothyroidism TSH WNL 04/2024, repeat in AM #GERD - PPI/Pepcid DVT prophylaxs - Hold chemical in setting of TNK Code: Full Case discussed w/ Dr. Byrd at time of admission Updated family at bedside 08/31. History of Present Illness Primary Care Provider: Malvin Bliss MD This is a 69 year old female with past medical history of GERD, hypothyroidism, hyperlipidemia who presented to the ED on 08/31/24 for stroke like symptoms. Danuta was seen and examined with family at bedside. Danuta still showing symptoms of expressive aphasia and was able to provide the history. He reports that around 8-8:15 AM she started to have difficulty speaking. Reports she was unable to get words out. Also w/ reports of right sided weakness. Upon presentation to the ER, she was a candidate for TNK and this was administered. reports that after she was given this her speaking became better. However after she went for a repeat CT scan he felt she regressed on her symptoms but was still better than when she reported to the ED. She was able to answer yes & no to ROS. Denies chest pain, SOB, lower extremity edema. Denies hx of high BP. Denies nausea/vomiting, abdominal pain. Denies any urinary symptoms. While in the ED she was found to have stable CBC/BMP. Initial head ct negative. Head/neck CTA significant for occlusion M2 branch of L MCA secondary to acute thrombus. TNK was administered around 9:[address] around 10am negative for intracranial hemorrhage. Code discussed w/ the patient and she does confirm she is a full code. Allergies Allergy/AdvReac Type Severity Reaction Status Date / Time clindamycin Allergy Unknown DIARRHEA, Verified 06/03/24 11:03 URINARY FREQUENCY & uti's. lovastatin [From Mevacor] AdvReac Unknown myalgia Verified 06/03/24 11:03 niacin AdvReac Unknown myalgia Verified 06/03/24 11:03 pravastatin [From Pravachol] AdvReac Unknown myalgia Verified 06/03/24 11:03 simvastatin [From Zocor] AdvReac Unknown myalgia Verified 06/03/24 11:03 Gxngyeg-TPY-ZrA Reductase AdvReac Unknown MUSCLE Verified 06/03/24 11:03 Inhibitor PAINS [Kyokvop-Sze-Olq Reductase Inhibitor] Home Medications Medication Instructions Recorded Confirmed Type multivitamin 1 tab PO QAM 10/21/18 08/31/24 History cholecalciferol (vitamin D3) 50 2,000 units PO QAM 11/03/18 08/31/24 History mcg (2,000 unit) tablet (Vitamin D3) Black Seed Oil Cold Press 2 cap PO QAM 10/05/19 08/31/24 History ascorbic acid 1,000 1 ea PO UD PRN fall/winter per 11/24/23 08/31/24 History gt-xwnbknabkkab-mtiuezox powder choice effervescent pack (Emergen-C) fexofenadine 180 mg tablet 180 mg PO HS 11/24/23 08/31/24 History ezetimibe 10 mg tablet 10 mg PO HS #90 tabs 03/04/24 08/31/24 Rx aspirin 81 mg tablet,delayed 81 mg PO DAILY 05/03/24 08/31/24 History release famotidine 20 mg tablet 20 mg PO BID #180 tabs 08/22/24 08/31/24 Rx calcium carbonate 500 mg PO DAILY 08/31/24 08/31/24 History levothyroxine 50 mcg tablet 50 mcg PO DAILYBB 08/31/24 08/31/24 History (Synthroid) pantoprazole 40 mg tablet,delayed 40 mg PO DAILY gerd 08/31/24 08/31/24 History release Past Med/Surg History Problem List (Updated 08/31/24 @ 10:54 by Mahi Arevalo MD) Expressive aphasia (Acute) Acute CVA (cerebrovascular accident) (Acute) Right elbow pain Status post left knee replacement (~01/2024) Right knee DJD Left knee DJD History of breast cancer 2015 Hypothyroidism Elevated liver enzymes LFTs WNL 08/2023 Cardiomegaly Mild on 03/2023 CXR No acute issues noted on 2019 ECHO Fatty liver Insomnia GERD (gastroesophageal reflux disease) Hyperlipidemia Hydronephrosis of right kidney Renal cyst Kidney stones Medical History (Updated 08/31/24 @ 10:54 by Mahi Arevalo MD) Coronary artery calcification Noted incidentally on CT scan in 2017- seen by [facility] 2018- follow up PRN Follows with PCP- on ASA and Zetia History of COVID-19 (2022) No current issues Osteoarthritis History of sciatica Occurs occasionally- well controlled currently Renal cyst small , not sure if still there. History of right breast cancer (2015) hx right lumpectomy. hx 20 radiation tx's. no chemo no limb restriction per patient History of anemia no current iron supplements Kidney stones 6mm left, multiple small on the right. No change in the last 2-3 yrs. Upcoming lithotripsy planned for spring as long as no changes prior. Fatty liver No current issues with LFTs per patient GERD (gastroesophageal reflux disease) well controlled and stable Hypothyroidism Hyperlipidemia Surgical History History of left knee replacement History of appendectomy History of bilateral tubal ligation History of breast biopsy History of lithotripsy History of colonoscopy History of lumpectomy of right breast Family History Sister Prediabetes Liver cancer Stroke Heart disease Alzheimer disease Grandmother (Maternal) Family history of diabetes mellitus Mother Hypertension Hypothyroidism Osteoarthritis Father Coronary heart disease Hypertension Prostate cancer Other No family history of adverse response to anesthesia Denies family history of Ovarian cancer Breast cancer Colorectal cancer Social History Smoking Status: Never smoker Second Hand Exposure: No; Do You Dip or Chew Tobacco: No; Hx Alcohol Use: No Hx Substance Use: No Preferred Language: Ukrainian Communication Ability: expressive Hearing Ability: Normal Veneer Matcher Required: No Beliefs That Will Affect Care: None marital status: Current Living Situation: Spouse Current Living Situation Comment: lives with current occupational status: retired Feels Safe at Home: Yes Childhood Exposure to Second-Hand Smoke: Yes Diet: regular caffeine: No Dental Care, Regularly: Yes Physical Activity Frequency: Daily Seatbelt Use: always Sunscreen Use: Yes Assistive Devices: Glasses Physical Exam Physical Exam: General: no acute distress; non-toxic appearing; well-nourished; cooperative HEENT: normocephalic, atraumatic; no scleral icterus; PERRLA w/ EOMs intact; vision and hearing grossly intact Neck: trachea midline Skin: warm, dry without signs of tenting; no cyanosis; no rashes, bruising, lesions, or erythema noted CV: RRR; S1/S2 normal; no murmurs/rubs/gallops Lungs: no acute respiratory distress; symmetrical chest wall expansion; clear breath sounds across all lung andrew w/o adventitious sounds; no wheezing ABD: Soft, NTP; BS present; no rebound/guarding; no distention MSK: no edema noted in the LEs b/l, nonerythematous; strength 5/5 in b/l lower & upper extremities. able to raise all extremities equally & w/o drifting Neuro: A&Ox3; normal mood and affect; no facial droop. sensation in tact to b/l upper/lower extremities & face. aphasia +. Able to speak yes/no but not in full sentences. Results & Data Results & Data Vital Signs (Past 12 Hours) Vital Signs Temp Pulse Pulse Resp BP BP Pulse Ox 08/31/24 10:20 68 19 152/77 H 99 08/31/24 10:12 73 18 124/104 H 99 08/31/24 09:50 70 22 135/104 H 100 08/31/24 09:35 67 24 165/91 H 100 08/31/24 09:15 72 08/31/24 08:50 36.2 C L 77 20 163/86 H 100 08/31/24 08:45 97 O2 Del Method 08/31/24 10:20 Room Air 08/31/24 10:12 Room Air 08/31/24 09:50 Room Air 08/31/24 09:35 Room Air 08/31/24 09:15 08/31/24 08:50 Room Air 08/31/24 08:45 Room Air Supervising Physician Co-Signing Physician Notes I personally saw and examined the patient. I independently reviewed the labs, EKG, imaging, problem list, medication list, past medical history and family history. I verified all arteaga points and agree with Vicky Saini PA-C with the following exceptions and/or additions: 69 year old presents to the ER with slurring words and dizziness. Left arm not feeling right. O/E HS RRR, no murmurs, Chest CTAB, Abdo SNT, expressive and receptive dysphasia, PERRL, difficult exam as she is having difficulty obeying commands. No pronator drift, possible reduced awareness of right side, no objective limb weakness, unable to complete sensory exam adequately given expressive dysphasia A/P Acute CVA - discussed with [facility] by ER given occulision of an M2 branch of left middle cerebral artery, recommended TNK, mild improvement from description on arrival to ER, admit to ICU, stroke with TNK order set PG Care Time/CCT Total # of Minutes Spent Total Time Spent with Patient: Total time spent is greater than 50% in coordination of care (as documented) at patient's floor/unit and/or counseling patient: Coding Level of Care Code 75995 INT INP/OBS CARE 3/75MIN Diagnoses Acute CVA (cerebrovascular accident) I63.9 Expressive aphasia R47.01
[2024-08-31] MEDS: SODIUM CHLORIDE 0.9% 1,000 ML IV ONE (10:33)
[2024-08-31] MEDS: LACTATED RINGER'S 1,000 ML IV SCH (12:46)
[2024-08-31 13:27] VITALS: TEMP 98.6
[2024-08-31] MEDS: SODIUM CHLORIDE 0.9% 10ML FLUSH IV STA (13:40)
[2024-08-31] MEDS: ICU Protocol for HYPERglycemia SCH (13:41)
[2024-08-31] MEDS: STAT IV/IM STA (13:41)
[2024-08-31] MEDS: FAMOTIDINE 20MG IV PUSH 20 MG/5 ML SYR IV SCH (13:43)
--- NOTE | 2024-08-31 14:03 | Critical Care Consultation ---
Date of Consultation August 31, 2024 Assessment & Plan (1) Acute CVA (cerebrovascular accident): (2) Expressive aphasia: (3) Hypothyroidism: (4) GERD (gastroesophageal reflux disease): (5) Hyperlipidemia: (6) Fatty liver: Plan Danuta Dumont 69-year-old female with PMHX of GERD, hypothyroidism, hyperlipidemia, breast CA (2015); who presented to [facility] as a stroke alert with speech difficulty. Patient's Last known well was 0800. At 0815 patient had difficulty verbalizing and speech sounded strange to family. EMS was called and the patient was brought into [facility] as a stroke alert. Patient found to have left M2 occlusion s/p TNK with inital improvement of symptoms which unfortunately worsened to global aphasia necessitating transfer for possible mechanical thrombectomy. Neuro: Acute ischemic stroke; Left M2 occlusion s/p TNK -CT head negative at 0930 -CTA head and neck showed left M2 occlusion. -TNK at 0940 -NIH 5. Improved s/p TNK. On eval to ICU NIH 7 for global aphasia and mild slurred speech. -Repeat CTH negative for ICH. -Plan for transfer to [facility] for possible mechanical thromebctomy -Maintain SBP < 180/105; PRNS or cardene gtt as need to maintain goal -Ideally MAP > 80 achieving own. -Hgba1c pending -Statin ordered. Lipid panel pending -Neuro checks per protocol. CV: No issues BP goals as above. -No need for PRN or cardene at this time. Pulm: No issues -Maintain SpO2 > 94% given stroke -On room air maintian goal GI: NPO. Speech consult once able -Advance diet as tolerated. : -NO issue -Creat 0.81 -Monitor renal function qam Heme: -No signs of bleeding -Bedrest for 24hrs post TNK. Endo: -Hgba1c pending -Maintain BG < 180 ID: No issues -Monitor and culture as appropriate Prophylaxis: -Hold DVT chemoprophylaxis in setting of recent TNK -PPI ordered. Home med -SCD for mechanical DVT prophyalxis Disposition: ICU for left MCA occlusion M2 branch s/p TNK with worsening symptoms plan to transfer to [facility] for possible thrombectomy. Patiet nis full code. Family updated at bedside by ICU provider. Supervising Physician Co-Signing Physician Notes Patient seen and examined. EMR reviewed. Discussed with CLYDE as well as with bedside critical care nurse and ER staff. Assessment plan as noted above. We assessed the patient on arrival to the ICU. This is about 4 to 5 hours after she received systemic thrombolytics. Unfortunately on my assessment she had fairly significant expressive aphasia and apraxia. Given the M2 occlusion and borderline large vessel obstruction, her she was again contacted to evaluate for potential salvage endovascular therapy. They agreed and the patient is being transferred for higher level care and consideration of endovascular interven tion. She remains hemodynamically stable. Family was updated on several occasions. Questions were answered. They expressed understanding and are in agreement with the plan as outlined History of Present Illness Reason for Consultation: Global aphasia w/ Left MCA M2 occlusion s/p TNK Attending Physician: Jimi Byrd MD History of Present Illness Danuta Dumont 69-year-old female with PMHX of GERD, hypothyroidism, hyperlipidemia, breast CA (2015); who presented to [facility] as a stroke alert with speech difficulty. Patient's Last known well was 0800. At 0815 patient had difficulty verbalizing and speech sounded strange to family. EMS was called and the patient was brought into [facility] as a stroke alert. Initial NIH was [address] head was negative for intracranial hemorrhage. CTA showed a left MCA M2 occlusion. TNK given at 0940. After TNK patient had improvement of symptoms to almost baseline. Given the improvement she was deemed to not need mechanical thrombectomy. At approximally 1300 patient evaluated by ICU provider and patient noted to have an NIH of 7 for global aphasia. Repeat CT head showed no hemorrhage. [facility] stroke service reconsulted and patient deemed to be a candidate for mechanical thrombectomy and plan to transfer to [facility]. Allergies Allergy/AdvReac Type Severity Reaction Status Date / Time clindamycin Allergy Unknown DIARRHEA, Verified 06/03/24 11:03 URINARY FREQUENCY & uti's. lovastatin [From Mevacor] AdvReac Unknown myalgia Verified 06/03/24 11:03 niacin AdvReac Unknown myalgia Verified 06/03/24 11:03 pravastatin [From Pravachol] AdvReac Unknown myalgia Verified 06/03/24 11:03 simvastatin [From Zocor] AdvReac Unknown myalgia Verified 06/03/24 11:03 Fqiggfb-EIQ-TmJ Reductase AdvReac Unknown MUSCLE Verified 06/03/24 11:03 Inhibitor PAINS [Tyszemq-Vts-Sxo Reductase Inhibitor] Home Medications Medication Instructions Recorded Confirmed Type multivitamin 1 tab PO QAM 10/21/18 08/31/24 History cholecalciferol (vitamin D3) 50 2,000 units PO QAM 11/03/18 08/31/24 History mcg (2,000 unit) tablet (Vitamin D3) Black Seed Oil Cold Press 2 cap PO QAM 10/05/19 08/31/24 History ascorbic acid 1,000 1 ea PO UD PRN fall/winter per 11/24/23 08/31/24 History qw-vtvulxpfvdqg-inuvspxt powder choice effervescent pack (Emergen-C) fexofenadine 180 mg tablet 180 mg PO HS 11/24/23 08/31/24 History ezetimibe 10 mg tablet 10 mg PO HS #90 tabs 03/04/24 08/31/24 Rx aspirin 81 mg tablet,delayed 81 mg PO DAILY 05/03/24 08/31/24 History release famotidine 20 mg tablet 20 mg PO BID #180 tabs 08/22/24 08/31/24 Rx calcium carbonate 500 mg PO DAILY 08/31/24 08/31/24 History levothyroxine 50 mcg tablet 50 mcg PO DAILYBB 08/31/24 08/31/24 History (Synthroid) pantoprazole 40 mg tablet,delayed 40 mg PO DAILY gerd 08/31/24 08/31/24 History release Patient History Medical History (Updated 08/31/24 @ 10:54 by Mahi Arevalo MD) Coronary artery calcification Noted incidentally on CT scan in 2018- seen by [facility] 2019- follow up PRN Follows with PCP- on ASA and Zetia History of COVID-19 (2022) No current issues Osteoarthritis History of sciatica Occurs occasionally- well controlled currently Renal cyst small , not sure if still there. History of right breast cancer (2015) hx right lumpectomy. hx 20 radiation tx's. no chemo no limb restriction per patient History of anemia no current iron supplements Kidney stones 6mm left, multiple small on the right. No change in the last 2-3 yrs. Upcoming lithotripsy planned for spring as long as no changes prior. Fatty liver No current issues with LFTs per patient GERD (gastroesophageal reflux disease) well controlled and stable Hypothyroidism Hyperlipidemia Surgical History History of left knee replacement History of appendectomy History of bilateral tubal ligation History of breast biopsy History of lithotripsy History of colonoscopy History of lumpectomy of right breast Family History Sister Prediabetes Liver cancer Stroke Heart disease Alzheimer disease Grandmother (Maternal) Family history of diabetes mellitus Mother Hypertension Hypothyroidism Osteoarthritis Father Coronary heart disease Hypertension Prostate cancer Other No family history of adverse response to anesthesia Denies family history of Ovarian cancer Breast cancer Colorectal cancer Social History Smoking Status: Never smoker Second Hand Exposure: No; Do You Dip or Chew Tobacco: No; Tobacco Cessation Education Requested by Patient: No Hx Alcohol Use: No Hx Substance Use: No Preferred Language: Pakistani Communication Ability: expressive Hearing Ability: Normal Therapist Asst Required: No Beliefs That Will Affect Care: None marital status: Current Living Situation: Spouse Current Living Situation Comment: lives with current occupational status: retired Other Information That Helps Us Care for You: No Feels Safe at Home: Yes Safety Concerns: Feels Safe At This Time Childhood Exposure to Second-Hand Smoke: Yes Diet: regular caffeine: No Dental Care, Regularly: Yes Physical Activity Frequency: Daily Seatbelt Use: always Sunscreen Use: Yes Assistive Devices: Glasses Review of Systems Review of Systems: Unobtainable due to cognitive status Physical Exam Physical Exam: VITALS: Reviewed. WEIGHT/BMI reviewed. GEN: Healthy appearing, well-developed, NAD. PSYCH: Pleasant, cooperative. HEENT -Head: NC/AT; -Eyes: PERRL, EOMI. No discharge or redn ess; -Ears: External ears are normal. Normal TMs. -Nose: Normal nares. -Mouth and throat: MMM. Normal gums, muc david, palate,. Good dentition. NECK: Supple, with no masses. CV: RRR, no m/r/g. LUNGS: CTAB, no w/r/c. chest rise symmetrical. Breathing nonlabored. ABD: Soft, NT/ND, NBS, no masses or organomegaly. : Voiding/incontinent. SKIN: Warm, well perfused. No skin rashes or abnormal lesions. MSK: No deformities, Normal gait. EXT: No clubbing, cyanosis, or edema. NEURO: OES, face symmetric, speech slightly garbled, noted new global aphasia, 5/5 all extremities, mimics/spontaneosuly moves all ext, EOM, pupils 3mm brisk. Results & Data Results & Data Vital Signs (Past 12 Hours) Vital Signs Temp Pulse Pulse Resp BP BP Pulse Ox 08/31/24 13:20 37.0 C 65 16 133/80 95 08/31/24 12:50 36.6 C 72 19 133/80 96 08/31/24 12:20 37.0 C 75 20 113/75 98 08/31/24 12:09 37.0 C 67 20 149/64 H 98 08/31/24 11:50 08/31/24 11:50 08/31/24 11:50 36.8 C 67 20 146/77 H 97 08/31/24 11:40 72 20 153/77 H 97 08/31/24 11:20 71 18 127/67 97 08/31/24 11:05 36.6 C 65 19 139/79 97 08/31/24 10:50 75 22 163/75 H 95 08/31/24 10:35 36.4 C L 71 17 164/93 H 98 08/31/24 10:20 68 19 152/77 H 99 08/31/24 10:12 99 08/31/24 10:12 73 18 124/104 H 99 08/31/24 09:50 70 22 135/104 H 100 08/31/24 09:35 67 24 165/91 H 100 08/31/24 09:15 72 08/31/24 08:50 36.2 C L 77 20 163/86 H 100 08/31/24 08:45 97 Pulse Ox O2 Del Method O2 Del Method 08/31/24 13:20 Room Air 08/31/24 12:50 Room Air 08/31/24 12:20 Room Air 08/31/24 12:09 Room Air 08/31/24 11:50 Room Air 08/31/24 11:50 98 Room Air 08/31/24 11:50 Room Air 08/31/24 11:40 Room Air 08/31/24 11:20 Room Air 08/31/24 11:05 Room Air 08/31/24 10:50 Room Air 08/31/24 10:35 Room Air 08/31/24 10:20 Room Air 08/31/24 10:12 Room Air 08/31/24 10:12 Room Air 08/31/24 09:50 Room Air 08/31/24 09:35 Room Air 08/31/24 09:15 08/31/24 08:50 Room Air 08/31/24 08:45 Room Air Critical Care Results & Data Vital Signs (Past 12 Hours) Vital Signs Temp Pulse Pulse Resp BP BP Pulse Ox 08/31/24 13:20 37.0 C 65 16 133/80 95 08/31/24 12:50 36.6 C 72 19 133/80 96 08/31/24 12:20 37.0 C 75 20 113/75 98 08/31/24 12:09 37.0 C 67 20 149/64 H 98 08/31/24 11:50 08/31/24 11:50 08/31/24 11:50 36.8 C 67 20 146/77 H 97 08/31/24 11:40 72 20 153/77 H 97 08/31/24 11:20 71 18 127/67 97 08/31/24 11:05 36.6 C 65 19 139/79 97 08/31/24 10:50 75 22 163/75 H 95 08/31/24 10:35 36.4 C L 71 17 164/93 H 98 08/31/24 10:20 68 19 152/77 H 99 08/31/24 10:12 99 08/31/24 10:12 73 18 124/104 H 99 08/31/24 09:50 70 22 135/104 H 100 08/31/24 09:35 67 24 165/91 H 100 08/31/24 09:15 72 08/31/24 08:50 36.2 C L 77 20 163/86 H 100 08/31/24 08:45 97 Pulse Ox O2 Del Method O2 Del Method 08/31/24 13:20 Room Air 08/31/24 12:50 Room Air 08/31/24 12:20 Room Air 08/31/24 12:09 Room Air 08/31/24 11:50 Room Air 08/31/24 11:50 98 Room Air 08/31/24 11:50 Room Air 08/31/24 11:40 Room Air 08/31/24 11:20 Room Air 08/31/24 11:05 Room Air 08/31/24 10:50 Room Air 08/31/24 10:35 Room Air 08/31/24 10:20 Room Air 08/31/24 10:12 Room Air 08/31/24 10:12 Room Air 08/31/24 09:50 Room Air 08/31/24 09:35 Room Air 08/31/24 09:15 08/31/24 08:50 Room Air 08/31/24 08:45 Room Air Lab & Micro Results (Past 24 Hours) RBC 3.68 M/uL (4.20-5.40) L 08/31/24 WBC 5.51 K/ul (4.8-10.8) 08/31/24 Hgb 11.4 g/dl (12.0-16.0) L 08/31/24 Hct 34.1 % (37.0-47.0) L 08/31/24 MCV 92.7 fL (80.0-100.0) 08/31/24 MCH 31.0 pg (25.0-34.0) 08/31/24 MCHC 33.4 g/dL (32.0-36.0) 08/31/24 RDW Standard Deviation 46.0 fL (36.4-46.3) 08/31/24 RDW Coefficient of Variation 13.5 % (11.5-14.5) 08/31/24 Plt Count 192 K/uL (130-400) 08/31/24 MPV 11.4 fL (9.4-12.4) 08/31/24 Na 134 mmol/L (136-145) L 08/31/24 K 4.3 mmol/L (3.5-5.1) 08/31/24 Cl 103 mmol/L (98-107) 08/31/24 CO2 28 mmol/L (21-32) 08/31/24 Anion Gap 3 (3-11) 08/31/24 BUN 16 mg/dl (6-23) 08/31/24 Creatinine 0.81 mg/dl (0.6-1.2) 08/31/24 BUN/Creatinine Ratio 19.8 (10-20) 08/31/24 Glu 94 mg/dl (70-99(Fasting)) 08/31/24 Ca 8.9 mg/dl (8.6-10.3) 08/31/24 Total Bilirubin 0.4 mg/dl (0.2-1.0) 08/31/24 AST 34 U/L (13-39) 08/31/24 ALT 42 U/L (7-52) 08/31/24 Alkaline Phosphatase 72 U/L (34-104) 08/31/24 TP 6.5 gm/dl (6.0-8.3) 08/31/24 Albumin 4.2 gm/dl (3.4-5.0) 08/31/24 Globulin 2.3 gm/dl (2.5-4.0) L 08/31/24 Albumin/Globulin Ratio 1.8 (0.9-2) 08/31/24 Mg 2.0 mg/dl (1.7-2.4) 08/31/24 09:09 Calcium Level 8.9 mg/dl (8.6-10.3) 08/31/24 09:09 Prothromb Time International Ratio 0.9 (0.9-1.1) 08/31/24 09:0 9 Diagnostic Findings (Past 24 Hours) Chest X-Ray 08/31/24 08:55 XR chest 1V portable CLINICAL HISTORY: stroke alert COMPARISON STUDY: 03/12/2023 FINDINGS: Stable mild cardiomegaly without pulmonary vascular congestion. No effusion, consolidation, or pneumothorax. IMPRESSION: No acute findings. ACT 112: Negative or not required by law. Electronically signed by: Cristofer Macias M.D. 08/31/2024 10:[address] 08/31/24 08:55 CT head/brain wo con CLINICAL HISTORY: Neuro deficit, acute, stroke suspected. TECHNIQUE: Multiple axial CT images of the head were obtained without contrast. A dose lowering technique was utilized adhering to the principles of ALARA. CT DOSE: 1117 COMPARISON: None FINDINGS: No intracranial hemorrhage seen. No mass effect, midline shift, or hydrocephalus. No skull fracture seen. Visualized paranasal sinuses and mastoid air cells are clear. IMPRESSION: No acute findings. ACT 112: Negative or not required by law. The above report was generated using voice recognition software. It may contain grammatical, syntax or spelling errors. Electronically signed by: Cristofer Macias M.D. 08/31/2024 9:14 AM Head CTA 08/31/24 08:55 CT angio head w con, CT angio neck with con CLINICAL HISTORY: 69 years-old Female with stroke like symptoms. Acute strokelike symptoms COMPARISON STUDY: Head CT of same day TECHNIQUE: Following the IV administration of 112 cc of Optiray, CT angiogram of the head and neck was performed from the aortic arch to the skull apex. Images are reviewed in the axial, sagittal, and coronal planes. 3-D MIPS images are created and assessed. IV contrast was administered without complication. All measurements were obtained according to NASCET criteria. A dose lowering technique was utilized adhering to the principles of ALARA. CT DOSE: 1117. mGy.cm FINDINGS: CT BRAIN: Dictated separately. Involutional changes with chronic microvascular ischemic disease. CT ANGIOGRAM OF THE HEAD AND NECK: Three-vessel morphology of the thoracic arch. Patency of the innominate and imaged subclavian arteries. Common and internal carotid arteries are widely patent. Occlusion involves an M2 branch of the left middle cerebral artery, image 108 series 6 within the sylvian fissure. Otherwise patent bilateral anterior and right-sided middle cerebral arteries. The vertebrobasilar system and posterior cerebral arteries are widely patent. There is no aneurysm, high- grade stenosis, or additional proximal branch occlusion identified. Dural sinuses appear patent. Lung apices are clear. Unremarkable soft tissues. Multilevel degenerative changes of the cervical spine. IMPRESSION: 1. Occlusion of an M2 branch of the left middle cerebral artery, likely secondary to acute thrombus. 2. Otherwise unremarkable CTA of the head and neck. ACT 112: Negative or not required by law. The above report was generated using voice recognition software. It may contain grammatical, syntax or spelling errors. Electronically signed by: Skyler Ellis M.D. 08/31/2024 9:28 AM Neck CTA 08/31/24 08:55 CT angio head w con, CT angio neck with con CLINICAL HISTORY: 69 years-old Female with stroke like symptoms. Acute strokelike symptoms COMPARISON STUDY: Head CT of same day TECHNIQUE: Following the IV administration of 112 cc of Optiray, CT angiogram of the head and neck was performed from the aortic arch to the skull apex. Images are reviewed in the axial, sagittal, and coronal planes. 3-D MIPS images are created and assessed. IV contrast was administered without complication. All measurements were obtained according to NASCET criteria. A dose lowering technique was utilized adhering to the principles of ALARA. CT DOSE: 1117. mGy.cm FINDINGS: CT BRAIN: Dictated separately. Involutional changes with chronic microvascular ischemic disease. CT ANGIOGRAM OF THE HEAD AND NECK: Three-vessel morphology of the thoracic arch. Patency of the innominate and imaged subclavian arteries. Common and internal carotid arteries are widely patent. Occlusion involves an M2 branch of the left middle cerebral artery, image 108 series 6 within the sylvian fissure. Otherwise patent bilateral anterior and right-sided middle cerebral arteries. The vertebrobasilar system and posterior cerebral arteries are widely patent. There is no aneurysm, high- grade stenosis, or additional proximal branch occlusion identified. Dural sinuses appear patent. Lung apices are clear. Unremarkable soft tissues. Multilevel degenerative changes of the cervical spine. IMPRESSION: 1. Occlusion of an M2 branch of the left middle cerebral artery, likely secondary to acute thrombus. 2. Otherwise unremarkable CTA of the head and neck. ACT 112: Negative or not required by law. The above report was generated using voice recognition software. It may contain grammatical, syntax or spelling errors. Electronically signed by: Skyler Ellis M.D. 08/31/2024 9:[address] 08/31/24 10:04 CT head/brain wo con CLINICAL HISTORY: Stroke Alert. Follow-up TNK. TECHNIQUE: Multiple axial CT images of the head were obtained without contrast. A dose lowering technique was utilized adhering to the principles of ALARA. CT DOSE: 625.8 mGy.cm COMPARISON: Exam earlier today FINDINGS: There is expected intravascular contrast. No intracranial hemorrhage seen. No mass effect, midline shift, or hydrocephalus. IMPRESSION: No intracranial hemorrhage seen. ACT 112: Negative or not required by law. The above report was generated using voice recognition software. It may contain grammatical, syntax or spelling errors. Electronically signed by: Cristofer Macias M.D. 08/31/2024 10:23 AM I & O Totals 24 Hours 08/30/24 08/31/24 09/01/24 06:59 06:59 06:59 Intake Total 1000 / 1000 Output Total 0 / 0 Balance 1000 / 1000 Cumulative 08/31/24 08:44 thru 08/31/24 13:55 Intake Total 1000 Output Total 0 Balance 1000 RT Ventilator Mngmt (Last Documented) Ventilator Ordered Settings Respiratory Rate 16 08/31/24 13:20 Ventilator - PT Measurements Respiratory Rate 16 Coding Level of Care Code 27997 CRITICAL CARE 1ST 30-74M Diagnoses Acute CVA (cerebrovascular accident) I63.9 Expressive aphasia R47.01 Hypothyroidism E03.9 GERD (gastroesophageal reflux disease) K21.9 Hyperlipidemia E78.5 Fatty liver K76.0
--- NOTE | 2024-08-31 14:32 | CT Scan Report ---
CT head/brain wo con CLINICAL HISTORY: 69 years-old Female with eval global apashia s/p tnk. Acute stroke like symptoms TECHNIQUE: Multiple axial CT images of the head were obtained without contrast. A dose lowering tech nique was utilized adhering to the principles of ALARA. CT DOSE: 547.75 mGy.cm COMPARISON: 08/31/2024. FINDINGS: No acute intracranial hemorrhage, midline shift, intracranial mass, hydrocephalus, territorial ischem ia or abnormal extra-axial collection. Involutional changes with suggestion of mild chronic microvasc ular ischemic disease. The calvarium is intact. The paranasal sinuses, mastoid air cells, and middle ear cavities are clear . IMPRESSION: No acute intracranial abnormality. ACT 112: Negative or not required by law. The above report was generated using voice recognition software. It may contain grammatical, syntax o r spelling errors. Electronically signed by: Skyler Ellis M.D. 08/31/2024 2:31 PM
--- NOTE | 2024-08-31 14:40 | Discharge Summary ---
Discharge Summary Date of Service August 31, 2024 Principal Dx & Hospital Course #1 = Principal Diagnosis (1) Acute CVA (cerebrovascular accident): (2) Expressive aphasia: Plan This is a 69 year old female with past medical history of GERD, hypothyroidism, hyperlipidemia who presented to the ED on 08/31/24 for stroke like symptoms. While in the ED she was found to have stable CBC/BMP. Initial head ct negative. Head/neck CTA significant for occlusion M2 branch of L MCA secondary to acute thrombus. TNK was administered around 9:[address] around 10am negative for intracranial hemorrhage. #Acute CVA s/p TNK @ 9:37 am on 08/31/24 - avoid anticoagulation Head CT negative prior & after TNK administered Head/Neck CTA: occlusion of M2 branch of L MCA secondary to acute thrombus CBC/BMP stable EKG normal sinus; CXR negative [facility] consulted in ED --> concern that if she has significant symptoms then she should be transferred. Given improvement in symptoms hold on transfer but if she develops any changes in neurological status/headache, [facility] should be consulted for re-eval & potential transfer. Recommended SBP > 160 for next 24 hours. Allow for permissive HTN fo 24-48 hours Echo 2019 was normal --> repeat pending w/ bubble study Given expressive aphasia, fails dysphagia screening -> maintain NPO status for now Given plateau of symptoms, Isabel was recontacted and it was then recommended to transfer to [facility]. #Hypothyroidism TSH WNL 04/2024 #GERD - PPI/Pepcid DVT prophylaxis - Hold chemical in setting of TNK Code: Full Case discussed w/ Dr. Byrd Updated family at bedside 08/31. Admission HPI Per Admitting Provider This is a 69 year old female with past medical history of GERD, hypothyroidism, hyperlipidemia who presented to the ED on 08/31/24 for stroke like symptoms. Danuta was seen and examined with family at bedside. Danuta still showing symptoms of expressive aphasia and was able to provide the history. He reports that around 8-8:15 AM she started to have difficulty speaking. Reports she was unable to get words out. Also w/ reports of right sided weakness. Upon presentation to the ER, she was a candidate for TNK and this was administered. reports that after she was given this her speaking became better. However after she went for a repeat CT scan he felt she regressed on her symptoms but was still better than when she reported to the ED. She was able to answer yes & no to ROS. Denies chest pain, SOB, lower extremity edema. Denies hx of high BP. Denies nausea/vomiting, abdominal pain. Denies any urinary symptoms. While in the ED she was found to have stable CBC/BMP. Initial head ct negative. Head/neck CTA significant for occlusion M2 branch of L MCA secondary to acute thrombus. TNK was administered around 9:[address] around 10am negative for intracranial hemorrhage. Code discussed w/ the patient and she does confirm she is a full code. Discharge Plan Discharge Items Patient Disposition: Transfer Acute Care Hospital Reason For Visit: STROKE Discharge Diagnosis: CVA Condition on Discharge: Serious Activity: Per Instructions section Non-emergency contact: Primary Care Provider and Neurologist Call non-emergency contact if: you have any medication questions and your symptoms worsen Follow-up/Referrals: Malvin Bliss MD [Primary Care Provider] - Diet: Nothing by Mouth Addtl Attending Provider Instructions: Mrs. Dumont, You were recently hospitalized at our facility for stroke like symptoms. You were found to have a stroke on imaging and were given TNK as a result. You are being transferred to [facility] for further evaluation and potential procedures. Best of luck! Vicky Saini PA-C Pending Studies at Discharge: Yes Studies:: echo Stand-Alone Forms: [facility], Medications to Prevent Stroke Skilled Items Patient informed of condition?: Yes DNR: No Discharge Level of Care: Other Communicable Disease: No Discharge Prognosis: Stable Lines: Peripheral IV Urinary Catheter: No Medications and DC Order Prescriptions: Held cholecalciferol (vitamin D3) [Vitamin D3] 2,000 unit tablet 2,000 units PO QAM Hold Instructions: Resume on 09/03/24. Rx Instructions: Unable to verify OTC meds at this date/time. ezetimibe 10 mg tablet 10 mg PO HS Qty: 90 3RF Hold Instructions: Resume on 09/03/24. famotidine 20 mg tablet 20 mg PO BID Qty: 180 3RF Hold Instructions: Resume on 09/03/24. aspirin 81 mg tablet,delayed release (DR/EC) 81 mg PO DAILY Hold Instructions: Resume on 09/03/24. Rx Instructions: Unable to verify OTC meds at this date/time. multivitamin tablet 1 tab PO QAM Hold Instructions: Resume on 09/03/24. Rx Instructions: Unable to verify OTC meds at this date/time. Black Seed Oil Cold Press 2 cap PO QAM Hold Instructions: Resume on 09/03/24. Rx Instructions: Unable to verify OTC meds at this date/time. fexofenadine 180 mg Tablet 180 mg PO HS Hold Instructions: Resume on 09/03/24. Rx Instructions: Unable to verify OTC meds at this date/time. Emergen-C 1,000 mg Powder Effervescent In Packet 1 ea PO UD PRN (Reason: fall/winter per choice ) Hold Instructions: Resume on 09/03/24. Rx Instructions: Unable to verify OTC meds at this date/time. calcium carbonate 500 mg calcium (1,250 mg) Tablet 500 mg PO DAILY Hold Instructions: Resume on 09/03/24. Rx Instructions: Unable to verify OTC meds at this date/time. levothyroxine [Synthroid] 50 mcg tablet 50 mcg PO DAILYBB Hold Instructions: Resume on 09/03/24. pantoprazole 40 mg tablet,delayed release (DR/EC) 40 mg PO DAILY Hold Instructions: Resume on 09/03/24. Discharge Orders: Discharge Order (Routine); Ordered 08/31/24 Ordered By: Vicky Carmen/Other Patient Handouts: What Is Aphasia?, Treating Aphasia, Discharge Instructions for Stroke Admission Data Admit Date/Time: 08/31/24 10:11 Attending Provider: Jimi Byrd Admit Provider: Jiim Byrd Primary Care Provider: Malvin Bliss Other Providers: Mitchel Barillas; Zhao Davis Other Interventions: Discharge Summary Assessment (RN) Last Done: 08/31/24 14:50 Hospital Stay Data Consultations 08/31/24 10:11 Consult Production Reproduction Manager Routine 08/31/24 10:21 Consult Neurology Routine 08/31/24 10:29 ED Decision to Admit Stat 08/31/24 14:20 Burn CD for patient Stat Diagnostic Imagining Performed 08/31/24 08:55 CT head/brain wo con Stat CTA head w con [CT angio head w con] Stat CTA neck with con [CT angio neck with con] Stat 08/31/24 10:04 CT head/brain wo con Stat 08/31/24 13:53 CT head/brain wo con Stat 09/01/24 10:21 CT head/brain wo con Routine Discharge Instructions Given to Patient (Per Discharging Provider) Mrs. Dumont, Didier were recently hospitalized at our facility for stroke like symptoms. You were found to have a stroke on imaging and were given TNK as a result. You are being transferred to [facility] for further evaluation and potential procedures. Best of luck! Vicky Saini PA-C Total Time Total Time Spent Total Time Spent (In Minutes): 30 Coding Level of Care Code None Diagnoses Acute CVA (cerebrovascular accident) I63.9 Expressive aphasia R47.01
[2024-08-31] MEDS ORDERED: STROKE PATIENT DISCHARGE STA (14:45)
[2024-08-31 15:11] VITALS: BP 140/77; PULSE 72; RESP 20; O2SAT 96
[2024-09-01] MEDS ORDERED: PANTOprazole 40 MG/10 ML SYR IV SCH (09:00)
--- NOTE | 2024-09-01 10:08 | Neurology Consultation ---
Date of Consultation September 01, 2024 History of Present Illness Attending Physician: Jimi Byrd MD History of Present Illness Patient was discharged before seen Allergies Allergy/AdvReac Type Severity Reaction Status Date / Time clindamycin Allergy Unknown DIARRHEA, Verified 06/03/24 11:03 URINARY FREQUENCY & uti's. lovastatin [From Mevacor] AdvReac Unknown myalgia Verified 06/03/24 11:03 niacin AdvReac Unknown myalgia Verified 06/03/24 11:03 pravastatin [From Pravachol] AdvReac Unknown myalgia Verified 06/03/24 11:03 simvastatin [From Zocor] AdvReac Unknown myalgia Verified 06/03/24 11:03 Uksppra-MNV-UsY Reductase AdvReac Unknown MUSCLE Verified 06/03/24 11:03 Inhibitor PAINS [Fdlljtu-Dqo-Gud Reductase Inhibitor] Home Medications Medication Instructions Recorded Confirmed Type multivitamin 1 tab PO QAM 10/21/18 08/31/24 History cholecalciferol (vitamin D3) 50 2,000 units PO QAM 11/03/18 08/31/24 History mcg (2,000 unit) tablet (Vitamin D3) Black Seed Oil Cold Press 2 cap PO QAM 10/05/19 08/31/24 History ascorbic acid 1,000 1 ea PO UD PRN fall/winter per 11/24/23 08/31/24 History zx-xeimdxsbhhet-ztbfpqdl powder choice effervescent pack (Emergen-C) fexofenadine 180 mg tablet 180 mg PO HS 11/24/23 08/31/24 History ezetimibe 10 mg tablet 10 mg PO HS #90 tabs 03/04/24 08/31/24 Rx aspirin 81 mg tablet,delayed 81 mg PO DAILY 05/03/24 08/31/24 History release famotidine 20 mg tablet 20 mg PO BID #180 tabs 08/22/24 08/31/24 Rx calcium carbonate 500 mg PO DAILY 08/31/24 08/31/24 History levothyroxine 50 mcg tablet 50 mcg PO DAILYBB 08/31/24 08/31/24 History (Synthroid) pantoprazole 40 mg tablet,delayed 40 mg PO DAILY gerd 08/31/24 08/31/24 History release Patient History Medical History (Updated 08/31/24 @ 10:54 by Mahi Arevalo MD) Coronary artery calcification Noted incidentally on CT scan in 2018- seen by [facility] 2019- follow up PRN Follows with PCP- on ASA and Zetia History of COVID-19 (2022) No current issues Osteoarthritis History of sciatica Occurs occasionally- well controlled currently Renal cyst small , not sure if still there. History of right breast cancer (2015) hx right lumpectomy. hx 20 radiation tx's. no chemo no limb restriction per patient History of anemia no current iron supplements Kidney stones 6mm left, multiple small on the right. No change in the last 2-3 yrs. Upcoming lithotripsy planned for spring as long as no changes prior. Fatty liver No current issues with LFTs per patient GERD (gastroesophageal reflux disease) well controlled and stable Hypothyroidism Hyperlipidemia Surgical History History of left knee replacement History of appendectomy History of bilateral tubal ligation History of breast biopsy History of lithotripsy History of colonoscopy History of lumpectomy of right breast Family History Sister Prediabetes Liver cancer Stroke Heart disease Alzheimer disease Grandmother (Maternal) Family history of diabetes mellitus Mother Hypertension Hypothyroidism Osteoarthritis Father Coronary heart disease Hypertension Prostate cancer Other No family history of adverse response to anesthesia Denies family history of Ovarian cancer Breast cancer Colorectal cancer Social History Smoking Status: Never smoker Second Hand Exposure: No; Do You Dip or Chew Tobacco: No; Hx Alcohol Use: No Hx Substance Use: No Preferred Language: Slovenian Communication Ability: expressive Hearing Ability: Normal Hazardous Materials Analyst Required: No Beliefs That Will Affect Care: None marital status: Current Living Situation: Spouse Current Living Situation Comment: lives with current occupational status: retired Feels Safe at Home: Yes Childhood Exposure to Second-Hand Smoke: Yes Diet: regular caffeine: No Dental Care, Regularly: Yes Physical Activity Frequency: Daily Seatbelt Use: always Sunscreen Use: Yes Assistive Devices: Glasses PG Care Time/CCT Total # of Minutes Spent Total Time Spent with Patient: Total time spent is greater than 50% in coordination of care (as documented) at patient's floor/unit and/or counseling patient: Coding Level of Care Code None
--- NOTE | 2024-09-01 13:08 | Coding Query ---
CODING QUERY To promote full compliance with coding requirements relating to patient care, provider participation is requested in all cases of crushing mill operator uncertainty. Please assist us with the question(s) below: Coding Question(s): Right sided weakness was documented on ER with, "He reports that she was complaining of right sided weakness" (referring to ), and on the H&P with, "Also w/ reports of right sided weakness". Right sided weakness is not documented past the H&P. Please specify below, in your clinical opinion: ( X) Right Sided Weakness ( ) NO Right Sided Weakness Physician's Response(s): Thank you Maria Esther Aguilar Principal Diagnosis: "that condition established after study, to be chiefly responsible for occasioning the admission of the patient to the hospital for care." Co-Existing Principal Diagnosis: "when two or more diagnoses equally meet the criteria for principal diagnosis as determined by the circumstances of admission, diagnostic work up, and/or therapy provided, and the Alphabetic Index, Tabular List, or another coding guideline does not provide sequencing direction, any one of the diagnoses may be sequenced first." "When the physician has documented what appears to be a current diagnosis in the body of the record, but has not included the diagnosis in the final diagnostic statement, the physician should be asked whether the diagnosis should be added." (Source [facility]oding [facility] 2 QTR90. p3-4) PRADEEP
--- NOTE | 2024-09-01 14:37 | Electrocardiogram Report ---
Test Reason : Blood Pressure : */* mmHG Vent. Rate : 76 BPM Atrial Rate : 76 BPM P-R Int : 164 ms QRS Dur : 92 ms QT Int : 406 ms P-R-T Axes : 55 -26 18 degrees QTcB Int : 456 ms Normal sinus rhythm Incomplete right bundle branch block Minimal voltage criteria for LVH, may be normal variant ( R in aVL ) Nonspecific ST and T wave abnormality Abnormal ECG When compared with ECG of 10-Dec-2023 09:58, Incomplete right bundle branch block is now Present Confirmed by Vikram Garcia ([id number]) on 09/01/2024 2:36:24 PM Referred By: REFERRED SELF Confirmed By: Vikram Garcia
--- NOTE | 2024-09-02 14:39 | XCELERA ---
[id number]
== END 2024-08-31 15:37 | disposition short-term general hospital (02) | DRG 62 ==
LOC: ED 08:44 → 1E 10:11